=== PATIENT | male | born 1930 | race Caucasian/White ===

== ENCOUNTER 2018-01-22 06:35 | Outpatient (CLI) | payer MEDICARE, BC ==
[~2018-01-22] VITALS: Ht 167.6 cm; Wt 70.5 kg
[~2018-01-22 06:35] MED LIST: ARICEPT10 MG PO; NORVASC5 MG PO; PROSCAR5 MG PO; VASOTEC10 MG PO; ZOLOFT50 MG PO
[2018-01-22 06:45] VITALS: BP 161/94; Ht 167.6 cm; Wt 70.5 kg
[2018-01-22 07:08] LABS: BASOPHILS 0.3 % (0-2); EOSINOPHILS 2.8 % (0-7); HEMATOCRIT 34.1 % (42.0-54.0); HEMOGLOBIN 11.7 g/dL (13.5-17.5); IMMATURE GRANULOCYTES 0.3 % (0-5); LYMPHOCYTES 29.5 % (15-50); MCH 32.4 pg (26.0-34.0); MCHC 34.3 g/dL (31.0-37.0); MCV 94.5 fL (80.0-100.0); MEAN PLATELET VOLUME 9.6 fL (7.4-10.4); MONOCYTES 10.6 % (2-11); NEUTROPHILS 56.5 % (40-80); RBC 3.61 10x6/uL (4.20-6.10); RDW 12.7 % (11.5-14.5); WBC 6.5 10x3/uL (4.8-10.8)
[2018-01-22 07:11] LABS: PLATELET COUNT 263 10x3/uL (130-400)
[2018-01-22 07:17] LABS: CALCIUM 9.3 mg/dL (8.5-10.1); CARBON DIOXIDE 25.2 mmol/L (21.0-32.0); CREATININE - SERUM 2.8 mg/dL (0.6-1.3); POTASSIUM - SERUM 4.2 mmol/L (3.5-5.1)
[2018-01-22] MEDS ORDERED: ALEVE220 MG PO (09:28)
== END 2018-01-22 09:37 | disposition home or self-care (01) ==
LOC: D.CATH 06:35
PROVIDERS: Internal Medicine Cardiovascular Disease
DX: I20.9 Angina pectoris, unspecified (principal); Z53.09 Procedure and treatment not carried out because of other contraindication; Z01.812 Encounter for preprocedural laboratory examination

== ENCOUNTER 2018-03-03 10:08 | Outpatient (CLI) | payer MEDICARE, BC ==
[~2018-03-03] VITALS: Ht 167.6 cm; Wt 70.5 kg
--- NOTE | ~2018-03-03 | HEMODYNAMI ---
PATIENT:MO QUAN MEDICAL RECORD: [id number] : 32 LOCATION:[facility] ADMISSION DATE: 03/03/18 Generatedon:03/03/201816:12 Patient name: MO QUAN Patient #: [id number] SSN: [id number] : 1930 Date of study: 03/03/2018 Page: Of Hemodynamic Procedure Report Patient Data Patient Demographics Procedure consent was obtained First Name: MO Gender: Male Last Name: KADEEM : 1930 Middle Initial: ANIBAL Age: 88 year(s) Patient #: [id number] Race: SSN: [id number] Additional ID: [id number] Contact details [address]: [address] [place] [address] State: [place] City: [place] Zip code: [address] Admission Admission Data Admission Date: 03/03/2018 Admission Time: 10:08 Procedure Procedure Types Cath Procedure Diagnostic Procedure LHC LHC w/Coronaries Sedation Charges Moderate Sedation up to 15 minutes Procedure Description Procedure Date Procedure Date: 03/03/2018 Procedure Start Time: 15:45 Procedure End Time: 16:07 Procedure Staff Name Function Tangela Lo RT Monitor Silvia Mena RT Scrub Sterling Garcia RN Nurse Ramsey Peter MD Performing Physician Procedure Data Cath Procedure Fluoroscopy Diagnostic fluoroscopy Total fluoroscopy Time: 3.3 time: 3.3 min min Diagnostic fluoroscopy Total fluoroscopy dose: 327 dose: 327 mGy mGy Contrast Material Contrast Material Type Amount (ml) Isovue 300 46 Entry Location Entry Primary Successful Side Size Upsize Upsize Entry Closure Succes sful Closure Location (Fr) 1 (Fr) 2 (Fr) Remarks Device Remarks Radial Right 6 Fr Exoseal artery Short Estimated blood loss: 5 ml Diagnostic catheters Device Type Used For End Catheter Placement DIAGNOSTIC Georgi 110cm Multi-vessel 5Fr catheter ([id number]) Angiography Procedure Complications No complications Procedure Medications Medication Administration Route Dosage 0.9% NaCl I.V. 100 ml/hr Oxygen etCO2 Nasal cannula 2 l/min Heparin Flush Bag added to field 2 bags (1000units/500ml NS) Lidocaine 2% added to field 20 Radial Cocktail added to field 1 syringe (Verapomil 2mg/Nitro 400mcg/Heparin 1500units) Versed I.V. 1 mg Fentanyl I.V. 50 mcg Benadryl I.V. 50 mg Radial Cocktail I.A. 1 syringe (Verapomil 2mg/Nitro 400mcg/Heparin 1500units) Hemodynamics Rest Heart Rate: 61 (bpm) Pressure Samples Time Site Value (mmHg) Purpose Heart Use Rate(bpm) 15:58 LV 118/-3,8 Snapshot 61 15:59 AO 125/54(82) Pullback 57 15:59 LV 130/-4,4 Pullback 57 Gradients Valve Time Site 1 Site 2 Mean SEP/DFP Peak To Heart Use (mmHg) (sec/min) Peak Rate (mmHg) (bpm) Aortic 15:59 LV AO 11 13 5 57 130/-4,4 125/54(82) Calculations Valve P-P Mean Valve Index Valve Source Name Gradient Area Flow (cm2) Aortic 5 11 5 11 Snapshots Pre Cath Intra NCS Post Cath Vital Signs Time Heart Resp SPO2 etCO2 NIBP (mmHg) Rhythm Pain Sedation Rate (ipm) (%) (mmHg) Status Level (bpm) 15:31:48 61 12 100 0 173/102(144) NSR 0 (11) 10(A) , No pain 15:36:00 59 15 100 9.7 172/100(116) NSR 0 (11) 10(A) , No pain 15:40:08 63 14 100 14.9 179/103(119) NSR 0 (11) 10(A) , No pain 15:44:13 61 12 91 0.7 174/103(131) NSR 0 (11) 9(A) , No pain 15:48:22 59 16 93 0 155/83(96) NSR 0 (11) 9(A) , No pain 15:52:29 58 14 94 0 136/75(95) NSR 0 (11) 9(A) , No pain 15:56:29 58 12 91 0 143/78(97) NSR 0 (11) 9(A) , No pain 16:00:33 60 14 92 0 144/78(114) NSR 0 (11) 10(A) , No pain 16:04:28 59 14 92 0 141/90(106) NSR 0 (11) 10(A) , No pain Medications Time Medication Route Dose Verified Delivered Reason Notes Effectiveness by by 15:32:55 0.9% NaCl I.V. 100 Sterling Sterling Per ml/hr Radha Garcia physician RN RN 15:33:05 Oxygen etCO2 2 l/min Sterling Sterling Per Nasal Radha Garcia physician cannula RN RN 15:33:17 Heparin Flush added 2 bags Sterling Sterling used for Bag to Lorigan Radha procedure (1000units/500ml field RN RN NS) 15:33:28 Lidocaine 2% added 20ml Sterling Sterling for local to vial Lorigan Radha anesthetic field RN RN 15:33:43 Radial Cocktail added 1 Sterling Sterling used for (Verapomil to syringe Kateigan Radha procedure 2mg/Nitro field RN RN 400mcg/Heparin 1500units) 15:38:32 Versed I.V. 1 mg Sterling Sterling for sedation Radha Garcia RN RN 15:38:41 Fentanyl I.V. 50 mcg Sterling Sterling for sedation Radha Garcia RN RN 15:43:17 Benadryl I.V. 50 mg Sterling Sterling Per Kateigan Radha physician RN RN 15:47:43 Radial Cocktail I.A. 1 Sterling Ramsey for (Verapomil syringe Radha Peter MD vasodilation 2mg/Nitro RN 400mcg/Heparin 1500units) Procedure Log Time Note 15:14:13 Informed consent obtained and on chart 15:14:41 Diagnostic Cath Status : Elective 15:16:01 Leticia Arthur RN sent for patient. Start room use. 15:16:02 Time tracking: Regular hours (M-F 7:00 - 5:00) 15:16:07 Plan of Care:Hemodynamics will remain stable., Cardiac rhythm will remain stable., Comfort level will be maintained., Respiratory function will remain adequate., Patient/ family verbilizes understanding of procedure., Procedure tolerated without complication., Recovers from procedure without complications.. 15:30:41 Patient received from Pre/Post Procedure Room to [facility] 2 Alert and oriented. Tansferred to table in Supine position. 15:30:42 Warm blankets applied, and china hugger turned on for patient comfort. 15:30:42 Correct patient and procedure confirmed by team. 15:30:43 ECG and BP/O2 sat monitors applied to patient. 15:30:43 Vital chart was started 15:30:44 Baseline sample Acquired. 15:30:48 Rhythm: sinus rhythm 15:30:50 Full Disclosure recording started 15:30:54 H&P Date Dictated: 03/03/2018 Within 30 days and on chart., H&P Addendum completed by physician on day of procedure. (MUST COMPLETE FOR ALL OUTPATIENTS). 15:30:55 Pre-procedure instructions explained to patient. 15:30:56 Pre-op teaching completed and patient verbalized understanding. 15:30:57 Family in waiting room. 15:30:59 Patient NPO since Midnight. 15:31:01 Is the patient allergic to Iodine/contrast media? No. 15:31:02 Was the patient premedicated? No 15:31:10 Is patient on blood thinner?No 15:31:25 Patient diabetic? No. 15:31:27 Previous problem with sedation/anesthesia? No ? 15:31:29 Snore? Yes 15:31:30 Sleep apnea? No 15:31:31 Deviated septum? No 15:31:31 Opens mouth fully? Yes 15:31:32 Sticks out tongue? Yes 15:31:33 Airway obstruction? No ? 15:31:36 Dentures? No ? 15:31:40 Pre procedure: right dorsailis pedis pulse 2+ Normal; easily identifiable; not easily obliterated 15:31:42 Pre procedure: left dorsailis pedis pulse 2+ Normal; easily identifiable; not easily obliterated 15:31:44 Patient pain scale 0/10 ?. 15:31:51 IV patent on arrival in left forearm with 0.9% NaCl at [facility]. 15:31:53 Lab results completed and on chart. 15:32:01 Right Radial & Right Groin area was prepped with chlora-prep and draped in sterile fashion 15:32:02 Alarms reviewed by R. N. 15:32:03 Sharps counted by scrub and verified by R.N. 15:32:55 0.9% NaCl 100 ml/hr I.V. was administered by Sterling Garcia RN; Per physician; 15:33:05 Oxygen 2 l/min etCO2 Nasal cannula was administered by Sterling Garcia RN; Per physician; 15:33:17 Heparin Flush Bag (1000units/500ml NS) 2 bags added to field was administered by Sterling Garcia RN; used for procedure; 15:33:28 Lidocaine 2% 20ml vial added to field was administered by Sterling Garcia RN; for local anesthetic; 15:33:43 Radial Cocktail (Verapomil 2mg/Nitro 400mcg/Heparin 1500units) 1 syringe added to field was administered by Sterling Garcia RN; used for procedure; 15:34:57 Physician arrived 15::57 --------ALL STOP TIME OUT------ 15:34:59 Final Timeout: patient, procedure, and site verified with staff and physician. All members of the team are in agreement. 15:35:06 Right Radial & Right Groin site verified by team. 15:35:09 Physical assessment completed. ASA score P 2 - A patient with mild systemic disease as per Ramsey Peter MD. 15:35:15 Sedation plan: IV Moderate Sedation Medication:Versed, Fentanyl 15:36:11 Use device set Radial Dx or PCI 15:36:12 ACIST Syringe (61901) opened to sterile field. 15:36:12 Medline Cath Pack ([id number]) opened to sterile field. 15:36:13 Bag Decanter (2002) opened to sterile field. 15:36:13 DIAGNOSTIC WIRE .035 260cm J wire (900975) opened to sterile field. 15:36:14 ACIST Hand Control (52912) opened to sterile field. 15:36:14 ACIST Manifold (39571) opened to sterile field. 15:36:15 Tegaderm 4 x 4 (1626W) opened to sterile field. 15:36:16 SHEATH 6Fr Prelude Radial ([id number]) opened to sterile field. 15:36:17 MBrace Wrist Support ([id number]) opened to sterile field. 15:38:32 Versed 1 mg I.V. was administered by Sterling Garcia RN; for sedation; 15:38:41 Fentanyl 50 mcg I.V. was administered by Sterling Garcia RN; for sedation; 15:43:17 Benadryl 50 mg I.V. was administered by Sterling Garcia RN; Per physician; 15:45:32 Procedure started. 15:45:38 Local anesthetic to right radial artery with Lidocaine 2% by Ramsey Peter MD.INITIAL ACCESS ONLY 15:45:46 A 6 Fr Short sheath was inserted into the Right Radial artery 15:47:24 A DIAGNOSTIC Georgi 110cm 5Fr catheter (600332) was advanced over the wire and used for Multi-vessel Angiography. 15:47:43 Radial Cocktail (Verapomil 2mg/Nitro 400mcg/Heparin 1500units) 1 syringe I.A. was administered by Ramsey Peter MD; for vasodilation; 15:48:42 Catheter removed. unable to cannulate vessel. 15:49:16 SHEATH 5Fr Prelude ([id number]) opened to sterile field. 15:49:17 DIAGNOSTIC Multipack 5Fr catheter set (GI2276) opened to sterile field. 15:50:28 5 Fr jl 4 guide catheter was inserted over the wire 15:54:25 LCA angiography performed. 15:54:30 Injector settings: Ml/sec: 3, Volume: 6, 15:54:34 Catheter removed. 15:54:41 5 Fr 3drc guide catheter was inserted over the wire 15:56:01 RCA angiography performed. 15:56:03 Injector settings: Ml/sec: 3, Volume: 6, 15:57:39 Catheter removed. 15:57:47 5 Fr pigtail guide catheter was inserted over the wire 15:58:56 LV hemodynamics recorded. 15:58:58 LV gram done using PHILLIPS 15:59:00 Injector settings: Ml/sec: 5, Volume: 15, 15:59:11 EF : 60 % 15:59:35 Catheter removed. 16:01:33 EXOSEAL 5Fr (EX500) opened to sterile field. 16:01:49 Sheath removed intact; hemostasis achieved with Exoseal to the Right Radial artery. 16:01:51 Procedure ended.(Physican Out) 16:02:12 Fluoroscopy time 03.30 minutes. 16:02:32 Flurop Dose total: 327 16:02:32 Fluoroscopy dose: 327 mGy 16:03:10 TR BAND Standard ([id number]) opened to sterile field. 16:03:46 Contrast amount:Isovue 300 46ml. 16:03:47 Sharps counted by scrub and verified by R.N. 16:03:50 TR band inflated with 10cc of air. 16:03:52 Insertion/operative site no bleeding no hematoma. 16:05:18 Post-op/insertion site Right Femoral artery dressed using a 4 x 4 and Tegaderm. 16:05:22 Post right femoral artery:stable 16:05:24 Post Procedure Pulses reassessed and unchanged 16:05:27 Post procedure rhythm: unchanged. 16:05:29 Estimated blood loss: 5 ml 16:05:31 Post procedure instruction explained to patient.Patient verbalizes understanding. 16:05:31 Patient needs reinforcement of post procedure teaching. 16:06:21 Procedure type changed to Cath procedure, Diagnostic procedure, LHC, LHC w/Coronaries, Sedation Charges, Moderate Sedation up to 15 minutes 16:06:22 Procedure and supply charges have been captured, reviewed, submitted and are correct. 16:06:27 Procedure Complication : No complications 16:06:29 Vital chart was stopped 16:06:30 See physician's report for complete and final results. 16:07:33 Report given to Pre/Post Procedure Room. 16:07:36 Patient transfered to Pre/Post Procedure Room with Stretcher. 16:07:40 Procedure ended. 16:07:40 Full Disclosure recording stopped 16:07:45 End room use (Document Last) Device Usage Item Name Manufacture Quantity Catalog Number Hospital Part Current M inimal Lot# / Charge Number Stock Stock Serial# Code ACIST Syringe Acist 1 85356 468246 795566 420960 2 0 (15487) [employer] Inc Medline Cath Cardinal 1 [id number] 999660 65160 695730 5 [facility] ([id number]) Bag Decanter Microtek 1 586423 75095 925329 5 () Medical Inc. DIAGNOSTIC WIRE [address] [place] 1 569595 977892 762625 332209 3 0 .035 260cm J wire (702843) ACIST Hand Acist 1 81884 522959 583462 121892 5 Control (29171) [employer] Inc ACIST Manifold Acist 1 75130 471940 408123 212647 5 (95497) [employer] Inc Tegaderm 4 x 4 3M 1 1626W 316882 872435 633083 5 (1626W) SHEATH 6Fr Merit 1 [id number] 030375 523612 630101 5 Prelude Radial Medical ([id number]) MBrace Wrist Advanced 1 140-0250-00 386951 04805 385352 5 Support Vascular ([id number]) Dynamics DIAGNOSTIC Terumo 1 40-9719 730924 125974 454095 5 Georgi 110cm 5Fr catheter (284093) SHEATH 5Fr Merit 1 [id number] 560527 795295 202256 5 Prelude Medical ([id number]) DIAGNOSTIC Cardinal 1 NZ7726 179266 56575 343260 3 0 Multipack 5Fr Health catheter set (DX8874) EXOSEAL 5Fr Cardinal 1 EX500 063108 628930 039464 1 0 (EX500) Health TR BAND Terumo 1 [id number] 943268 484643 504235 4 0 Standard ([id number]) Signature Audit Sandpoint Stage Time Signature Unsigned Intra-Procedure 03/03/2018 Tangela Lo 4:11:56 PM RT(R) Signatures Monitor : Tangela Lo RT Signature : Date : Time : [address] [address]
[~2018-03-03 10:08] MED LIST changes: +ALEVE220 MG PO
[2018-03-03 10:34] VITALS: BP 136/87; Ht 167.6 cm; Wt 70.5 kg
[2018-03-03] MEDS ORDERED: NORMODYNE / TR200 MG PO (10:50)
[2018-03-03] MEDS ORDERED: CALCIUM 600+D T1 TA1 PO (10:51)
[2018-03-03] MEDS ORDERED: VITAMIN C1000 MG PO (10:51)
[2018-03-03 10:52] LABS: BASOPHILS 0.2 % (0-2); EOSINOPHILS 2.2 % (0-7); HEMATOCRIT 35.6 % (42.0-54.0); IMMATURE GRANULOCYTES 0.2 % (0-5); LYMPHOCYTES 20.9 % (15-50); MCH 32.9 pg (26.0-34.0); MCHC 33.7 g/dL (31.0-37.0); MCV 97.5 fL (80.0-100.0); MEAN PLATELET VOLUME 9.7 fL (7.4-10.4); MONOCYTES 8.5 % (2-11); PLATELET COUNT 230 10x3/uL (130-400); RBC 3.65 10x6/uL (4.20-6.10); RDW 13.1 % (11.5-14.5); WBC 8.6 10x3/uL (4.8-10.8)
[2018-03-03] MEDS ORDERED: CLARITIN 10 MG10 MG PO (10:52)
[2018-03-03 11:11] LABS: ANION GAP 15.3 mmol/L (8-16); CALCIUM 9.5 mg/dL (8.5-10.1); CARBON DIOXIDE 25.4 mmol/L (21.0-32.0); CREATININE - SERUM 2.6 mg/dL (0.6-1.3); POTASSIUM - SERUM 4.7 mmol/L (3.5-5.1)
== END 2018-03-03 19:35 | disposition home or self-care (01) ==
LOC: D.CATH 10:08
PROVIDERS: Internal Medicine Cardiovascular Disease
DX: I25.119 Atherosclerotic heart disease of native coronary artery with unspecified angina pectoris (principal); I12.9 Hypertensive chronic kidney disease with stage 1 through stage 4 chronic kidney disease, or unspecified chronic kidney disease; N18.9 Chronic kidney disease, unspecified

== ENCOUNTER → 2018-03-25 12:53 | Outpatient (CLI) | payer MEDICARE, BC ==
[2018-03-03 10:34] VITALS: BMI 25.0
[~2018-03-25 12:53] MED LIST changes: +ALBUTEROL2.5 MG/3 M UPD; +CALCIUM 600+D T1 TA1 PO; +CLARITIN 10 MG10 MG PO; +COLACE100 MG PO; +CORDARONE200 MG PO; +FLUTICASONE PRO16 GM NASAL; +MEGACE400 MG/10 PO; +MIRALAX17 GM PO; +MUCINEX600 MG PO; +MYLANTA / MAALO30 ML PO; +NEURONTIN 300300 MG PO; +NORMODYNE / TR200 MG PO; +PROTONIX I40 MG/VIAL IV; +PROTONIX40 MG PO; +SENOKOT-S TABLE1 TAB PO; +VITAMIN C1000 MG PO
== END | disposition home or self-care (01) ==
LOC: D.US 12:53
DX: I65.23 Occlusion and stenosis of bilateral carotid arteries (principal); Z01.818 Encounter for other preprocedural examination

== ENCOUNTER 2018-04-07 05:00 | Inpatient (IN) | payer MEDICARE, BC ==
[2018-04-06 15:17] LABS: BASOPHILS 0.1 % (0-2); EOSINOPHILS 2.2 % (0-7); HEMATOCRIT 34.7 % (42.0-54.0); HEMOGLOBIN 11.9 g/dL (13.5-17.5); IMMATURE GRANULOCYTES 0.1 % (0-5); MCH 33.2 pg (26.0-34.0); MCHC 34.3 g/dL (31.0-37.0); MCV 96.9 fL (80.0-100.0); MEAN PLATELET VOLUME 9.5 fL (7.4-10.4); MONOCYTES 9.1 % (2-11); NEUTROPHILS 70.5 % (40-80); PLATELET COUNT 236 10x3/uL (130-400); RBC 3.58 10x6/uL (4.20-6.10); RDW 12.9 % (11.5-14.5); WBC 7.8 10x3/uL (4.8-10.8)
[2018-04-06 15:23] LABS: APPEARANCE CLEAR (CLEAR); BILIRUBIN NEGATIVE (NEGATIVE); COLOR YELLOW (YELLOW); GLUCOSE NEGATIVE (NEGATIVE); KETONE NEGATIVE (NEGATIVE); NITRITE NEGATIVE (NEGATIVE); PROTEIN NEGATIVE (NEGATIVE); SPECIFIC GRAVITY 1.015 (1.005-1.020); UROBILINOGEN NORMAL (NORMAL)
[2018-04-06 15:29] LABS: APTT 27.1 SECONDS (22.8-39.4); INR 0.98 (0.85-1.17); PROTIME 12.6 SECONDS (11.6-15.0)
[2018-04-06 15:51] LABS: ALBUMIN 3.5 g/dL (3.4-5.0); ANION GAP 15.3 mmol/L (8-16); BILIRUBIN - TOTAL 0.51 mg/dL (0.2-1.3); CALCIUM 9.1 mg/dL (8.5-10.1); CARBON DIOXIDE 26.1 mmol/L (21.0-32.0); CREATININE - SERUM 2.8 mg/dL (0.6-1.3); PHOSPHOROUS 5.2 mg/dL (2.5-4.9); POTASSIUM - SERUM 4.4 mmol/L (3.5-5.1); T4 THYROXIN - FREE 0.83 ng/dL (0.76-1.46); THYROID STIMULATING HORMONE 2.46 uIU/mL (0.36-3.74)
[~2018-04-07] VITALS: Ht 167.6 cm; Wt 68.2 kg
[2018-04-07] VITALS (38 sets, daily range): BP systolic 116–144; BP diastolic 59–80; BMI 25.2; BMI 27.1
--- NOTE | ~2018-04-07 | PN ---
PATIENT:MO QUAN MEDICAL RECORD: [id number] LOCATION:[facility] ADMISSION DATE: 04/07/18 PROGRESS NOTE DATE OF SERVICE: 04/26/2018 This is an 88-year-old man who was admitted with chest pain, was found to have coronary artery disease, myocardial injury. The patient was taken to surgery for bypass graft surgery. The patient subsequently developed acute kidney injury, was also noted to have bibasilar infiltrates/atelectasis. Was given Solu-Medrol, antibiotics, also had bronchodilators, initially was started on BiPAP with improvement. Has not been on BiPAP for the last 4-5 days. Had a large blood per rectum requiring about 3 units of blood. The patient had some rectal bleeding today. He is awake and alert. No shortness of breath. No abdominal pain. There is no fever or chills. PHYSICAL EXAMINATION: GENERAL: Physical exam reveals an elderly man who is seen supine in bed. VITAL SIGNS: Temperature 98.2, heart rate of 77, respiratory rate 21, blood pressure 130/84. SHEENT: Unremarkable. NECK: Supple. There is no adenopathy. Trachea is midline. LUNGS: Clear with good airflow bilaterally. No wheezes or crackles. HEART: Exam shows no jugular venous distention, no murmur or gallop. ABDOMEN: Benign. There is no tenderness. NEUROLOGIC: Intact. Mental status is normal. LABORATORY DATA: White count of 19.9, hemoglobin 12.3, repeat subsequently was 11.9, platelet count is 201,000. Chemistries remarkable for potassium of 3.5, bicarbonate is 30, sodium is 133. Chest x-ray showed left upper lobe atelectasis, improved aeration is noted since the previous exam. ASSESSMENT AND PLAN: 1. Acute respiratory failure with hypercapnia and hypoxia. This is improved on BiPAP, has not required BiPAP for the last 4 days. 2. Coronary artery disease, status post coronary artery bypass graft surgery. 3. Gastrointestinal bleed, it is unclear about the source, bleeding scan was negative. 3. Acute kidney injury. The patient is on dialysis. 4. Chronic obstructive pulmonary disease. DISCUSSION: NEUROPSYCHIATRY: The patient's mental status is improved, probably at baseline. There are no focal signs suggestive for stroke. CARDIOVASCULAR: The patient has coronary artery disease with acute UT. PULMONARY/RESPIRATORY: The patient is stable. Stable pulmonary status. To continue bronchodilators. PROGRESS NOTE [id number] MO QUAN PLAN: 1. Continue bronchodilators. 2. Stop antibiotics. 3. Pulmonary will sign off. If needed, please call the pulmonary team. TRANSINT:[id number] Voice Confirmation ID: [id number] DOCUMENT ID: [id number] AYAKA FARMER at 0808 CC: [id number] DICTATION DATE: 04/26/18 1552 AIRCRAFT SYSTEMS REPAIRER: 04/26/18 2113 ADM IN [facility] [address] [place] [id number]
--- NOTE | ~2018-04-07 | OP ---
PATIENT NAME: MO QUAN MEDICAL RECORD: [id number] :31 LOCATION:[facility] ADMISSION DATE:04/07/18 SURGEON: RUBY MCGREGOR MD DATE OF OPERATION: 04/19/2018 PREOPERATIVE DIAGNOSES: 1. Coronary artery disease, status post CABG. 2. Acute renal failure. 3. Hypertension. 4. Hyperlipidemia. 5. Anemia of chronic disease. POSTOPERATIVE DIAGNOSES: 1. Coronary artery disease, status post CABG. 2. Acute renal failure. 3. Hypertension. 4. Hyperlipidemia. 5. Anemia of chronic disease. PROCEDURE: Right IJ 12.5-cm Trialysis catheter placement. SURGEON: Ruby Mcgregor MD REPORT OF PROCEDURE: The patient's right neck was prepped and draped in sterile fashion. A total of 5 mL of 1% lidocaine was infused into the surrounding tissues. Using ultrasound guidance, a needle was then used to cannulate the right internal jugular vein and a guidewire was advanced with ease. Over this wire, dilator was placed followed by the Trialysis catheter. The catheter aspirated nonpulsatile dark blood and flushed easily in all 3 ports. This was sutured into place with 3-0 nylons and dressed appropriately. COMPLICATIONS: None. CONDITION: Stable. ANESTHESIA: Local. BLOOD LOSS: Minimal. Procedure done at the bedside. TRANSINT:[id number] Voice Confirmation ID: [id number] DOCUMENT ID: [id number] RUBY MCGREGOR MD at 1110 CC: [id number] DICTATION DATE: 04/19/18 1151 ENDOCRINOLOGY PHYSICIAN: 04/19/18 1251 ADM IN [place] [address] [place] [address]
--- NOTE | ~2018-04-07 | TEE ---
PATIENT:MO QUAN MEDICAL RECORD: [id number] LOCATION:[place] [address] AGE OF PATIENT: 88 ADMISSION DATE: 04/07/18 SEX: M REFERRING PHYSICIAN: INTERPRETING PHYSICIAN: WILLA GARZA MD TRANSESOPHAGEAL ECHOCARDIOGRAM Date: 04/07/18 PAUL CHARGE Y INDICATIONS: CABG PREMEDICATIONS: PATIENT'S RESPONSE PROCEDURE DOPPLER MEASUREMENTS: LVIT LA PA RA LVOT RVOT Asc. Ao AV Gradient Peak AV Mean AV Area MV Gradient Peak MV Mean MV Area INTERPRETATION: Doppler: 2-D: COLOR FLOW DOPPLER NORMAL SALINE STUDY: MISCELLANOUS: DIAGNOSIS: PLAN: Tool Coordinator:2 Dr. Peter Director Of Business Applications: Filipe ELDER COMMENTS: DATE OF SERVICE: 04/07/2018 PROCEDURE: Transesophageal echo evaluation of valvular structures during bypass surgery. FINDINGS: 1. Left ventricular chamber size is within normal limits. Left ventricular systolic function is normal. Overall ejection fraction estimated at 60%. 2. Left atrium, right atrium, and right ventricular chamber sizes are within TRANSESOPHAGEAL ECHOCARDIOGRAM REPORT [id number] MO QUAN normal limits. 3. Valvular structures have normal structure and motion. 4. Doppler interrogation reveals no significant valvular insufficiency or stenosis. 5. No evidence of pericardial effusion or left ventricular thrombus. TRANSINT:[id number] Voice Confirmation ID: [id number] DOCUMENT ID: [id number] at 1208 CC: [id number] DICTATION DATE: 04/07/18 1102 BANK MESSENGER: 04/07/18 1520 [place] [address]
--- NOTE | ~2018-04-07 | OP ---
PATIENT NAME: MO QUAN MEDICAL RECORD: [id number] :31 LOCATION:D.[facility] D.CV06 ADMISSION DATE:04/07/18 SURGEON: RICHARD ANGUIANO MD DATE OF OPERATION: 05/02/2018 PREOPERATIVE DIAGNOSES: 1. Malfunctioning Trialysis catheter (non-tunneled non-cuffed 3-lumen hemodialysis catheter). 2. Acute kidney injury requiring hemodialysis. POSTOPERATIVE DIAGNOSES: 1. Malfunctioning Trialysis catheter (non-tunneled non-cuffed 3-lumen hemodialysis catheter). 2. Acute kidney injury requiring hemodialysis. PROCEDURE: Trialysis catheter placement at the right neck. SURGEON: Richard Anguiano MD PANTOGRAPH OPERATOR: None. BLOOD LOSS: Minimal. ANESTHESIA: Local. COMPLICATIONS: None. OPERATIVE COURSE: The patient was seen in his ICU bed. The right neck was sterilely prepped and draped including the indwelling Trialysis catheter. A local anesthetic was used to infiltrate the skin and subcutaneous tissues at the base of the right neck. The sutures from the Trialysis catheter to the skin were cut. I advanced a guidewire down through the longest lumen. I withdrew the Trialysis catheter over the wire. I then placed a short Trialysis catheter over the wire. It was advanced to the hub. The wire was removed. All the lumens flushed easily and aspirated dark, nonpulsatile blood. The Trialysis catheter was then sutured in place with a 3-0 nylon times 3. A sterile dressing was applied. TRANSINT:[id number] Voice Confirmation ID: [id number] DOCUMENT ID: [id number] RICHARD ANGUIANO MD at 1047 CC: [id number] DICTATION DATE: 05/03/18 1242 GROUP EXERCISE CLASS INSTRUCTOR: 05/03/[address] [facility] [address] [place] [address]
--- NOTE | ~2018-04-07 | PN ---
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 The patient has also had a history of chronic obstructive pulmonary disease. The patient had hypoxemic respiratory failure. The patient has been on bronchodilators as well as systemic steroids. He also has rhinitis with postnasal drip and is on Flonase as well as saline nasal spray. The patient states that his breathing is improved. His coughing has also decreased. There is no fever or chill. The patient denies any orthopnea. PHYSICAL EXAMINATION: GENERAL: Reveals an elderly man who is hard of hearing. VITAL SIGNS: Temperature 97.5, heart rate of 76, respiratory rate of 20, blood pressure 119/54, saturation 97%. SHEENT: Unremarkable. Nares are normal. NECK: Supple. Trachea is midline. There is no thyromegaly. There is no adenopathy. LUNGS: Clear with crackles on coughing. There is no chest wall tenderness. There is no accessory muscle use. CARDIAC: Showed no jugular venous distention, murmur, or gallops. ABDOMEN: Benign. There is no tenderness. There is no distention. No masses. EXTREMITIES: There is no clubbing, cyanosis or edema. LABORATORY DATA: Showed CBC: White count 26.2, hemoglobin 10.7, platelet count is 441,000. Chemistry is unremarkable except for a creatinine of 5.3, BUN of 116. Chest x-ray showed bibasilar airspace disease, possibly bibasilar atelectasis. Tiny left pleural effusion. There is emphysematous changes. ASSESSMENT: 1. Acute exacerbation of chronic obstructive pulmonary disease. 2. The ventricular dysfunction. There is no evidence of failure at this time. 3. Chronic renal disease. 4. Rhinitis. PLAN: 1. Continue dialysis. 2. Titrate Solu-Medrol. 3. Continue Lasix 40 mg every 8 hours. 4. DVT prophylaxis. TRANSINT:[id number] Voice Confirmation ID: [id number] DOCUMENT ID: [id number] PROGRESS NOTE [id number] MO QUAN AYAKA FARMER at 1947 CC: [id number] DICTATION DATE: 04/21/181926 WORM GROWER: 04/22/18 0539 ADM IN [facility] [address] [id number]
--- NOTE | ~2018-04-07 | PN ---
PATIENT:MO QUAN MEDICAL RECORD: [id number] LOCATION:[facility].CV0 ADMISSION DATE: 04/07/18 PROGRESS NOTE DATE OF SERVICE: 04/22/2018 SUBJECTIVE: This is an 88-year-old man who has had a history of end-stage renal disease. The patient has also had coronary artery disease with stable angina. He also has dementia. He has dyspnea on exertion and admission was to have possible bibasilar atelectasis or pneumonia. The patient has been on antibiotics, has been doing well. Dialysis was placed after the patient had acute renal failure secondary to CABG. The patient was very sleepy during the daytime and at night since surgery. No sedation has been given. He, however, takes various sedatives. There is no fever or chills. There is no shortness of breath. PHYSICAL EXAMINATION: GENERAL: Reveals an elderly male who is in no acute distress, rather sleepy. Pulmonary tries to wake him up and keep him awake, but he goes to sleep less than minutes after opening the eyes. VITAL SIGNS: Temperature 98.2, heart rate of 81, respiratory rate 18, blood pressure 128/79, saturation 94%. SHEENT: Unremarkable. Nares are normal. HEENT: Oral cavity is also normal. NECK: Supple. There is no adenopathy. There is no tenderness. Trachea is midline. LUNGS: Clear with good airflow bilaterally. There are no wheezes or crackles. No accessory muscle use. HEART: Shows no jugular venous distention. No murmur or gallop. ABDOMEN: Benign. EXTREMITIES: There is no clubbing, cyanosis, or edema. LABORATORY DATA: White count of 22.3, hemoglobin 10.4 and platelet count is 417. Chemistry is remarkable for creatinine of 4.8, BUN of 21, potassium 4.5. Chest x-ray showed bibasilar airspace disease with basilar atelectasis. There are tiny left pleural effusions. There is also apical suggestion of emphysematous changes. ASSESSMENT AND PLAN: 1. Ixnjf-oi-qjirujh renal failure. The patient had a line for dialysis. 2. Chronic obstructive pulmonary disease. 3. Dementia. 4. Hypersomnolence secondary to medication. 5. Leukocytosis, possible secondary to steroids/dose will be decreased, then tapered off. 6. Coronary artery disease, status post coronary artery bypass graft. 7. Insertion of dialysis catheter. PLAN: 1. Decrease Solu-Medrol, tapering it off. 2. Stop hydromorphone, not coughing. 3. Stop Tessalon. 4. Reduce Neurontin to 100 mg t.i.d. 5. Continue Aricept. 6. Continue Zoloft. PROGRESS NOTE [id number] MO QUAN 7. Orders can be decreased. TRANSINT:[id number] Voice Confirmation ID: [id number] DOCUMENT ID: [id number] AYAKA FARMER at 1241 CC: [id number] DICTATION DATE: 04/22/181999 ADOBE LAYER: 04/23/18 0211 ADM IN [facility] [address] [place] [address]
--- NOTE | ~2018-04-07 | OP ---
PATIENT NAME: MO QUAN MEDICAL RECORD: [id number] :31 LOCATION:D.STEFFII D.CV06 ADMISSION DATE:04/07/18 SURGEON: ALEXIA ANGUIANO MD DATE OF OPERATION: 05/06/2018 PREOPERATIVE DIAGNOSES: 1. Malfunctioning right IJ Trialysis catheter, which is a triple lumen, non-tunneled, non-cuffed hemodialysis catheter. 2. Acute renal failure requiring hemodialysis. 3. Lack of peripheral IV access. POSTOPERATIVE DIAGNOSES: 1. Malfunctioning right IJ Trialysis catheter, which is a triple lumen, non-tunneled, non-cuffed hemodialysis catheter. 2. Acute renal failure requiring hemodialysis. 3. Lack of peripheral IV access. PROCEDURES: 1. Placement of right internal jugular HemoSplit catheter, which is a dual lumen tunneled cuffed hemodialysis catheter, 19 cm under fluoroscopic guidance. 2. Immediate surgeon interpretation of fluoroscopic images. 3. Placement of a 16 cm double lumen central venous catheter at the right IJ site. SURGEON: Alexia Anguiano MD CANTEEN ATTENDANT: None. BLOOD LOSS: Less than 25 cc. ANESTHESIA: General. COMPLICATIONS: None. The risks, possible complications and alternatives to procedure were explained to the patient's family. A consent form was signed. OPERATIVE COURSE: The patient was conveyed to the operating room electively on 05/06/2018. General anesthesia was induced by the anesthesia staff. No radiologist was present for this procedure. Fluoroscopic images were obtained and are kept in the PACS system. The surgeon interpretation of the radiographic images is dictated within the body of this operative note. Under ultrasonographic guidance, I percutaneously accessed the right internal jugular vein in an antegrade fashion. Guidewire was passed easily. This was visualized under fluoroscopy. An incision was accomplished around the guidewire. A counterincision was accomplished in the right anterior superior chest. I tunneled a 19-cm HemoSplit catheter from the chest incision to the neck incision. Over the wire, I dilated to a larger size and this was visualized under fluoroscopy. A dilator sheath was then advanced. The dilator and wire were removed. The tips of the HemoSplit catheter were advanced and the Peel-Away sheath was then removed. I then pulled back on the HemoSplit catheter hub in order to seat the cuff in the subcutaneous tissues. Under fluoroscopy, an image was obtained over the mediastinum. There was no OPERATIVE REPORT [id number] MO QUAN radiographic evidence of complication. The longest HemoSplit catheter tip appeared to be at the cavoatrial junction. There was another image over the right lung apex and there was no radiographic evidence of complication such as pneumothorax. The neck incision was closed with intracuticular 3-0 Vicryl and then a horizontal mattress 3-0 Vicryl. The flange of the HemoSplit catheter was sutured to the underlying skin with 2-0 nylons. Both lumens of the HemoSplit catheter flushed easily and aspirated dark, nonpulsatile blood. I then flushed both lumens of the HemoSplit catheter with the appropriate amount of concentrated heparin. Over the Trialysis catheter, I advanced a guidewire. I removed the Trialysis catheter. I then advanced a central venous line over the guidewire. The guidewire was then removed. The central venous line was a double lumen central venous line and this was sutured in place times 3. Both lumens flushed easily and aspirated dark, nonpulsatile blood. Sterile dressings were applied. The patient was then extubated and conveyed to the post-anesthesia care unit where he was in stable condition. TRANSINT:[id number] Voice Confirmation ID: [id number] DOCUMENT ID: [id number] ALEXIA ANGUIANO MD at 1953 CC: CHAD REDDING [id number] DICTATION DATE: 05/06/18 1631 HEAD BOYS TENNIS COACH: 05/06/18 1719 DIS IN 05/07/18 [facility] [address] [place] [address]
--- NOTE | ~2018-04-07 | HP ---
PATIENT: MO QUAN MEDICAL RECORD: [id number] ACCOUNT: [id number] LOCATION:[facility] Nino.CV06 : 31 ADMISSION DATE: 04/07/18 PCP: CHAD REDDING MD HISTORY AND PHYSICAL EXAMINATION MO Jerome (88yo, M) ID# [id number]. Date/Time03/23/2018 09:[id number] Dept.NPP_[facility] ClinicProviderEDBETHANY REDDING MDInsuranceMed Primary: [place] Insurance # : [id number] Med Secondary: [place] Insurance # : [id number] Policy/Group # : [id number] Prescription: INFRX - Member is eligible. Chief Complaint Coronary artery disease EVAL FOR CABG Patient's Care Team Primary Care Provider: SEBASTIAN LIRIANO MD: [address] [place] [phone], , Certified Neurodiagnostic Technologist: LASHONDA WELLS MD: [address] [place] [address], , Patient's Pharmacies [facility] ([facility]): [address] [place] [id number], , Fax Vitals BP:100/68 sitting R arm 03/23/2018 09:56 am 98/70 sitting L arm 03/23/2018 09:57 amBP Cuff Size:adult 03/23/2018 09:56 am adult 03/23/2018 09:57 amHR:64,REG 03/23/2018 09:57 amHt:5 ft 6 in 03/23/2018 09:57 amWt:156 lbs 03/23/2018 09:57 amNotes:HAD SOB. WENT TO [facility] AND HAD ECHO, STRESS TEST, THEN CATH. FIRST CATH WAS CANCELED, THEN RESCHED D/T ELEVATED CREATININE. HAS SOB, CAN'T WALK FRONT OF [facility] TO BACK WITHOUT SOB. 03/23/2018 09:59 amBMI:25.2 03/23/2018 09:57 amAllergies Reviewed Allergies NKDAMedications Reviewed Medications ascorbic acid (vitamin C) 1,000 mg tablet Take by oral route.03/23/18 enteredKathy Wilsoncalcium carbonate 250 mg calcium (625 mg) tablet Take by oral route.03/23/18 enteredKathy Wilsondonepezil 10 mg tablet start filledKathy WilsonFINASTERIDE 5 MG TABS01/02/18 filledUPREHS MEDICARE FORMULARYlabetalol 200 mg tablet TK 1 T PO BID02/24/18 filledsurescriptsLABETALOL HYDROCHLORIDE 200 MG TABS02/24/18 filledUPREHS MEDICARE FORMULARYloratadine 10 mg capsule Take by oral route.03/23/18 enteredKathy WilsonSERTRALINE HCL 100 MG TABS01/02/18 filledUPTOG[facility] MEDICARE FORMULARYProblems Reviewed Problems Hypertensive disorder Coronary arteriosclerosis Knee pain Dyspnea Current tear of medial cartilage AND/OR meniscus of knee Family History Reviewed Family History HISTORY AND PHYSICAL [id number] MO QUAN Father- Cerebrovascular accident - Emphsemia (previously recorded as Stroke) - Coronary arteriosclerosisMother- Cerebrovascular accident - previously recorded as StrokeSocial History Reviewed Social History Smoking Status: Former smoker (Notes: quit 1962) Non-smoker Surgical History Reviewed Surgical History Knee arthroscopy - 01/08/2012 Knee arthroscopy - 12/19/2011 Past Medical History Reviewed Past Medical History Angina: Y Chest Pain: Y Coronary Artery Disease: Y Depression: Y Heart Rhythm Disorder: Y Hyperlipidemia: Y Hypertension: Y Joint Pain or Swelling: Y - hip pain when walking Pain in legs when walking: Y Prostate Problems: Y Rubella, Kiswahili Measles: Y Shortness of Breath: Y Documents for Discussion N/A Screening None recorded. HPI Dyspnea Reported by patient. Quality: dyspnea; SOB WITH EXERTION SO THAT HE CAN'T DO SWIMMING HE WANTS TO DO . Severity: moderate; limits activity Onset/Timing: daily Context: with activity; walking up inclines Alleviating Factors: rest Aggravating Factors: activity Associated Symptoms: no chest pain; no palpitations; no orthopnea; no PND; no fever; no chills; no wheezing; no dietary indiscretion; no sputum production; no hemoptysis; no weight gain; no dyspepsia; HAS SWELLING TO BILAT FEET, ABOUT SIX WEEKS IN DURATION R >L coronary artery disease with angina: Shortness of breath ROS Patient reports exercise intolerance but reports no fever, no night sweats, no significant weight gain, and no significant weight loss. He reports shortness of breath when walking and known heart murmur but reports no chest pain, no arm pain on exertion, no shortness of breath when lying down, and no palpitations. He reports muscle aches, muscle weakness, and arthralgias/joint pain but reports no back pain and no swelling in the extre mities. He reports no dry eyes, no irritation, and no vision change. He reports no difficulty hearing and no ear pain. He reports no frequent nosebleeds and no nose/sinus problems. He reports no sore throat, no bleeding gums, no snoring, no dry mouth, no m outh ulcers, no oral abnormalities, and no teeth problems. He reports no jugular vein distension and no swollen glands. HISTORY AND PHYSICAL [id number] MO QUAN He reports no cough, no wheezing, no shortness of breath, and no coughing up blood. He reports no abdominal pain, no vomiting, normal a p petite, no diarrhea, not vomiting blood, no nausea, and no constipation. He reports no incontinence, no difficulty urinating, no hematuria, and no increased frequency. He reports no abnormal mole, no jaundice, and no rashes. He reports no loss of consciou s ness, no weakness, no numbness, no seizures, no dizziness, and no headaches. He reports no depression, no sleep disturbances, feeling safe in relationship, and no alcohol abuse. He reports no fatigue. He reports no swollen glands and no bruising. He repor ts no runny nose, no sinus pressure, no itching, no hives, and no frequent sneezing. ROS as noted in the HPI Physical Exam Patient is an 88-year-old male. Constitutional: General Appearance well nourished and developed and healthy-appearing. Level of Distress NAD. Ambulation ambulation with cane. Cardiovascular: Apical Impulse not displaced or no thrill. Heart Auscultation normal s1 and s2, no rubs or gallops, and RRR and murmur (aortic insufficiency). Arterial Pulses no abdominal aorta bruits, femoral bruits, or popliteal bruits and 2+ bilateral, carotid 2+ bilateral, femoral 2+ bilateral, popliteal 2+ bilateral, and dorsalis pedis 2+ bilateral. Edema no varicosities and edema. Lungs: Repiratory Effort no dyspnea. Percussion no hyperresonance or dullness or flatness. Auscultation no wheezing, rhonchi, or rales / crackles and breathing sounds normal, good air movement, and CTA except as noted. Abdomen: Bowl Sounds normal. Inspection and Palpation no tenderness, guarding, masses, or rebound tenderness and soft and non-distended. Liver non-tender and no hepatomegaly. Spleen non-tender and no splenomegaly. Hernia none palpable. Musculoskeletal System: Gait And Stance normal gait and stance. Digits and Nails normal nails and no cyanosis. Joints, Bones, and Muscles limited ROM and abnormal strength. Neurologic: Cranial Nerves grossly intact. Reflexes DTRs 2+ bilaterally throughout. Sensation grossly intact. Lymph Nodes: Lymph Nodes no cervical LAD, supraclavicular LAD, axillary LAD, or inguinal LAD. Eyes: Lids and Conjunctivae no discharge or pallor and non-injected. Pupils PERRLA. Cornea grossly intact. EOM EOMI. Lens clear. Sclerae non-icteric. Neck: Neck no masses, enlarged lymph nodes, or carotid bruits and supple and trachea midline. Thyroid no enlargement or nodules and non-tender. Skin: Inspection and Palpation no rash, lesions, ulcers, jaundice, or abnormal nevi. Assessment / Plan 1. Coronary arteriosclerosis I25.10: Atherosclerotic heart disease of [place] coronary artery without angina pectoris Return to Office None recorded. HISTORY AND PHYSICAL [id number] MO QUAN EDWARD MD at 1235 CC: [id number] DICTATION DATE: 03/23/18 0930 LEARNING AND DEVELOPMENT CONSULTANT: SHAY 04/02/18 1314 DIS IN 05/07/18 [place] [id number] [place] [address]
--- NOTE | ~2018-04-07 | PN ---
PATIENT:MO QUAN MEDICAL RECORD: [id number] LOCATION:[facility].CV0 ADMISSION DATE: 04/07/18 PROGRESS NOTE DATE OF SERVICE: 04/25/2018 SUBJECTIVE: This is an 88-year-old male who was admitted for severe chest pain that was felt to have acute myocardial infarction. The patient had a cardiac catheterization as mentioned, coronary artery disease. He had a coronary artery bypass graft and subsequently had acute renal failure and dialysis catheter was placed. The patient had had COPD, also found to have acute respiratory failure with hypercapnia. The patient was seen and was placed on BiPAP. He also was given Solu-Medrol as well as bronchodilators with significant improvement. The patient has been doing well, had the GI bleed about 3 days ago and subsequently had severe metabolic acidosis and hypotension, which was treated with sodium bicarbonate the day before. The patient has been doing well. Today, he is awake and alert. There is no fever or chills. His breathing is much improved. PHYSICAL EXAMINATION: GENERAL: Physical exam reveals an elderly gentleman who is in no acute distress, sitting up in the chair. VITAL SIGNS: Temperature 98.8, heart rate 79, respiratory rate 16, blood pressure 129/74, pulse 63. SHEENT: Unremarkable. NECK: Supple, no adenopathy. Trachea is midline. There is no thyromegaly. PULMONARY: Clear with no wheezes or crackles. HEART: Exam shows no jugular venous distention, no murmur or gallops. ABDOMEN: Benign. EXTREMITIES: No clubbing, cyanosis or edema. There are decreased pulses both upper and lower anterior vessels, dorsalis pedis as well as radial arteries. LABORATORY DATA: Lab exam showed white count of 21, hemoglobin 11.8, platelet count 208,000. Arterial blood gases, pH 7.57, pCO2 of 26, pO2 of 63, bicarbonate of 24. Chemistry is remarkable for creatinine of 3.5, BUN 54, potassium 3.7, CO2 of 30. Chest x-ray showed increasing right lower lobe atelectasis. ASSESSMENT: 1. Coronary artery disease, status post coronary artery bypass graft surgery. 2. Acute renal injury. The patient is on dialysis. 3. Acute exacerbation of chronic obstructive pulmonary disease, the patient is on bronchodilators. 4. Acute respiratory failure with hypercapnia. The patient had been on BiPAP but has not been on BiPAP for the last 4 days. PLAN: 1. Continue bronchodilators. 2. Deep venous thrombosis prophylaxis. 3. Continue hemodialysis. TRANSINT:[id number] Voice Confirmation ID: [id number] DOCUMENT ID: [id number] PROGRESS NOTE [id number] MO QUAN AUGUSTINE K at 0942 CC: [id number] DICTATION DATE: 04/25/18 1641 BOOK TRIMMER: 04/26/18 0430 ADM IN [place] [id number] [place] [id number]
--- NOTE | ~2018-04-07 | PN ---
PATIENT:MO QUAN MEDICAL RECORD: [id number] LOCATION:[facility] Sierra[facility]0 ADMISSION DATE: 04/07/18 PROGRESS NOTE DATE OF SERVICE: 04/20/2018 This is an 88-year-old man who I was seeing for hypoxemic respiratory failure. SUBJECTIVE: The patient was treated with antibiotic, as well as bronchodilators. He was started on steroids with significant improvement. The patient states that his nostrils are blocked and unable to breathe through them. The patient presents with a history of chronic obstructive pulmonary disease and has also had a ventricular ejection fraction of 40%. He has had chronic renal disease. He denies any fever or chills. PHYSICAL EXAMINATION: GENERAL: Physical exam reveals an elderly man who is mildly confused. VITAL SIGNS: Temperature 97.9, heart rate of 75, respiratory rate of 21, blood pressure 118/61, saturation 92%. SHEENT: Unremarkable. Some mild mucosal edema and redness. No obstruction. NECK: Supple. There is no adenopathy. Trachea is midline. CHEST: Coarse crackles on coughing. HEART: Exam shows no jugular venous distention. No murmur or gallops. ABDOMEN: Benign. EXTREMITIES: Show no clubbing, cyanosis or edema. LABORATORY DATA: CBC showed white count of 25,000, hemoglobin 10.1, platelet count is 448. He had blood gas with pH 7.52, pCO2 of 38, pO2 of 94, 40% BiPAP. Chemistry is remarkable for creatinine of 5.7, BUN is 145, alkaline phosphatase 165. Chest x-ray showed bibasilar atelectasis and pleural effusions, left worse than right. ASSESSMENT: 1. Ventricular dysfunction with failure. 2. Chronic renal failure, needing dialysis. 3. Rhinitis, probably nonallergic. 4. Acute exacerbation of end-stage pulmonary disease. The patient is currently on bronchodilators. He is also on BiPAP at night and daytime as needed twice a day. 5. Bilateral pleural effusion. Probably needs dialysis for resolution. PLAN: 1. Continue bronchodilators. 2. Continue systemic steroids and taper. 3. DVT prophylaxis. 4. Continue bronchodilators. 5. Nasal spray with saline. TRANSINT:[id number] Voice Confirmation ID: [id number] DOCUMENT ID: [id number] PROGRESS NOTE [id number] MO QUAN AYAKA FARMER at 1920 CC: [id number] DICTATION DATE: 04/20/182141 HEAD TEACHER: 04/21/18 0154 ADM IN [facility] [address] [place] [address]
--- NOTE | ~2018-04-07 | PN ---
PATIENT:MO QUAN MEDICAL RECORD: [id number] LOCATION:[facility].CV0 ADMISSION DATE: 04/07/18 PROGRESS NOTE DATE OF SERVICE: 04/23/2018 SUBJECTIVE: This is an 88-year-old man who was admitted for shortness of breath, was noted to have coronary artery disease. The patient had CABG done and developed acute renal failure. Dialysis catheter was inserted. The patient also was noted to have bibasilar infiltrates. The patient has been on antibiotics as well as bronchodilators. The patient has been somnolent during the daytime. The patient had a large GI bleed per rectum this morning, estimates around 7179-2702 cc of large clots. The patient, however, denies shortness of breath now. No fever. PHYSICAL EXAMINATION: GENERAL: Reveals an elderly man who is in no acute distress, sitting in the chair. VITAL SIGNS: Temperature 98.2, heart rate of 88, respiratory rate of 21, blood pressure 190/61. SHEENT: Unremarkable. NECK: Supple. PULMONARY: Clear. Good airflow bilaterally. HEART: Shows no jugular venous distention, murmur or gallops. ABDOMEN: Benign. EXTREMITIES: No clubbing, cyanosis or edema. LABORATORY DATA: CBC showed white count of 31.5, hemoglobin 9.7 and platelet count is 458,000. Chemistry is remarkable for sodium of 141, potassium 4.1, creatinine is 6, BUN is 125. Chest x-ray showed minimal atelectasis. There is no pneumothorax. ASSESSMENT: 1. Coronary artery disease, status post CABG. 2. Pneumonia, resolving. 3. Acute lower gastrointestinal bleed. The patient will be seen by GI consult. 4. Acute renal failure, on hemodialysis. DISCUSSION: The patient is somnolent, but has no focal signs. Most likely secondary to medications. Cardiovascular: The patient has coronary artery disease, requiring coronary artery bypass surgery. The patient has been stable. Pulmonary and Respiratory: The patient's pneumonia is improved. He has used BiPAP at night, will try to use as needed. We will also taper off and probably stop steroids because of GI bleed. Gastrointestinal and Dietary: The patient had lower gastrointestinal bleed. He has been on Protonix as well as heparin. We will probably have to hold on heparin. PLAN: 1. Taper off rapidly Solu-Medrol. 2. Use BiPAP as needed. 3. Reduce or stop heparin. TRANSINT:[id number] Voice Confirmation ID: [id number] DOCUMENT ID: [id number] PROGRESS NOTE [id number] MO QUAN AUGUSTINE K at 1815 CC: [id number] DICTATION DATE: 04/23/18 1424 WORK[employer] CONSULTANT: 04/23/18 1529 ADM IN [place] [id number] [place] [id number]
--- NOTE | ~2018-04-07 | PN ---
PATIENT:MO QUAN MEDICAL RECORD: [id number] LOCATION:[facility]0 ADMISSION DATE: 04/07/18 PROGRESS NOTE DATE OF SERVICE: 04/24/2018 SUBJECTIVE: This is an 88-year-old man who was admitted for chest pain, was noted to have coronary artery disease, another stent placed. The patient developed acute renal insufficiency injury. Dialysis line was placed and also was noted to have bibasilar infiltrates. The patient had acute respiratory failure with hypercapnia and hypoxemia. He has required the BiPAP and now, he had used BiPAP, but last few days has not used any BiPAP. The patient had a lower GI bleeding yesterday. He received 1 unit of blood. During the night, the patient's blood pressure dropped. He had the metabolic acidosis, was given 2 units of packed cells as well as serum bicarbonate 2 amps. The patient is awake and alert today, but depressed and not been aroused. The patient denies any shortness of breath. There is no chest pain. Attempts were made to dialyse yesterday, but this was short-lived because of hypotension. The patient feels very very weak. He has not eaten since yesterday morning. PHYSICAL EXAMINATION: GENERAL: Reveals an elderly man, appears to be weak, acutely ill. VITAL SIGNS: Temperature 98.4, heart rate of 90, respiratory rate of 24, blood pressure 145/75, saturation is 99%. SHEENT: Unremarkable. There is mild pallor. NECK: Supple. There is no adenopathy. There is no tenderness. There is no thyromegaly. Trachea is midline. PULMONARY: Clear. Symmetric. No chest wall tenderness. HEART: Shows no jugular venous distention. No murmur or gallops. ABDOMEN: Benign. There is no tenderness. There are no masses. There is no distention. EXTREMITIES: No clubbing, cyanosis, or edema. Right upper extremity as well as bilateral feet appear to be cooler. Pulses are very faint in both these areas, dorsalis pedis and also right radial. LABORATORY DATA: White count of 21,000, hemoglobin 8.9, platelet count is 154,000. Chemistry is remarkable for creatinine of 6.7, BUN is 130, carbon dioxide 15.4. ASSESSMENT: 1. Coronary artery disease status post coronary artery bypass graft surgery. 2. Acute kidney injury status post dialysis catheter. 3. Peripheral vascular disease. 4. Hypertension. 5. Dementia. 6. Anemia. 7. Metabolic acidosis. PLAN: 1. Continue bronchodilators and antibiotics. 2. BiPAP at night and as needed. 3. Monitor CBC. 4. Oral sodium bicarbonate or IV as needed. 5. Continue antibiotics. 6. Stop Solu-Medrol. PROGRESS NOTE [id number] MO QUAN TRANSINT:[id number] Voice Confirmation ID: [id number] DOCUMENT ID: [id number] AYAKA FARMER at 1019 CC: [id number] DICTATION DATE: 04/24/18 1843 STUDENT ACCOUNTS MANAGER: 04/25/18 0147 ADM IN [facility] [address] [place] [address]
--- NOTE | ~2018-04-07 | OP ---
PATIENT NAME: MO QUAN MEDICAL RECORD: [id number] :31 [facility] AD[facility]ION DATE:04/07/18 SURGEON: NIKOLAI CROOK MD DATE OF OPERATION: 04/07/2018 SURGEON: Nikolai Crook MD ANESTHESIA: General endotracheal, Kana Jeffries MD OPERATIONS PERFORMED: Coronary artery bypass; 1. Left internal thoracic to left anterior descending. 2. Reverse saphenous vein graft to the first diagonal. 3. Reverse saphenous vein graft to the obtuse marginal coronary artery. PREOPERATIVE DIAGNOSIS: Severe occlusive coronary artery disease with angina pectoris. POSTOPERATIVE DIAGNOSIS: Severe occlusive coronary artery disease with angina pectoris. INDICATION FOR OPERATION: Angina pectoris. FINDINGS OF THE OPERATION: The left internal thoracic was an excellent conduit for grafting. The left anterior descending, first diagonal, and obtuse marginal coronary arteries were severely and diffusely diseased but graftable with adequate caliber. The posterior descending was calcified throughout its course as was as the main right coronary artery. The posterior descending was not graftable. ESTIMATED BLOOD LOSS: Cell Saver was used. DESCRIPTION OF PROCEDURE: After informed consent, adequate preoperative medication, and evaluation, the patient was brought to the operating room and placed on the table in supine position. After induction of general endotracheal anesthesia and application of appropriate monitoring devices, the chest, neck, abdomen, and both legs were prepped and draped in sterile field utilizing Betadine scrub, alcohol, and Betadine solution. Betadine-impregnated drape was also used. Saphenous vein was harvested from the right thigh and prepared for reverse saphenous vein grafting. Leg was closed over drains utilizing 3-0 Vicryl and skin ike. Median sternotomy incision was made and dissection was carried down to the fascia. Hemostasis was maintained with electrocautery. The sternum was divided. Innominate vein was identified and protected. Left internal thoracic was taken down and prepared for grafting. The patient was given a calculated dose of heparin, cannulated in standard fashion utilizing one aortic and one 2-stage cannula in atrium and inferior vena cava. The patient was placed on cardiopulmonary bypass and cooled to 32 degrees centigrade. A crossclamp was placed just proximal to the aortic cannula and the patient was given cardioplegic solution through the aortic root. The patient was given cold induction and cold maintenance. The patient was given cold intermittent cardioplegic solution throughout the procedure through the grafts, through the root, or a combination of both. The first vessel to be grafted was the obtuse marginal. It was grafted end-to-side utilizing a running 7-0 Prolene suture. The graft was measured back to the aorta and proximal anastomosis was fashioned utilizing running 6-0 Prolene suture. OPERATIVE REPORT [id number] MO QUAN Next, the first diagonal was grafted end-to-side utilizing a running 7-0 Prolene suture. Graft was measured back to the aorta and a proximal anastomosis was fashioned utilizing running 6-0 Prolene suture. Next, left internal thoracic was brought through a hole in pericardium and sutured to left anterior descending end-to-side utilizing a running 8-0 Prolene suture. Pedicle was attached to epicardium with 6-0 Prolene suture. All maneuvers to remove trapped air were performed. The patient was given warm cardioplegic reperfusion and controlled reperfusion. The patient was rewarmed to 37 degrees centigrade. Two atrial and 2 ventricular pacing wires were placed on the heart and brought out through the epigastric area. The patient was weaned from cardiopulmonary bypass. After being stable off bypass, given calculated dose of protamine to reverse the heparin. Hemostasis was assured. A #40 right angle and a #36 chest tube were brought in through the epigastric area and placed in the mediastinum. A separate left Zacarias tube was placed in the left hemithorax and connected to bulb suction. Chest was again irrigated. Instrument count and sponge count were correct times 2. Chest was closed in layers utilizing #7 wire on the sternum, #2 Vicryl on the linea alba and the pectoralis fascia. Subcutaneous tissue was approximated with 3-0 Vicryl and skin was approximated with 3-0 subcuticular Vicryl. Sterile dressings were applied. The patient tolerated the procedure well and was transferred to the cardiovascular recovery in critical but stable condition. TRANSINT:[id number] Voice Confirmation ID: [id number] DOCUMENT ID: [id number] NIKOLAI CROOK MD at 1235 CC: [id number] DICTATION DATE: 04/07/18 1412 BOILER TENDERS SUPERVISOR: 04/07/18 1444 DIS IN 05/07/18 [place] [address]
[~2018-04-07 05:00] MED LIST changes: -ALBUTEROL2.5 MG/3 M UPD; -COLACE100 MG PO; -CORDARONE200 MG PO; -FLUTICASONE PRO16 GM NASAL; -MEGACE400 MG/10 PO; -MIRALAX17 GM PO; -MUCINEX600 MG PO; -MYLANTA / MAALO30 ML PO; -NEURONTIN 300300 MG PO; -PROTONIX I40 MG/VIAL IV; -PROTONIX40 MG PO; -SENOKOT-S TABLE1 TAB PO
[2018-04-07 07:34] LABS: PLT FUNCT.(P2Y12) PLAVIX 286 PRU (194-418)
[2018-04-07 13:47] LABS: HEMOGLOBIN 9.9 g/dL (13.5-17.5); MCH 31.3 pg (26.0-34.0); MCHC 34.1 g/dL (31.0-37.0); MEAN PLATELET VOLUME 9.5 fL (7.4-10.4); RBC 3.16 10x6/uL (4.20-6.10); RDW 14.3 % (11.5-14.5)
[2018-04-07 13:58] LABS: ANION GAP 13.2 mmol/L (8-16); CALCIUM 8.9 mg/dL (8.5-10.1); CARBON DIOXIDE 27.9 mmol/L (21.0-32.0); CREATININE - SERUM 2.1 mg/dL (0.6-1.3); POTASSIUM - SERUM 4.1 mmol/L (3.5-5.1)
[2018-04-07 14:01] LABS: MCV 91.8 fL (80.0-100.0); WBC 16.6 10x3/uL (4.8-10.8)
[2018-04-07 14:13] LABS: APTT 28.4 SECONDS (22.8-39.4); PROTIME 14.6 SECONDS (11.6-15.0)
[2018-04-07 14:14] LABS: INR 1.18 (0.85-1.17)
[2018-04-08] VITALS (95 sets, daily range): BP systolic 104–131; BP diastolic 54–557; BMI 27.4
[2018-04-08 06:40] LABS: HEMATOCRIT 30.2 % (42.0-54.0); HEMOGLOBIN 10.6 g/dL (13.5-17.5); MCH 32.5 pg (26.0-34.0); MCHC 35.1 g/dL (31.0-37.0); MCV 92.6 fL (80.0-100.0); MEAN PLATELET VOLUME 9.7 fL (7.4-10.4); RBC 3.26 10x6/uL (4.20-6.10); RDW 15.6 % (11.5-14.5); WBC 18.6 10x3/uL (4.8-10.8)
[2018-04-08 07:32] LABS: ALBUMIN 2.9 g/dL (3.4-5.0); ANION GAP 16.6 mmol/L (8-16); BILIRUBIN - TOTAL 0.94 mg/dL (0.2-1.3); CALCIUM 7.7 mg/dL (8.5-10.1); CREATININE - SERUM 2.6 mg/dL (0.6-1.3); POTASSIUM - SERUM 4.6 mmol/L (3.5-5.1); PROTEIN - SERUM 5.8 g/dL (6.4-8.2)
[2018-04-08 14:07] LABS: HEMATOCRIT 22.6 % (42.0-54.0); HEMOGLOBIN 7.7 g/dL (13.5-17.5)
[2018-04-09] VITALS (49 sets, daily range): BP systolic 107–150; BP diastolic 57–97
[2018-04-09 06:21] LABS: MCH 30.9 pg (26.0-34.0); MCHC 33.5 g/dL (31.0-37.0); MCV 92.4 fL (80.0-100.0); MEAN PLATELET VOLUME 10.5 fL (7.4-10.4); RBC 3.04 10x6/uL (4.20-6.10); RDW 16.3 % (11.5-14.5); WBC 15.3 10x3/uL (4.8-10.8)
[2018-04-09 06:24] LABS: HEMATOCRIT 28.1 % (42.0-54.0); HEMOGLOBIN 9.4 g/dL (13.5-17.5); PLATELET COUNT 96 10x3/uL (130-400)
[2018-04-09 06:54] LABS: ALBUMIN 3.9 g/dL (3.4-5.0); ANION GAP 16.8 mmol/L (8-16); BILIRUBIN - TOTAL 0.97 mg/dL (0.2-1.3); CALCIUM 8.4 mg/dL (8.5-10.1); CARBON DIOXIDE 28.4 mmol/L (21.0-32.0); CREATININE - SERUM 3.2 mg/dL (0.6-1.3); POTASSIUM - SERUM 4.2 mmol/L (3.5-5.1); PROTEIN - SERUM 5.9 g/dL (6.4-8.2)
[2018-04-09 07:04] LABS: PLATELET ESTIMATE DECREASED
[2018-04-10] VITALS (24 sets, daily range): BP systolic 103–145; BP diastolic 59–99
[2018-04-10 06:23] LABS: HEMATOCRIT 28.9 % (42.0-54.0); HEMOGLOBIN 9.7 g/dL (13.5-17.5); MCH 31.1 pg (26.0-34.0); MCHC 33.6 g/dL (31.0-37.0); MCV 92.6 fL (80.0-100.0); MEAN PLATELET VOLUME 10.5 fL (7.4-10.4); RBC 3.12 10x6/uL (4.20-6.10); RDW 15.9 % (11.5-14.5); WBC 17.3 10x3/uL (4.8-10.8)
[2018-04-10 06:45] LABS: ALBUMIN 3.6 g/dL (3.4-5.0); BILIRUBIN - TOTAL 0.79 mg/dL (0.2-1.3); CALCIUM 8.2 mg/dL (8.5-10.1); CARBON DIOXIDE 27.8 mmol/L (21.0-32.0); CREATININE - SERUM 3.8 mg/dL (0.6-1.3); POTASSIUM - SERUM 3.8 mmol/L (3.5-5.1); PROTEIN - SERUM 6.1 g/dL (6.4-8.2)
[2018-04-11] VITALS (24 sets, daily range): BP systolic 97–159; BP diastolic 60–99
[2018-04-11 06:14] LABS: HEMATOCRIT 28.2 % (42.0-54.0); HEMOGLOBIN 9.4 g/dL (13.5-17.5); MCH 30.8 pg (26.0-34.0); MCHC 33.3 g/dL (31.0-37.0); MCV 92.5 fL (80.0-100.0); MEAN PLATELET VOLUME 10.2 fL (7.4-10.4); RBC 3.05 10x6/uL (4.20-6.10); RDW 15.4 % (11.5-14.5); WBC 14.1 10x3/uL (4.8-10.8)
[2018-04-11 06:48] LABS: ALBUMIN 3.2 g/dL (3.4-5.0); ANION GAP 14.4 mmol/L (8-16); BILIRUBIN - TOTAL 0.83 mg/dL (0.2-1.3); CARBON DIOXIDE 27.2 mmol/L (21.0-32.0); CREATININE - SERUM 3.9 mg/dL (0.6-1.3); POTASSIUM - SERUM 3.6 mmol/L (3.5-5.1); PROTEIN - SERUM 5.8 g/dL (6.4-8.2)
[2018-04-11 14:03] LABS: APPEARANCE HAZY (CLEAR); BILIRUBIN NEGATIVE (NEGATIVE); COLOR YELLOW (YELLOW); GLUCOSE NEGATIVE (NEGATIVE); KETONE NEGATIVE (NEGATIVE); NITRITE NEGATIVE (NEGATIVE); PROTEIN 1+ mg/dL (NEGATIVE); UROBILINOGEN NORMAL (NORMAL)
[2018-04-11 14:19] LABS: AMORPHOUS SEDIMENT <1+ /lpf (NONE SEEN); BACTERIA FEW /hpf (NONE SEEN); EPITHELIAL CELLS OCC /hpf (0-5); GRANULAR CAST 0-5 /lpf (NONE SEEN); HYALINE CAST OCC /lpf (NONE SEEN); WHITE CELLS - URINE 0-5 /hpf (0-5)
[2018-04-12] VITALS (25 sets, daily range): BP systolic 99–163; BP diastolic 38–94
[2018-04-12 06:35] LABS: HEMATOCRIT 28.2 % (42.0-54.0); HEMOGLOBIN 9.5 g/dL (13.5-17.5); MCH 31.4 pg (26.0-34.0); MCHC 33.7 g/dL (31.0-37.0); MCV 93.1 fL (80.0-100.0); MEAN PLATELET VOLUME 10.4 fL (7.4-10.4); RBC 3.03 10x6/uL (4.20-6.10); RDW 15.4 % (11.5-14.5); WBC 15.1 10x3/uL (4.8-10.8)
[2018-04-12 07:37] LABS: ALBUMIN 2.8 g/dL (3.4-5.0); BILIRUBIN - TOTAL 0.99 mg/dL (0.2-1.3); CALCIUM 7.7 mg/dL (8.5-10.1); CARBON DIOXIDE 27.7 mmol/L (21.0-32.0); CREATININE - SERUM 3.9 mg/dL (0.6-1.3); POTASSIUM - SERUM 3.7 mmol/L (3.5-5.1); PROTEIN - SERUM 5.7 g/dL (6.4-8.2)
[2018-04-13] VITALS (25 sets, daily range): BP systolic 93–145; BP diastolic 47–78
[2018-04-13 06:21] LABS: HEMATOCRIT 27.6 % (42.0-54.0); HEMOGLOBIN 9.3 g/dL (13.5-17.5); MCH 31.3 pg (26.0-34.0); MCHC 33.7 g/dL (31.0-37.0); MCV 92.9 fL (80.0-100.0); MEAN PLATELET VOLUME 10.4 fL (7.4-10.4); RBC 2.97 10x6/uL (4.20-6.10); RDW 15.3 % (11.5-14.5); WBC 16.1 10x3/uL (4.8-10.8)
[2018-04-13 06:59] LABS: ALBUMIN 2.4 g/dL (3.4-5.0); ANION GAP 14.5 mmol/L (8-16); BILIRUBIN - TOTAL 1.1 mg/dL (0.2-1.3); CALCIUM 8.1 mg/dL (8.5-10.1); CREATININE - SERUM 4.2 mg/dL (0.6-1.3); POTASSIUM - SERUM 3.5 mmol/L (3.5-5.1); PROTEIN - SERUM 5.7 g/dL (6.4-8.2)
[2018-04-14] VITALS (25 sets, daily range): BP systolic 98–144; BP diastolic 57–81
[2018-04-14 06:11] LABS: BASOPHILS 0.1 % (0-2); EOSINOPHILS 0.2 % (0-7); HEMATOCRIT 28.6 % (42.0-54.0); HEMOGLOBIN 9.7 g/dL (13.5-17.5); IMMATURE GRANULOCYTES 3.6 % (0-5); LYMPHOCYTES 3.1 % (15-50); MCH 31.3 pg (26.0-34.0); MCHC 33.9 g/dL (31.0-37.0); MCV 92.3 fL (80.0-100.0); MEAN PLATELET VOLUME 10.3 fL (7.4-10.4); MONOCYTES 3.9 % (2-11); NEUTROPHILS 89.1 % (40-80); RDW 15.2 % (11.5-14.5); WBC 19.5 10x3/uL (4.8-10.8)
[2018-04-14 06:19] LABS: PLATELET COUNT 265 10x3/uL (130-400)
[2018-04-14 06:33] LABS: ALBUMIN 2.3 g/dL (3.4-5.0); ANION GAP 14.9 mmol/L (8-16); BILIRUBIN - TOTAL 0.98 mg/dL (0.2-1.3); CALCIUM 8.1 mg/dL (8.5-10.1); CARBON DIOXIDE 28.3 mmol/L (21.0-32.0); CREATININE - SERUM 4.3 mg/dL (0.6-1.3); MAGNESIUM - SERUM 3.1 mg/dL (1.8-2.4); PHOSPHOROUS 4.6 mg/dL (2.5-4.9); POTASSIUM - SERUM 3.2 mmol/L (3.5-5.1); PROTEIN - SERUM 5.9 g/dL (6.4-8.2)
[2018-04-14 12:29] LABS: APPEARANCE CLOUDY (CLEAR); BILIRUBIN NEGATIVE (NEGATIVE); COLOR YELLOW (YELLOW); GLUCOSE NEGATIVE (NEGATIVE); KETONE NEGATIVE (NEGATIVE); NITRITE NEGATIVE (NEGATIVE); PROTEIN TRACE mg/dL (NEGATIVE); SPECIFIC GRAVITY 1.015 (1.005-1.020); UROBILINOGEN NORMAL (NORMAL)
[2018-04-14 12:30] LABS: AMORPHOUS SEDIMENT >1+ /lpf (NONE SEEN); BACTERIA FEW /hpf (NONE SEEN); EPITHELIAL CELLS OCC /hpf (0-5); GRANULAR CAST 0-5 /lpf (NONE SEEN); HYALINE CAST RARE /lpf (NONE SEEN); MUCUS <1+ /lpf (NONE SEEN); RED CELLS - URINE 0-5 /hpf (0-5); WHITE CELLS - URINE OCC /hpf (0-5)
[2018-04-15] VITALS (24 sets, daily range): BP systolic 103–140; BP diastolic 54–83; Ht 167.6 cm; Wt 68.2 kg
[2018-04-15 06:17] LABS: ANION GAP 13.7 mmol/L (8-16); BILIRUBIN - TOTAL 0.93 mg/dL (0.2-1.3); CALCIUM 7.9 mg/dL (8.5-10.1); CARBON DIOXIDE 28.7 mmol/L (21.0-32.0); CREATININE - SERUM 4.2 mg/dL (0.6-1.3); POTASSIUM - SERUM 3.4 mmol/L (3.5-5.1); PROTEIN - SERUM 5.8 g/dL (6.4-8.2)
[2018-04-15 06:58] LABS: HEMOGLOBIN 9.1 g/dL (13.5-17.5); MCH 31.1 pg (26.0-34.0); MCHC 33.7 g/dL (31.0-37.0); MCV 92.2 fL (80.0-100.0); MEAN PLATELET VOLUME 10.6 fL (7.4-10.4); PLATELET COUNT 290 10x3/uL (130-400); RBC 2.93 10x6/uL (4.20-6.10); RDW 15.1 % (11.5-14.5); WBC 20.2 10x3/uL (4.8-10.8)
[2018-04-15 07:37] LABS: HYPOCHROMASIA 1+; LYMPHOCYTES 4 % (15-50); MONOCYTES 4 % (2-11); NEUTROPHILS 89 % (40-80); PLATELET ESTIMATE NORMAL
[2018-04-16] VITALS (24 sets, daily range): BP systolic 111–159; BP diastolic 59–91
[2018-04-16 06:28] LABS: BASOPHILS 0.2 % (0-2); EOSINOPHILS 0.1 % (0-7); HEMOGLOBIN 9.5 g/dL (13.5-17.5); IMMATURE GRANULOCYTES 2.9 % (0-5); LYMPHOCYTES 3.1 % (15-50); MCH 31.1 pg (26.0-34.0); MCHC 33.9 g/dL (31.0-37.0); MCV 91.8 fL (80.0-100.0); MEAN PLATELET VOLUME 10.4 fL (7.4-10.4); NEUTROPHILS 90.7 % (40-80); PLATELET COUNT 333 10x3/uL (130-400); RBC 3.05 10x6/uL (4.20-6.10); RDW 15.1 % (11.5-14.5); WBC 20.1 10x3/uL (4.8-10.8)
[2018-04-16 06:45] LABS: ANION GAP 15.5 mmol/L (8-16); BILIRUBIN - TOTAL 1.05 mg/dL (0.2-1.3); CARBON DIOXIDE 25.8 mmol/L (21.0-32.0); CREATININE - SERUM 4.4 mg/dL (0.6-1.3); POTASSIUM - SERUM 3.3 mmol/L (3.5-5.1); PROTEIN - SERUM 5.9 g/dL (6.4-8.2); VANCOMYCIN - RANDOM 14.7 ug/mL (10.0-20.0)
[2018-04-17] VITALS (17 sets, daily range): BP systolic 122–147; BP diastolic 62–97
[2018-04-17 06:24] LABS: BASOPHILS 0.1 % (0-2); EOSINOPHILS 0 % (0-7); HEMATOCRIT 28.1 % (42.0-54.0); HEMOGLOBIN 9.5 g/dL (13.5-17.5); IMMATURE GRANULOCYTES 2.5 % (0-5); MCHC 33.8 g/dL (31.0-37.0); MCV 91.8 fL (80.0-100.0); MEAN PLATELET VOLUME 10.5 fL (7.4-10.4); MONOCYTES 2.3 % (2-11); NEUTROPHILS 93.1 % (40-80); PLATELET COUNT 348 10x3/uL (130-400); RBC 3.06 10x6/uL (4.20-6.10)
[2018-04-17 06:45] LABS: ANION GAP 10.7 mmol/L (8-16); BILIRUBIN - TOTAL 0.77 mg/dL (0.2-1.3); CALCIUM 8.1 mg/dL (8.5-10.1); CARBON DIOXIDE 27.6 mmol/L (21.0-32.0); CREATININE - SERUM 4.5 mg/dL (0.6-1.3); MAGNESIUM - SERUM 3.2 mg/dL (1.8-2.4); PHOSPHOROUS 4.8 mg/dL (2.5-4.9); POTASSIUM - SERUM 3.3 mmol/L (3.5-5.1); VANCOMYCIN - RANDOM 21.5 ug/mL (10.0-20.0)
[2018-04-17 20:38] LABS: POTASSIUM - SERUM 3.3 mmol/L (3.5-5.1)
[2018-04-18] VITALS (24 sets, daily range): BP systolic 118–137; BP diastolic 63–81
[2018-04-18 06:33] LABS: BASOPHILS 0.1 % (0-2); EOSINOPHILS 0 % (0-7); HEMATOCRIT 28.1 % (42.0-54.0); HEMOGLOBIN 9.4 g/dL (13.5-17.5); IMMATURE GRANULOCYTES 2.1 % (0-5); LYMPHOCYTES 2.1 % (15-50); MCH 30.7 pg (26.0-34.0); MCHC 33.5 g/dL (31.0-37.0); MCV 91.8 fL (80.0-100.0); MEAN PLATELET VOLUME 10.4 fL (7.4-10.4); MONOCYTES 2.1 % (2-11); NEUTROPHILS 93.6 % (40-80); PLATELET COUNT 391 10x3/uL (130-400); RBC 3.06 10x6/uL (4.20-6.10)
[2018-04-18 06:54] LABS: ANION GAP 14.1 mmol/L (8-16); BILIRUBIN - TOTAL 0.57 mg/dL (0.2-1.3); CALCIUM 8.3 mg/dL (8.5-10.1); CARBON DIOXIDE 29.2 mmol/L (21.0-32.0); CREATININE - SERUM 4.9 mg/dL (0.6-1.3); POTASSIUM - SERUM 3.3 mmol/L (3.5-5.1); PROTEIN - SERUM 5.9 g/dL (6.4-8.2); VANCOMYCIN - RANDOM 16.2 ug/mL (10.0-20.0)
[2018-04-18 08:36] LABS: HEMATOCRIT 28.2 % (42.0-54.0); HEMOGLOBIN 9.5 g/dL (13.5-17.5); MCH 30.9 pg (26.0-34.0); MCHC 33.7 g/dL (31.0-37.0); MCV 91.9 fL (80.0-100.0); MEAN PLATELET VOLUME 10.4 fL (7.4-10.4); RBC 3.07 10x6/uL (4.20-6.10); WBC 33.6 10x3/uL (4.8-10.8)
[2018-04-19] VITALS (22 sets, daily range): BP systolic 102–135; BP diastolic 56–95
[2018-04-19 05:21] LABS: BASOPHILS 0.1 % (0-2); EOSINOPHILS 0 % (0-7); HEMATOCRIT 30.3 % (42.0-54.0); HEMOGLOBIN 10.2 g/dL (13.5-17.5); IMMATURE GRANULOCYTES 1.7 % (0-5); LYMPHOCYTES 1.6 % (15-50); MCHC 33.7 g/dL (31.0-37.0); MCV 92.1 fL (80.0-100.0); MEAN PLATELET VOLUME 10.6 fL (7.4-10.4); MONOCYTES 2.4 % (2-11); NEUTROPHILS 94.2 % (40-80); PLATELET COUNT 469 10x3/uL (130-400); RBC 3.29 10x6/uL (4.20-6.10); RDW 15.2 % (11.5-14.5); WBC 33.3 10x3/uL (4.8-10.8)
[2018-04-19 05:39] LABS: ALBUMIN 2.3 g/dL (3.4-5.0); ANION GAP 15.7 mmol/L (8-16); BILIRUBIN - TOTAL 0.57 mg/dL (0.2-1.3); CALCIUM 8.2 mg/dL (8.5-10.1); CARBON DIOXIDE 30.7 mmol/L (21.0-32.0); CREATININE - SERUM 5.1 mg/dL (0.6-1.3); MAGNESIUM - SERUM 3.1 mg/dL (1.8-2.4); PHOSPHOROUS 5.9 mg/dL (2.5-4.9); POTASSIUM - SERUM 3.4 mmol/L (3.5-5.1); PROTEIN - SERUM 6.2 g/dL (6.4-8.2); VANCOMYCIN - RANDOM 23.1 ug/mL (10.0-20.0)
[2018-04-20] VITALS (24 sets, daily range): BP systolic 85–126; BP diastolic 45–75
[2018-04-20 07:04] LABS: ALBUMIN 2.3 g/dL (3.4-5.0); ANION GAP 16.7 mmol/L (8-16); BILIRUBIN - TOTAL 0.57 mg/dL (0.2-1.3); CALCIUM 8.3 mg/dL (8.5-10.1); CARBON DIOXIDE 32.1 mmol/L (21.0-32.0); CREATININE - SERUM 5.7 mg/dL (0.6-1.3); MAGNESIUM - SERUM 3.1 mg/dL (1.8-2.4); PHOSPHOROUS 5.5 mg/dL (2.5-4.9); POTASSIUM - SERUM 3.8 mmol/L (3.5-5.1); VANCOMYCIN - RANDOM 20.1 ug/mL (10.0-20.0)
[2018-04-20 07:18] LABS: BASOPHILS 0.1 % (0-2); EOSINOPHILS 0 % (0-7); HEMATOCRIT 30.5 % (42.0-54.0); HEMOGLOBIN 10.1 g/dL (13.5-17.5); IMMATURE GRANULOCYTES 1.4 % (0-5); LYMPHOCYTES 4.3 % (15-50); MCH 30.9 pg (26.0-34.0); MCHC 33.1 g/dL (31.0-37.0); MCV 93.3 fL (80.0-100.0); MEAN PLATELET VOLUME 10.6 fL (7.4-10.4); MONOCYTES 1.3 % (2-11); NEUTROPHILS 92.9 % (40-80); PLATELET COUNT 448 10x3/uL (130-400); RBC 3.27 10x6/uL (4.20-6.10); RDW 15.2 % (11.5-14.5); WBC 25.1 10x3/uL (4.8-10.8)
[2018-04-21] VITALS (24 sets, daily range): BP systolic 90–141; BP diastolic 50–70
[2018-04-21 06:34] LABS: BASOPHILS 0.1 % (0-2); EOSINOPHILS 0 % (0-7); HEMOGLOBIN 10.7 g/dL (13.5-17.5); IMMATURE GRANULOCYTES 2.1 % (0-5); LYMPHOCYTES 3.2 % (15-50); MCH 30.5 pg (26.0-34.0); MCHC 32.4 g/dL (31.0-37.0); MEAN PLATELET VOLUME 10.6 fL (7.4-10.4); MONOCYTES 3.8 % (2-11); NEUTROPHILS 90.8 % (40-80); PLATELET COUNT 441 10x3/uL (130-400); RBC 3.51 10x6/uL (4.20-6.10); RDW 15.3 % (11.5-14.5); WBC 26.2 10x3/uL (4.8-10.8)
[2018-04-21 07:06] LABS: ALBUMIN 2.5 g/dL (3.4-5.0); ANION GAP 15.2 mmol/L (8-16); BILIRUBIN - TOTAL 0.57 mg/dL (0.2-1.3); CALCIUM 8.4 mg/dL (8.5-10.1); CARBON DIOXIDE 30.5 mmol/L (21.0-32.0); CREATININE - SERUM 5.3 mg/dL (0.6-1.3); MAGNESIUM - SERUM 2.8 mg/dL (1.8-2.4); POTASSIUM - SERUM 3.7 mmol/L (3.5-5.1); PROTEIN - SERUM 6.2 g/dL (6.4-8.2)
[2018-04-22] VITALS (24 sets, daily range): BP systolic 107–139; BP diastolic 54–739
[2018-04-22 06:51] LABS: BASOPHILS 0.1 % (0-2); EOSINOPHILS 0 % (0-7); HEMATOCRIT 32.6 % (42.0-54.0); HEMOGLOBIN 10.4 g/dL (13.5-17.5); IMMATURE GRANULOCYTES 1.2 % (0-5); LYMPHOCYTES 1.4 % (15-50); MCH 30.4 pg (26.0-34.0); MCHC 31.9 g/dL (31.0-37.0); MCV 95.3 fL (80.0-100.0); MEAN PLATELET VOLUME 10.9 fL (7.4-10.4); MONOCYTES 2.4 % (2-11); NEUTROPHILS 94.9 % (40-80); PLATELET COUNT 417 10x3/uL (130-400); RBC 3.42 10x6/uL (4.20-6.10); RDW 15.2 % (11.5-14.5); WBC 27.3 10x3/uL (4.8-10.8)
[2018-04-22 06:56] LABS: ALBUMIN 2.4 g/dL (3.4-5.0); ANION GAP 15.5 mmol/L (8-16); BILIRUBIN - TOTAL 0.55 mg/dL (0.2-1.3); CALCIUM 7.8 mg/dL (8.5-10.1); CREATININE - SERUM 4.8 mg/dL (0.6-1.3); POTASSIUM - SERUM 4.5 mmol/L (3.5-5.1); PROTEIN - SERUM 6.1 g/dL (6.4-8.2)
[2018-04-23] VITALS (46 sets, daily range): BP systolic 66–141; BP diastolic 23–106
[2018-04-23 06:21] LABS: BASOPHILS 0.1 % (0-2); EOSINOPHILS 0.1 % (0-7); HEMATOCRIT 31.8 % (42.0-54.0); HEMOGLOBIN 10.9 g/dL (13.5-17.5); IMMATURE GRANULOCYTES 1.3 % (0-5); LYMPHOCYTES 5.1 % (15-50); MCH 32.2 pg (26.0-34.0); MCHC 34.3 g/dL (31.0-37.0); MCV 93.8 fL (80.0-100.0); MEAN PLATELET VOLUME 10.4 fL (7.4-10.4); MONOCYTES 1.2 % (2-11); NEUTROPHILS 92.2 % (40-80); PLATELET COUNT 407 10x3/uL (130-400); RBC 3.39 10x6/uL (4.20-6.10); WBC 29.1 10x3/uL (4.8-10.8)
[2018-04-23 06:27] LABS: ALBUMIN 2.4 g/dL (3.4-5.0); ANION GAP 13.8 mmol/L (8-16); BILIRUBIN - TOTAL 0.52 mg/dL (0.2-1.3); CALCIUM 8.1 mg/dL (8.5-10.1); CARBON DIOXIDE 31.3 mmol/L (21.0-32.0); MAGNESIUM - SERUM 2.7 mg/dL (1.8-2.4); POTASSIUM - SERUM 4.1 mmol/L (3.5-5.1)
[2018-04-23 10:24] LABS: CEA 13.6 ng/mL (0.0-4.7)
[2018-04-23 12:45] LABS: BASOPHILS 0.1 % (0-2); EOSINOPHILS 0.2 % (0-7); HEMATOCRIT 29.7 % (42.0-54.0); HEMOGLOBIN 9.7 g/dL (13.5-17.5); IMMATURE GRANULOCYTES 1.4 % (0-5); LYMPHOCYTES 5.1 % (15-50); MCH 30.7 pg (26.0-34.0); MCHC 32.7 g/dL (31.0-37.0); MEAN PLATELET VOLUME 10.5 fL (7.4-10.4); NEUTROPHILS 92.2 % (40-80); PLATELET COUNT 458 10x3/uL (130-400); RBC 3.16 10x6/uL (4.20-6.10); RDW 14.9 % (11.5-14.5); WBC 31.5 10x3/uL (4.8-10.8)
[2018-04-23 18:07] LABS: HEMATOCRIT 28.7 % (42.0-54.0); HEMOGLOBIN 9.4 g/dL (13.5-17.5); MCH 30.7 pg (26.0-34.0); MCHC 32.8 g/dL (31.0-37.0); MCV 93.8 fL (80.0-100.0); MEAN PLATELET VOLUME 10.5 fL (7.4-10.4); PLATELET COUNT 480 10x3/uL (130-400); RBC 3.06 10x6/uL (4.20-6.10); RDW 15.2 % (11.5-14.5); WBC 29.5 10x3/uL (4.8-10.8)
[2018-04-23 19:15] LABS: LYMPHOCYTES 1 % (15-50); MONOCYTES 3 % (2-11); NEUTROPHILS 96 % (40-80)
[2018-04-23 19:16] LABS: PLATELET ESTIMATE INCREASED
[2018-04-23 20:44] LABS: HEMATOCRIT 28.4 % (42.0-54.0); HEMOGLOBIN 9.2 g/dL (13.5-17.5)
[2018-04-24] VITALS (73 sets, daily range): BP systolic 97–155; BP diastolic 41–87
[2018-04-24 06:36] LABS: BASOPHILS 0.1 % (0-2); EOSINOPHILS 0 % (0-7); HEMATOCRIT 35.5 % (42.0-54.0); HEMOGLOBIN 12.2 g/dL (13.5-17.5); IMMATURE GRANULOCYTES 1.2 % (0-5); LYMPHOCYTES 6.7 % (15-50); MCH 30.7 pg (26.0-34.0); MCHC 34.4 g/dL (31.0-37.0); MCV 89.2 fL (80.0-100.0); MEAN PLATELET VOLUME 10.8 fL (7.4-10.4); MONOCYTES 1.5 % (2-11); NEUTROPHILS 90.5 % (40-80); PLATELET COUNT 333 10x3/uL (130-400); RBC 3.98 10x6/uL (4.20-6.10); RDW 15.2 % (11.5-14.5); WBC 25.5 10x3/uL (4.8-10.8)
[2018-04-24 06:40] LABS: ALBUMIN 2.5 g/dL (3.4-5.0); ANION GAP 15.4 mmol/L (8-16); BILIRUBIN - TOTAL 0.72 mg/dL (0.2-1.3); CALCIUM 7.7 mg/dL (8.5-10.1); CARBON DIOXIDE 30.3 mmol/L (21.0-32.0); CREATININE - SERUM 6.7 mg/dL (0.6-1.3); POTASSIUM - SERUM 4.7 mmol/L (3.5-5.1); PROTEIN - SERUM 5.8 g/dL (6.4-8.2)
[2018-04-24 07:33] LABS: SPE - ALBUMIN 3.1 g/dL (2.9-4.4); SPE - ALPHA-1 GLOBULIN 0.3 g/dL (0.0-0.4); SPE - ALPHA-2 GLOBULIN 1.1 g/dL (0.4-1.0); SPE - BETA GLOBULIN 0.9 g/dL (0.7-1.3); SPE - GAMMA GLOBULIN 0.8 g/dL (0.4-1.8); SPE - M-SPIKE Not Observed g/dL (Not Observed); SPE - TOTAL PROTEIN 6.2 g/dL (6.0-8.5)
[2018-04-24 13:37] LABS: HEMATOCRIT 35.8 % (42.0-54.0); HEMOGLOBIN 12.3 g/dL (13.5-17.5); MCH 30.8 pg (26.0-34.0); MCHC 34.4 g/dL (31.0-37.0); MCV 89.7 fL (80.0-100.0); MEAN PLATELET VOLUME 11.1 fL (7.4-10.4); RBC 3.99 10x6/uL (4.20-6.10); RDW 15.4 % (11.5-14.5)
[2018-04-24 15:27] LABS: HEPARIN INDUCED PLATELET AB 1.196 OD (0.000-0.400)
[2018-04-24 18:16] LABS: HEMATOCRIT 26.3 % (42.0-54.0); HEMOGLOBIN 8.9 g/dL (13.5-17.5); MCH 30.3 pg (26.0-34.0); MCHC 33.8 g/dL (31.0-37.0); MCV 89.5 fL (80.0-100.0); MEAN PLATELET VOLUME 10.4 fL (7.4-10.4); RBC 2.94 10x6/uL (4.20-6.10); RDW 15.3 % (11.5-14.5)
[2018-04-25] VITALS (49 sets, daily range): BP systolic 113–155; BP diastolic 67–89
[2018-04-25 02:59] LABS: HEMATOCRIT 32.7 % (42.0-54.0); HEMOGLOBIN 11.3 g/dL (13.5-17.5); MCH 30.5 pg (26.0-34.0); MCHC 34.6 g/dL (31.0-37.0); MCV 88.1 fL (80.0-100.0); MEAN PLATELET VOLUME 10.4 fL (7.4-10.4); RBC 3.71 10x6/uL (4.20-6.10); RDW 15.2 % (11.5-14.5); WBC 20.9 10x3/uL (4.8-10.8)
[2018-04-25 05:59] LABS: BASOPHILS 0.1 % (0-2); EOSINOPHILS 0.5 % (0-7); HEMATOCRIT 33.7 % (42.0-54.0); HEMOGLOBIN 11.5 g/dL (13.5-17.5); IMMATURE GRANULOCYTES 1.6 % (0-5); LYMPHOCYTES 3.1 % (15-50); MCH 30.2 pg (26.0-34.0); MCHC 34.1 g/dL (31.0-37.0); MCV 88.5 fL (80.0-100.0); MONOCYTES 4.5 % (2-11); NEUTROPHILS 90.2 % (40-80); PLATELET COUNT 193 10x3/uL (130-400); RBC 3.81 10x6/uL (4.20-6.10); RDW 15.5 % (11.5-14.5); WBC 18.3 10x3/uL (4.8-10.8)
[2018-04-25 06:49] LABS: ALBUMIN 3.8 g/dL (3.4-5.0); ANION GAP 11.6 mmol/L (8-16); BILIRUBIN - TOTAL 1.25 mg/dL (0.2-1.3); CALCIUM 8.1 mg/dL (8.5-10.1); CARBON DIOXIDE 30.1 mmol/L (21.0-32.0); CREATININE - SERUM 3.5 mg/dL (0.6-1.3); MAGNESIUM - SERUM 2.3 mg/dL (1.8-2.4); POTASSIUM - SERUM 3.7 mmol/L (3.5-5.1); PROTEIN - SERUM 6.2 g/dL (6.4-8.2)
[2018-04-25 11:37] LABS: HEMATOCRIT 34.2 % (42.0-54.0); HEMOGLOBIN 11.8 g/dL (13.5-17.5); MCH 30.7 pg (26.0-34.0); MCHC 34.5 g/dL (31.0-37.0); MCV 89.1 fL (80.0-100.0); MEAN PLATELET VOLUME 10.6 fL (7.4-10.4); RBC 3.84 10x6/uL (4.20-6.10); RDW 15.7 % (11.5-14.5)
[2018-04-25 17:48] LABS: HEMATOCRIT 35.1 % (42.0-54.0); HEMOGLOBIN 12.1 g/dL (13.5-17.5); MCH 30.5 pg (26.0-34.0); MCHC 34.5 g/dL (31.0-37.0); MCV 88.4 fL (80.0-100.0); MEAN PLATELET VOLUME 10.1 fL (7.4-10.4); RBC 3.97 10x6/uL (4.20-6.10); RDW 15.5 % (11.5-14.5); WBC 20.8 10x3/uL (4.8-10.8)
[2018-04-26] VITALS (43 sets, daily range): BP systolic 100–148; BP diastolic 63–88
[2018-04-26 00:10] LABS: HEMATOCRIT 35.8 % (42.0-54.0); HEMOGLOBIN 12.2 g/dL (13.5-17.5); MCH 30.2 pg (26.0-34.0); MCHC 34.1 g/dL (31.0-37.0); MCV 88.6 fL (80.0-100.0); MEAN PLATELET VOLUME 10.2 fL (7.4-10.4); RBC 4.04 10x6/uL (4.20-6.10); RDW 15.1 % (11.5-14.5); WBC 18.7 10x3/uL (4.8-10.8)
[2018-04-26 06:15] LABS: BASOPHILS 0.1 % (0-2); EOSINOPHILS 0.4 % (0-7); HEMATOCRIT 35.8 % (42.0-54.0); HEMOGLOBIN 12.3 g/dL (13.5-17.5); IMMATURE GRANULOCYTES 0.9 % (0-5); LYMPHOCYTES 2.4 % (15-50); MCH 30.3 pg (26.0-34.0); MCHC 34.4 g/dL (31.0-37.0); MCV 88.2 fL (80.0-100.0); MONOCYTES 5.4 % (2-11); NEUTROPHILS 90.8 % (40-80); PLATELET COUNT 201 10x3/uL (130-400); RBC 4.06 10x6/uL (4.20-6.10); RDW 14.9 % (11.5-14.5); WBC 19.9 10x3/uL (4.8-10.8)
[2018-04-26 06:34] LABS: ALBUMIN 3.1 g/dL (3.4-5.0); ANION GAP 10.7 mmol/L (8-16); BILIRUBIN - TOTAL 0.71 mg/dL (0.2-1.3); CALCIUM 7.8 mg/dL (8.5-10.1); CARBON DIOXIDE 29.8 mmol/L (21.0-32.0); CREATININE - SERUM 3.3 mg/dL (0.6-1.3); MAGNESIUM - SERUM 2.2 mg/dL (1.8-2.4); POTASSIUM - SERUM 3.5 mmol/L (3.5-5.1); PROTEIN - SERUM 5.7 g/dL (6.4-8.2); VANCOMYCIN - RANDOM 16.6 ug/mL (10.0-20.0)
[2018-04-26 13:46] LABS: HEMOGLOBIN 11.9 g/dL (13.5-17.5)
[2018-04-26 22:29] LABS: HEMOGLOBIN 11.3 g/dL (13.5-17.5)
[2018-04-27] VITALS (38 sets, daily range): BP systolic 87–146; BP diastolic 51–91
[2018-04-27 05:40] LABS: BASOPHILS 0.1 % (0-2); EOSINOPHILS 0.9 % (0-7); HEMATOCRIT 31.4 % (42.0-54.0); HEMOGLOBIN 10.8 g/dL (13.5-17.5); IMMATURE GRANULOCYTES 0.9 % (0-5); LYMPHOCYTES 3.5 % (15-50); MCH 30.3 pg (26.0-34.0); MCHC 34.4 g/dL (31.0-37.0); MCV 88.2 fL (80.0-100.0); MEAN PLATELET VOLUME 10.6 fL (7.4-10.4); MONOCYTES 5.5 % (2-11); NEUTROPHILS 89.1 % (40-80); PLATELET COUNT 216 10x3/uL (130-400); RBC 3.56 10x6/uL (4.20-6.10); RDW 14.4 % (11.5-14.5); WBC 22.1 10x3/uL (4.8-10.8)
[2018-04-27 06:02] LABS: ALBUMIN 2.6 g/dL (3.4-5.0); ANION GAP 13.6 mmol/L (8-16); BILIRUBIN - TOTAL 0.47 mg/dL (0.2-1.3); CALCIUM 7.4 mg/dL (8.5-10.1); CARBON DIOXIDE 26.6 mmol/L (21.0-32.0); POTASSIUM - SERUM 3.2 mmol/L (3.5-5.1); PROTEIN - SERUM 5.3 g/dL (6.4-8.2); VANCOMYCIN - RANDOM 16.9 ug/mL (10.0-20.0)
[2018-04-27 14:47] LABS: HEMATOCRIT 29.7 % (42.0-54.0); HEMOGLOBIN 10.1 g/dL (13.5-17.5)
[2018-04-27 18:08] LABS: UPE - ALPHA 1 GLOBULIN 7.5 % (NOT ESTAB.); UPE - ALPHA 2 GLOBULIN 24.7 % (NOT ESTAB.); UPE - BETA GLOBULIN 32.2 % (NOT ESTAB.); UPE - GAMMA GLOBULIN 19.1 % (NOT ESTAB.)
[2018-04-27 22:47] LABS: HEMOGLOBIN 8.1 g/dL (13.5-17.5)
[2018-04-27 22:50] LABS: HEMATOCRIT 23.7 % (42.0-54.0)
[2018-04-28] VITALS (33 sets, daily range): BP systolic 108–153; BP diastolic 36–81
[2018-04-28 05:23] LABS: BASOPHILS 0.1 % (0-2); EOSINOPHILS 1.9 % (0-7); HEMATOCRIT 22.3 % (42.0-54.0); HEMOGLOBIN 7.8 g/dL (13.5-17.5); IMMATURE GRANULOCYTES 0.9 % (0-5); LYMPHOCYTES 7.2 % (15-50); MCH 30.6 pg (26.0-34.0); MCV 87.5 fL (80.0-100.0); MONOCYTES 4.9 % (2-11); PLATELET COUNT 195 10x3/uL (130-400); RDW 14.3 % (11.5-14.5)
[2018-04-28 05:31] LABS: RBC 2.55 10x6/uL (4.20-6.10); WBC 11.3 10x3/uL (4.8-10.8)
[2018-04-28 05:58] LABS: ANION GAP 11.7 mmol/L (8-16); BILIRUBIN - TOTAL 0.67 mg/dL (0.2-1.3); CALCIUM 7.5 mg/dL (8.5-10.1); CARBON DIOXIDE 28.5 mmol/L (21.0-32.0); CREATININE - SERUM 3.5 mg/dL (0.6-1.3); POTASSIUM - SERUM 3.2 mmol/L (3.5-5.1); PROTEIN - SERUM 5.4 g/dL (6.4-8.2); VANCOMYCIN - RANDOM 22.4 ug/mL (10.0-20.0)
[2018-04-28 06:05] LABS: ALBUMIN 3.4 g/dL (3.4-5.0)
[2018-04-28 13:59] LABS: HEMATOCRIT 29.1 % (42.0-54.0); HEMOGLOBIN 10.1 g/dL (13.5-17.5)
[2018-04-28 22:27] LABS: HEMATOCRIT 29.7 % (42.0-54.0); HEMOGLOBIN 10.3 g/dL (13.5-17.5)
[2018-04-29] VITALS (24 sets, daily range): BP systolic 118–161; BP diastolic 36–95
[2018-04-29 06:22] LABS: BASOPHILS 0.1 % (0-2); EOSINOPHILS 1.5 % (0-7); HEMATOCRIT 30.3 % (42.0-54.0); HEMOGLOBIN 10.5 g/dL (13.5-17.5); IMMATURE GRANULOCYTES 0.7 % (0-5); LYMPHOCYTES 7.5 % (15-50); MCH 30.2 pg (26.0-34.0); MCHC 34.7 g/dL (31.0-37.0); MCV 87.1 fL (80.0-100.0); MEAN PLATELET VOLUME 9.9 fL (7.4-10.4); MONOCYTES 3.8 % (2-11); NEUTROPHILS 86.4 % (40-80); PLATELET COUNT 210 10x3/uL (130-400); RDW 14.9 % (11.5-14.5); WBC 13.7 10x3/uL (4.8-10.8)
[2018-04-29 06:35] LABS: ANION GAP 11.1 mmol/L (8-16); BILIRUBIN - TOTAL 0.62 mg/dL (0.2-1.3); CALCIUM 7.6 mg/dL (8.5-10.1); CARBON DIOXIDE 27.4 mmol/L (21.0-32.0); POTASSIUM - SERUM 3.5 mmol/L (3.5-5.1); PROTEIN - SERUM 5.5 g/dL (6.4-8.2); VANCOMYCIN - RANDOM 19.3 ug/mL (10.0-20.0)
[2018-04-29 07:10] LABS: RBC 3.48 10x6/uL (4.20-6.10)
[2018-04-29 14:22] LABS: HEMATOCRIT 31.7 % (42.0-54.0)
[2018-04-29 23:03] LABS: HEMATOCRIT 31.3 % (42.0-54.0); HEMOGLOBIN 10.8 g/dL (13.5-17.5)
[2018-04-30] VITALS (34 sets, daily range): BP systolic 95–164; BP diastolic 57–98
[2018-04-30 06:35] LABS: BASOPHILS 0.2 % (0-2); EOSINOPHILS 2.2 % (0-7); HEMATOCRIT 32.3 % (42.0-54.0); HEMOGLOBIN 11.1 g/dL (13.5-17.5); IMMATURE GRANULOCYTES 0.8 % (0-5); LYMPHOCYTES 9.1 % (15-50); MCH 30.2 pg (26.0-34.0); MCHC 34.4 g/dL (31.0-37.0); MEAN PLATELET VOLUME 9.9 fL (7.4-10.4); MONOCYTES 5.4 % (2-11); NEUTROPHILS 82.3 % (40-80); PLATELET COUNT 204 10x3/uL (130-400); RBC 3.67 10x6/uL (4.20-6.10); RDW 14.8 % (11.5-14.5); WBC 11.9 10x3/uL (4.8-10.8)
[2018-04-30 06:48] LABS: ALBUMIN 2.9 g/dL (3.4-5.0); ANION GAP 13.9 mmol/L (8-16); BILIRUBIN - TOTAL 0.48 mg/dL (0.2-1.3); CALCIUM 7.7 mg/dL (8.5-10.1); CARBON DIOXIDE 25.9 mmol/L (21.0-32.0); CREATININE - SERUM 3.5 mg/dL (0.6-1.3); POTASSIUM - SERUM 3.8 mmol/L (3.5-5.1); PROTEIN - SERUM 5.6 g/dL (6.4-8.2); VANCOMYCIN - RANDOM 14.9 ug/mL (10.0-20.0)
[2018-04-30 14:18] LABS: HEMATOCRIT 33.9 % (42.0-54.0); HEMOGLOBIN 11.6 g/dL (13.5-17.5)
[2018-04-30 23:50] LABS: HEMATOCRIT 31.6 % (42.0-54.0); HEMOGLOBIN 10.9 g/dL (13.5-17.5)
[2018-05-01] VITALS (61 sets, daily range): BP systolic 75–148; BP diastolic 52–94
[2018-05-01 06:10] LABS: ANION GAP 15.5 mmol/L (8-16); CALCIUM 7.8 mg/dL (8.5-10.1); CARBON DIOXIDE 23.4 mmol/L (21.0-32.0); CREATININE - SERUM 3.8 mg/dL (0.6-1.3); POTASSIUM - SERUM 3.9 mmol/L (3.5-5.1)
[2018-05-01 07:32] LABS: HEMATOCRIT 32.4 % (42.0-54.0); HEMOGLOBIN 11.1 g/dL (13.5-17.5); MCH 30.3 pg (26.0-34.0); MCHC 34.3 g/dL (31.0-37.0); MCV 88.5 fL (80.0-100.0); MEAN PLATELET VOLUME 10.1 fL (7.4-10.4); RBC 3.66 10x6/uL (4.20-6.10)
[2018-05-02] VITALS (24 sets, daily range): BP systolic 94–142; BP diastolic 54–83
[2018-05-02 08:25] LABS: BASOPHILS 0.2 % (0-2); EOSINOPHILS 1.8 % (0-7); HEMOGLOBIN 11.3 g/dL (13.5-17.5); IMMATURE GRANULOCYTES 0.6 % (0-5); LYMPHOCYTES 13.3 % (15-50); MCH 30.8 pg (26.0-34.0); MCHC 34.2 g/dL (31.0-37.0); MCV 89.9 fL (80.0-100.0); MEAN PLATELET VOLUME 9.8 fL (7.4-10.4); MONOCYTES 5.8 % (2-11); NEUTROPHILS 78.3 % (40-80); RBC 3.67 10x6/uL (4.20-6.10); RDW 15.2 % (11.5-14.5); WBC 12.3 10x3/uL (4.8-10.8)
[2018-05-02 08:30] LABS: PLATELET COUNT 161 10x3/uL (130-400)
[2018-05-03] VITALS (19 sets, daily range): BP systolic 120–153; BP diastolic 59–79
[2018-05-03 05:45] LABS: BASOPHILS 0.3 % (0-2); EOSINOPHILS 2.2 % (0-7); HEMATOCRIT 30.6 % (42.0-54.0); HEMOGLOBIN 10.4 g/dL (13.5-17.5); IMMATURE GRANULOCYTES 0.5 % (0-5); LYMPHOCYTES 14.3 % (15-50); MCH 30.4 pg (26.0-34.0); MCV 89.5 fL (80.0-100.0); NEUTROPHILS 77.7 % (40-80); PLATELET COUNT 176 10x3/uL (130-400); RBC 3.42 10x6/uL (4.20-6.10); RDW 15.2 % (11.5-14.5); WBC 10.1 10x3/uL (4.8-10.8)
[2018-05-03 06:15] LABS: ANION GAP 13.7 mmol/L (8-16); CALCIUM 8.1 mg/dL (8.5-10.1); CARBON DIOXIDE 25.1 mmol/L (21.0-32.0); POTASSIUM - SERUM 3.8 mmol/L (3.5-5.1); VANCOMYCIN - RANDOM 25.5 ug/mL (10.0-20.0)
[2018-05-04] VITALS (25 sets, daily range): BP systolic 95–143; BP diastolic 53–75
[2018-05-04 06:01] LABS: BASOPHILS 0.2 % (0-2); EOSINOPHILS 2.2 % (0-7); HEMATOCRIT 27.6 % (42.0-54.0); HEMOGLOBIN 9.5 g/dL (13.5-17.5); IMMATURE GRANULOCYTES 0.4 % (0-5); LYMPHOCYTES 14.8 % (15-50); MCH 30.8 pg (26.0-34.0); MCHC 34.4 g/dL (31.0-37.0); MCV 89.6 fL (80.0-100.0); MEAN PLATELET VOLUME 9.6 fL (7.4-10.4); NEUTROPHILS 74.4 % (40-80); PLATELET COUNT 167 10x3/uL (130-400); RBC 3.08 10x6/uL (4.20-6.10); RDW 15.2 % (11.5-14.5); WBC 9.1 10x3/uL (4.8-10.8)
[2018-05-04 06:14] LABS: CALCIUM 7.9 mg/dL (8.5-10.1); CARBON DIOXIDE 24.4 mmol/L (21.0-32.0); CREATININE - SERUM 4.3 mg/dL (0.6-1.3); VANCOMYCIN - RANDOM 20.8 ug/mL (10.0-20.0)
[2018-05-04 06:15] LABS: POTASSIUM - SERUM 4.4 mmol/L (3.5-5.1)
[2018-05-05] VITALS (18 sets, daily range): BP systolic 98–140; BP diastolic 47–81
[2018-05-05 06:05] LABS: BASOPHILS 0.2 % (0-2); EOSINOPHILS 2.4 % (0-7); HEMATOCRIT 26.4 % (42.0-54.0); HEMOGLOBIN 8.9 g/dL (13.5-17.5); IMMATURE GRANULOCYTES 0.5 % (0-5); LYMPHOCYTES 14.5 % (15-50); MCH 30.4 pg (26.0-34.0); MCHC 33.7 g/dL (31.0-37.0); MCV 90.1 fL (80.0-100.0); MEAN PLATELET VOLUME 9.7 fL (7.4-10.4); MONOCYTES 6.1 % (2-11); NEUTROPHILS 76.3 % (40-80); PLATELET COUNT 175 10x3/uL (130-400); RBC 2.93 10x6/uL (4.20-6.10); RDW 15.4 % (11.5-14.5); WBC 8.2 10x3/uL (4.8-10.8)
[2018-05-05 06:17] LABS: ANION GAP 16.2 mmol/L (8-16); CALCIUM 7.8 mg/dL (8.5-10.1); CARBON DIOXIDE 22.5 mmol/L (21.0-32.0); CREATININE - SERUM 4.4 mg/dL (0.6-1.3); POTASSIUM - SERUM 4.7 mmol/L (3.5-5.1)
[2018-05-06] VITALS (22 sets, daily range): BP systolic 97–142; BP diastolic 7–80
[2018-05-06 04:38] LABS: BASOPHILS 0.2 % (0-2); EOSINOPHILS 2.2 % (0-7); HEMATOCRIT 26.9 % (42.0-54.0); HEMOGLOBIN 9.1 g/dL (13.5-17.5); IMMATURE GRANULOCYTES 0.5 % (0-5); LYMPHOCYTES 12.6 % (15-50); MCH 30.5 pg (26.0-34.0); MCHC 33.8 g/dL (31.0-37.0); MCV 90.3 fL (80.0-100.0); MEAN PLATELET VOLUME 9.1 fL (7.4-10.4); MONOCYTES 4.5 % (2-11); PLATELET COUNT 184 10x3/uL (130-400); RBC 2.98 10x6/uL (4.20-6.10); RDW 15.5 % (11.5-14.5); WBC 9.2 10x3/uL (4.8-10.8)
[2018-05-06 05:07] LABS: ANION GAP 15.5 mmol/L (8-16); CALCIUM 7.9 mg/dL (8.5-10.1); CARBON DIOXIDE 21.2 mmol/L (21.0-32.0); CREATININE - SERUM 4.7 mg/dL (0.6-1.3); POTASSIUM - SERUM 4.7 mmol/L (3.5-5.1)
[2018-05-06 10:34] LABS: APTT 28.7 SECONDS (22.8-39.4); INR 1.1 (0.85-1.17); PROTIME 13.8 SECONDS (11.6-15.0)
[2018-05-07] VITALS (17 sets, daily range): BP systolic 100–142; BP diastolic 34–97
[2018-05-07 06:23] LABS: BASOPHILS 0.2 % (0-2); HEMATOCRIT 27.2 % (42.0-54.0); HEMOGLOBIN 8.9 g/dL (13.5-17.5); IMMATURE GRANULOCYTES 0.4 % (0-5); MCH 30.2 pg (26.0-34.0); MCHC 32.7 g/dL (31.0-37.0); MCV 92.2 fL (80.0-100.0); MEAN PLATELET VOLUME 9.6 fL (7.4-10.4); MONOCYTES 7.3 % (2-11); NEUTROPHILS 76.1 % (40-80); PLATELET COUNT 205 10x3/uL (130-400); RBC 2.95 10x6/uL (4.20-6.10); RDW 15.7 % (11.5-14.5); WBC 8.2 10x3/uL (4.8-10.8)
[2018-05-07 06:34] LABS: CREATININE - SERUM 4.1 mg/dL (0.6-1.3)
[2018-05-07] MEDS ORDERED: ALBUTEROL2.5 MG/3 M UPD (15:23)
[2018-05-07] MEDS ORDERED: CORDARONE200 MG PO (15:24)
[2018-05-07] MEDS ORDERED: NEURONTIN 300300 MG PO (15:25)
[2018-05-07] MEDS ORDERED: MUCINEX600 MG PO (15:26)
[2018-05-07] MEDS ORDERED: COLACE100 MG PO (15:29)
[2018-05-07] MEDS ORDERED: FLUTICASONE PRO16 GM NASAL (15:29)
[2018-05-07] MEDS ORDERED: MIRALAX17 GM PO (15:30)
[2018-05-07] MEDS ORDERED: MYLANTA / MAALO30 ML PO (15:30)
[2018-05-07] MEDS ORDERED: PROTONIX I40 MG/VIAL IV (15:30)
[2018-05-07] MEDS ORDERED: SENOKOT-S TABLE1 TAB PO (15:31)
[2018-05-07] MEDS ORDERED: MEGACE400 MG/10 PO (15:31)
== END 2018-05-07 17:33 | DRG 235 ==
LOC: D.CVICU 05:00 → D.SDCHOLD 05:00 → D.CVICU 10:14
PROVIDERS: Anesthesiology; Internal Medicine; Internal Medicine Cardiovascular Disease; Internal Medicine Gastroenterology; Internal Medicine Nephrology; Internal Medicine Pulmonary Disease; Thoracic Surgery (Cardiothoracic Vascular Surgery)
PROC: 021109W Bypass Coronary Artery, Two Arteries from Aorta with Autologous Venous Tissue, Open Approach (ICD-10-PCS; 2018-04-07)
PROC: 06BP0ZZ Excision of Right Saphenous Vein, Open Approach (ICD-10-PCS; 2018-04-07)
PROC: 5A1221Z Performance of Cardiac Output, Continuous (ICD-10-PCS; 2018-04-07)
PROC: B24BZZ4 Ultrasonography of Heart with Aorta, Transesophageal (ICD-10-PCS; 2018-04-07)
PROC: 02100ZC Bypass Coronary Artery, One Artery from Thoracic Artery, Open Approach (ICD-10-PCS; principal; 2018-04-07 07:30)
PROC: 5A09357 Assistance with Respiratory Ventilation, Less than 24 Consecutive Hours, Continuous Positive Airway Pressure (ICD-10-PCS; 2018-04-14)
PROC: 05HM33Z Insertion of Infusion Device into Right Internal Jugular Vein, Percutaneous Approach (ICD-10-PCS; 2018-04-19)
PROC: 05HM33Z Insertion of Infusion Device into Right Internal Jugular Vein, Percutaneous Approach (ICD-10-PCS; 2018-05-02)
PROC: 0JH63XZ Insertion of Tunneled Vascular Access Device into Chest Subcutaneous Tissue and Fascia, Percutaneous Approach (ICD-10-PCS; 2018-05-06)
PROC: 05HM33Z Insertion of Infusion Device into Right Internal Jugular Vein, Percutaneous Approach (ICD-10-PCS; 2018-05-06)
DX: I25.119 Atherosclerotic heart disease of native coronary artery with unspecified angina pectoris (principal); J18.9 Pneumonia, unspecified organism; J96.01 Acute respiratory failure with hypoxia; N17.0 Acute kidney failure with tubular necrosis; G93.41 Metabolic encephalopathy; J15.6 Pneumonia due to other Gram-negative bacteria; J96.02 Acute respiratory failure with hypercapnia; N18.4 Chronic kidney disease, stage 4 (severe); D62 Acute posthemorrhagic anemia; J90 Pleural effusion, not elsewhere classified; J98.11 Atelectasis; K92.2 Gastrointestinal hemorrhage, unspecified; J44.1 Chronic obstructive pulmonary disease with (acute) exacerbation; J44.0 Chronic obstructive pulmonary disease with (acute) lower respiratory infection; E87.2 Acidosis; G72.81 Critical illness myopathy; J80 Acute respiratory distress syndrome; J81.1 Chronic pulmonary edema; I12.9 Hypertensive chronic kidney disease with stage 1 through stage 4 chronic kidney disease, or unspecified chronic kidney disease; D63.1 Anemia in chronic kidney disease; F03.90 Unspecified dementia, unspecified severity, without behavioral disturbance, psychotic disturbance, mood disturbance, and anxiety; E78.5 Hyperlipidemia, unspecified; R06.00 Dyspnea, unspecified; F32.9 Major depressive disorder, single episode, unspecified; R53.81 Other malaise; N40.0 Benign prostatic hyperplasia without lower urinary tract symptoms; E87.6 Hypokalemia; I95.9 Hypotension, unspecified; I73.9 Peripheral vascular disease, unspecified; Y95 Nosocomial condition; J30.9 Allergic rhinitis, unspecified; I95.1 Orthostatic hypotension; I48.0 Paroxysmal atrial fibrillation

== ENCOUNTER 2018-05-07 17:25 | Inpatient (IN) | payer MEDICARE, BC ==
[~2018-05-07] VITALS: Ht 167.6 cm; Wt 62.4 kg
--- NOTE | ~2018-05-07 | RHP ---
PATIENT: MO QUAN MEDICAL RECORD: [id number] ACCOUNT: [id number] LOCATION:[facility] : 31 ADMISSION DATE: 05/07/18 REHABILITATION HISTORY AND PHYSICAL EXAMINATION POST ADMISSION PHYSICIAN EXAMINATION DATE OF ADMISSION: 05/07/2018 ADMITTING DIAGNOSIS: Critical illness myopathy. HISTORY OF PRESENT ILLNESS: The patient is an 88-year-old gentleman who is admitted for critical illness myopathy. He was admitted for coronary artery bypass grafting on 04/07/2018, has postop complications. He has history of chronic kidney disease with baseline creatinine of 2.6 and 2.8, coronary artery disease, hypertension, hyperlipidemia, osteoarthritis, depression, dementia and BPH. He had increasing shortness of breath. Chest x-ray was suggestive of pneumonia in both bases. Echocardiogram or transesophageal echo showed an EF of 60% with no other significant abnormalities. He has got a history of smoking, but he quit in 1962. Prior to his surgery, he had some shortness of breath for about 2 months prior to the discovery of his coronary artery disease. He has dyspnea with activity. He had positive for leg edema secondary to renal disease. He has had a bladder scan, which showed some high volumes after voiding attempt, so his cause of worsening recent renal failure is attributed to urinary obstruction at the level of the prostate. The patient was noted with worsening sepsis on 04/08/2018 with a white count of 33,000, BUN up to 111, creatinine of 4.8. He received 9 units of packed red blood cells during his stay. His renal function continued to worsen. He has been started on hemodialysis. He has got hemodialysis catheter placed on 05/06/2018. He got proximal weakness noted since his prolonged hospitalization. Currently on telemetry, has a Chin catheterization at this time. He was independent with mobility and ADLs prior to this hospitalization and is currently minimum to max assist with ADLs and moderate to total assist with his mobility. His barriers to discharge home is he will need outpatient hemodialysis set up, possibly home O2 set up, debility and weakness with self-care deficit. He will need DME equipment set up. The patient and his plan for him to return home post to his prior level of functioning if possible. COMORBIDITIES: Include oropharyngeal dysphagia, coronary artery disease, acute renal failure, hypertension, hyperlipidemia, anemia of chronic disease, atherosclerotic heart disease, dementia, pneumonia, GI hemorrhage, delirium, hypoxic respiratory failure, leukocytosis, acute mental status changes, metabolic encephalopathy, delirium, renal failure, arrhythmia, osteoarthritis, BPH, depression, dementia, history of tobacco use, which is remotely, status post coronary artery bypass grafting. PAST MEDICAL HISTORY: Significant for allergy, sinus problems, hypertension, depression, dementia, prostate problems and bruising. PAST SURGICAL HISTORY: Includes a urological surgery and nasal surgery. ALLERGIES: No known drug allergies. CURRENT MEDICATIONS: Include Zoloft 100 mg daily, Mylanta 30 cc daily, Proscar 5 mg daily, amiodarone 200 mg daily, Senokot 2 tabs at bedtime, MiraLax 17 grams in 8 ounces of water daily, Protonix 40 mg every 12 hours IV, I will probably HISTORY AND PHYSICAL [id number] MO QUAN change this over to p.o., Megace 400 mg b.i.d., Mucinex 600 mg b.i.d., Neurontin 600 mg b.i.d., Flonase nasal spray daily, Aricept 10 mg at bedtime, Colace 100 mg b.i.d., Ventolin 2.5 mg q.i.d. HABITS: No alcohol or tobacco use at this time. FAMILY HISTORY: Noncontributory. SOCIAL HISTORY: The patient hopes to return back home and get back to his prior level of functioning. REVIEW OF SYSTEMS: GENERAL: Does complain of weakness and fatigue. HEENT: Denies cold, cough, or congestion. CARDIOVASCULAR: Denies chest pain. PHYSICAL EXAMINATION: VITAL SIGNS: Stable, afebrile. GENERAL: A thin gentleman in no acute distress upon exam. HEENT: Normocephalic and atraumatic. Mucosa moist. NECK: Supple. No lymphadenopathy. LUNGS: Clear at this time. HEART: Has a regular rate and rhythm. ABDOMEN: Benign. EXTREMITIES: No clubbing, cyanosis or edema. NEUROLOGIC: Does have noted weakness. LABORATORY DATA: White count is 8.1, H&H 8.1 and 23.7 and platelet count is 222. Sodium is 136, potassium 4.3, BUN and creatinine of 78 and 4.7 and blood sugar is noted to be 105. ASSESSMENT: This is an 88-year-old gentleman admitted to the rehab with a working diagnosis of critical illness myopathy complicated by renal failure. The patient has potential to make improvement. We instituted the following multidisciplinary therapies, include but not limited to physical, occupational, respiratory, speech, nutritional services, prosthetics and orthotics. Given his complex medical condition and risk for more complications, rehabilitation services cannot be provided at a low level of care such as skilled nurse facility. PLAN: 1. Admit to [facility] rehab for intensive inpatient therapy to include the following disciplines: A. Physical therapy to improve gait, all transfer skills and bed mobility to a modified independent level. B. Occupational therapy to a modified independent level. C. Case management to assist with discharge planning and placement options. D. Nutrition to assist with nutritional needs. E. Rehabilitation nursing to assist in monitoring the patient's underlying medical conditions and to assist with any type of bowel or bladder management. 2. The patient's current medication and medical care will be continued. 3. Watch his H&H closely. 4. Appreciate renal seeing this patient and will let them address his low hemoglobin and hematocrit since he is undergoing hemodialysis, so we can watch his BUN and creatinine closely. I am going to follow him up in the a.m. HISTORY AND PHYSICAL [id number] MO QUAN TRANSINT:[id number] Voice Confirmation ID: [id number] DOCUMENT ID: [id number] DMITRI notes whether there has been none or any medical/functional change since admission: - No change since preadmission screen. DMITRI attests patient continues to be appropriate for IRF: - Continues to be appropriate. MO VILLEDA MD at 1733 CC: [id number] DICTATION DATE: 05/08/18830 MOTION STUDY ANALYST: 05/08/18 09 ADM IN [facility] [address] [place] [address]
[~2018-05-07 17:25] MED LIST changes: +ALBUTEROL2.5 MG/3 M UPD; +COLACE100 MG PO; +CORDARONE200 MG PO; +FLUTICASONE PRO16 GM NASAL; +MEGACE400 MG/10 PO; +MIRALAX17 GM PO; +MUCINEX600 MG PO; +MYLANTA / MAALO30 ML PO; +NEURONTIN 300300 MG PO; +PROTONIX I40 MG/VIAL IV; +SENOKOT-S TABLE1 TAB PO
[2018-05-07 19:00] VITALS: BP 136/75
[2018-05-07 22:58] VITALS: BP 136/75; BMI 25.2
[2018-05-08 01:41] VITALS: BP 122/59
[2018-05-08 06:01] LABS: HEMATOCRIT 23.7 % (42.0-54.0); HEMOGLOBIN 8.1 g/dL (13.5-17.5); LYMPHOCYTES 12.5 % (15-50); MCH 31.2 pg (26.0-34.0); MCHC 34.2 g/dL (31.0-37.0); MCV 91.2 fL (80.0-100.0); NEUTROPHILS 79.2 % (40-80); PLATELET COUNT 222 10x3/uL (130-400); RDW 15.2 % (11.5-14.5); WBC 8.1 10x3/uL (4.8-10.8)
[2018-05-08 06:33] LABS: ANION GAP 16.1 mmol/L (8-16); CALCIUM 8.2 mg/dL (8.5-10.1); CARBON DIOXIDE 23.2 mmol/L (21.0-32.0); CREATININE - SERUM 4.7 mg/dL (0.6-1.3); POTASSIUM - SERUM 4.3 mmol/L (3.5-5.1)
[2018-05-08 11:57] VITALS: BP 117/70
[2018-05-08 13:09] VITALS: BMI 25.1
[2018-05-08 18:00] VITALS: BP 111/57
[2018-05-09 00:20] VITALS: BP 137/79
[2018-05-09 06:05] VITALS: BP 132/74
[2018-05-09 11:22] VITALS: BP 138/81
[2018-05-09 18:32] VITALS: BP 111/57
[2018-05-10 01:59] VITALS: BP 117/64
[2018-05-10 06:35] VITALS: BP 134/73
[2018-05-10 14:26] VITALS: BP 104/62
[2018-05-10 15:52] VITALS: BP 180/107
[2018-05-11 00:44] VITALS: BP 139/77
[2018-05-11 05:57] VITALS: BP 111/68
[2018-05-11 06:36] LABS: ANION GAP 18.4 mmol/L (8-16); CARBON DIOXIDE 23.4 mmol/L (21.0-32.0); CREATININE - SERUM 4.3 mg/dL (0.6-1.3); POTASSIUM - SERUM 3.8 mmol/L (3.5-5.1)
[2018-05-11 06:57] LABS: BASOPHILS 0.3 % (0-2); EOSINOPHILS 1.9 % (0-7); HEMATOCRIT 24.9 % (42.0-54.0); HEMOGLOBIN 8.3 g/dL (13.5-17.5); IMMATURE GRANULOCYTES 0.9 % (0-5); LYMPHOCYTES 16.2 % (15-50); MCH 30.3 pg (26.0-34.0); MCHC 33.3 g/dL (31.0-37.0); MCV 90.9 fL (80.0-100.0); MEAN PLATELET VOLUME 9.5 fL (7.4-10.4); MONOCYTES 8.6 % (2-11); NEUTROPHILS 72.1 % (40-80); RBC 2.74 10x6/uL (4.20-6.10); RDW 15.4 % (11.5-14.5)
[2018-05-11 06:59] LABS: PLATELET COUNT 285 10x3/uL (130-400)
[2018-05-11 12:19] VITALS: BP 141/75
[2018-05-11 18:00] VITALS: BP 136/76
[2018-05-12 00:01] VITALS: BP 148/81
[2018-05-12 05:49] VITALS: BP 138/76
[2018-05-12 12:26] VITALS: BP 117/61
[2018-05-12 18:07] VITALS: BP 124/70
[2018-05-12 23:48] VITALS: BP 145/81
[2018-05-13 05:09] VITALS: BP 144/83
[2018-05-13 07:21] LABS: BASOPHILS 0.3 % (0-2); EOSINOPHILS 1.9 % (0-7); HEMATOCRIT 28.2 % (42.0-54.0); HEMOGLOBIN 9.5 g/dL (13.5-17.5); IMMATURE GRANULOCYTES 1.3 % (0-5); LYMPHOCYTES 14.2 % (15-50); MCH 30.3 pg (26.0-34.0); MCHC 33.7 g/dL (31.0-37.0); MCV 89.8 fL (80.0-100.0); MEAN PLATELET VOLUME 9.4 fL (7.4-10.4); MONOCYTES 8.6 % (2-11); NEUTROPHILS 73.7 % (40-80); PLATELET COUNT 295 10x3/uL (130-400); RBC 3.14 10x6/uL (4.20-6.10); RDW 15.7 % (11.5-14.5); WBC 7.5 10x3/uL (4.8-10.8)
[2018-05-13 07:36] LABS: ANION GAP 17.9 mmol/L (8-16); CALCIUM 7.9 mg/dL (8.5-10.1); CARBON DIOXIDE 21.7 mmol/L (21.0-32.0); CREATININE - SERUM 4.5 mg/dL (0.6-1.3); POTASSIUM - SERUM 3.6 mmol/L (3.5-5.1)
[2018-05-13 12:23] VITALS: BP 123/79
[2018-05-13 18:00] VITALS: BP 139/83
[2018-05-13 18:27] VITALS: BP 118/76
[2018-05-14] VITALS: BP 149/83
[2018-05-14 05:30] VITALS: BP 146/83
[2018-05-14 06:38] LABS: ANION GAP 20.4 mmol/L (8-16); CALCIUM 8.2 mg/dL (8.5-10.1); CARBON DIOXIDE 22.6 mmol/L (21.0-32.0); CREATININE - SERUM 4.6 mg/dL (0.6-1.3)
[2018-05-14 12:16] VITALS: BP 142/83
[2018-05-14 18:00] VITALS: BP 118/68
[2018-05-15 00:22] VITALS: BP 132/76
[2018-05-15 05:52] LABS: BASOPHILS 0.4 % (0-2); EOSINOPHILS 2.7 % (0-7); HEMATOCRIT 30.1 % (42.0-54.0); HEMOGLOBIN 10.1 g/dL (13.5-17.5); IMMATURE GRANULOCYTES 2.9 % (0-5); LYMPHOCYTES 16.3 % (15-50); MCH 30.2 pg (26.0-34.0); MCHC 33.6 g/dL (31.0-37.0); MCV 90.1 fL (80.0-100.0); MEAN PLATELET VOLUME 9.1 fL (7.4-10.4); MONOCYTES 8.8 % (2-11); NEUTROPHILS 68.9 % (40-80); PLATELET COUNT 290 10x3/uL (130-400); RBC 3.34 10x6/uL (4.20-6.10); RDW 15.3 % (11.5-14.5)
[2018-05-15 05:58] LABS: ANION GAP 17.2 mmol/L (8-16); CALCIUM 8.2 mg/dL (8.5-10.1); CARBON DIOXIDE 20.8 mmol/L (21.0-32.0); CREATININE - SERUM 4.6 mg/dL (0.6-1.3)
[2018-05-15 06:27] VITALS: BP 126/78
[2018-05-15 12:53] VITALS: BP 125/74
[2018-05-15 15:10] VITALS: Ht 167.6 cm; Wt 62.4 kg
[2018-05-16 00:18] VITALS: BP 117/62
[2018-05-16 05:55] VITALS: BP 137/80
[2018-05-16 12:11] VITALS: BP 132/67
[2018-05-16 13:29] VITALS: BP 123/71
[2018-05-17] VITALS: BP 154/65
[2018-05-17 00:01] VITALS: BP 123/71
[2018-05-17 06:02] VITALS: BP 121/62
[2018-05-17 06:30] LABS: ANION GAP 20.4 mmol/L (8-16); CALCIUM 8.5 mg/dL (8.5-10.1); CARBON DIOXIDE 19.4 mmol/L (21.0-32.0); CREATININE - SERUM 4.6 mg/dL (0.6-1.3); POTASSIUM - SERUM 3.8 mmol/L (3.5-5.1)
[2018-05-17 12:06] VITALS: BP 121/62
[2018-05-17 18:05] VITALS: BP 128/68
[2018-05-18 00:05] VITALS: BP 102/50
[2018-05-18 05:14] VITALS: BP 138/76
[2018-05-18 09:18] LABS: BASOPHILS 0.6 % (0-2); EOSINOPHILS 3.1 % (0-7); HEMATOCRIT 33.1 % (42.0-54.0); HEMOGLOBIN 10.9 g/dL (13.5-17.5); IMMATURE GRANULOCYTES 5.6 % (0-5); LYMPHOCYTES 18.4 % (15-50); MCH 30.2 pg (26.0-34.0); MCHC 32.9 g/dL (31.0-37.0); MCV 91.7 fL (80.0-100.0); MEAN PLATELET VOLUME 9.7 fL (7.4-10.4); MONOCYTES 6.3 % (2-11); RBC 3.61 10x6/uL (4.20-6.10); RDW 15.4 % (11.5-14.5)
[2018-05-18 09:23] LABS: PLATELET COUNT 389 10x3/uL (130-400)
[2018-05-18 09:40] LABS: ANION GAP 19.4 mmol/L (8-16); CARBON DIOXIDE 21.6 mmol/L (21.0-32.0); CREATININE - SERUM 4.6 mg/dL (0.6-1.3)
[2018-05-18 12:33] VITALS: BP 103/76
[2018-05-18 18:00] VITALS: BP 147/79
[2018-05-19 00:06] VITALS: BP 102/65
[2018-05-19 05:17] VITALS: BP 134/72
[2018-05-19 10:53] LABS: BASOPHILS 0.3 % (0-2); EOSINOPHILS 2.1 % (0-7); HEMOGLOBIN 10.7 g/dL (13.5-17.5); IMMATURE GRANULOCYTES 4.1 % (0-5); LYMPHOCYTES 11.1 % (15-50); MCH 30.6 pg (26.0-34.0); MCHC 33.4 g/dL (31.0-37.0); MCV 91.4 fL (80.0-100.0); MEAN PLATELET VOLUME 9.2 fL (7.4-10.4); MONOCYTES 6.9 % (2-11); NEUTROPHILS 75.5 % (40-80); PLATELET COUNT 332 10x3/uL (130-400); RDW 15.3 % (11.5-14.5); WBC 10.2 10x3/uL (4.8-10.8)
[2018-05-19 11:13] LABS: ANION GAP 16.6 mmol/L (8-16); CALCIUM 8.7 mg/dL (8.5-10.1); CARBON DIOXIDE 24.4 mmol/L (21.0-32.0); CREATININE - SERUM 4.6 mg/dL (0.6-1.3)
[2018-05-19 12:20] VITALS: BP 115/71
[2018-05-19 18:00] VITALS: BP 141/88
[2018-05-20 12:03] VITALS: BP 95/64
[2018-05-20 18:00] VITALS: BP 147/87
[2018-05-21 00:13] VITALS: BP 112/58
[2018-05-21 05:02] VITALS: BP 152/81
[2018-05-21 12:00] VITALS: BP 97/63
[2018-05-21 18:00] VITALS: BP 142/77
[2018-05-22 00:07] VITALS: BP 154/80
[2018-05-22 05:40] VITALS: BP 140/84
[2018-05-22 06:52] LABS: BASOPHILS 0.4 % (0-2); EOSINOPHILS 1.8 % (0-7); HEMATOCRIT 32.1 % (42.0-54.0); HEMOGLOBIN 10.9 g/dL (13.5-17.5); LYMPHOCYTES 10.2 % (15-50); MCH 30.6 pg (26.0-34.0); MCV 90.2 fL (80.0-100.0); MEAN PLATELET VOLUME 9.5 fL (7.4-10.4); MONOCYTES 6.5 % (2-11); NEUTROPHILS 74.1 % (40-80); PLATELET COUNT 339 10x3/uL (130-400); RBC 3.56 10x6/uL (4.20-6.10); RDW 15.2 % (11.5-14.5); WBC 11.5 10x3/uL (4.8-10.8)
[2018-05-22 07:07] LABS: ANION GAP 17.3 mmol/L (8-16); CALCIUM 8.9 mg/dL (8.5-10.1); CARBON DIOXIDE 22.9 mmol/L (21.0-32.0); CREATININE - SERUM 4.6 mg/dL (0.6-1.3); POTASSIUM - SERUM 4.2 mmol/L (3.5-5.1)
[2018-05-22 18:00] VITALS: BP 102/75
[2018-05-22 20:00] VITALS: BP 102/75
[2018-05-23 00:28] VITALS: BP 107/59
[2018-05-23 00:59] VITALS: BP 159/81
[2018-05-23 08:56] VITALS: BP 133/70
[2018-05-23 18:02] VITALS: BP 150/87
[2018-05-23 21:54] VITALS: BP 137/85
[2018-05-24 06:00] VITALS: BP 161/90
[2018-05-24 12:00] VITALS: BP 125/72
[2018-05-24 21:21] VITALS: BP 139/87
[2018-05-25 06:48] LABS: BASOPHILS 0.5 % (0-2); EOSINOPHILS 3.3 % (0-7); HEMATOCRIT 32.8 % (42.0-54.0); HEMOGLOBIN 10.9 g/dL (13.5-17.5); IMMATURE GRANULOCYTES 7.5 % (0-5); LYMPHOCYTES 14.7 % (15-50); MCH 30.4 pg (26.0-34.0); MCHC 33.2 g/dL (31.0-37.0); MCV 91.6 fL (80.0-100.0); MEAN PLATELET VOLUME 10.1 fL (7.4-10.4); MONOCYTES 5.3 % (2-11); NEUTROPHILS 68.7 % (40-80); PLATELET COUNT 354 10x3/uL (130-400); RBC 3.58 10x6/uL (4.20-6.10); RDW 15.6 % (11.5-14.5); WBC 13.8 10x3/uL (4.8-10.8)
[2018-05-25 07:03] LABS: ANION GAP 17.9 mmol/L (8-16); CARBON DIOXIDE 22.2 mmol/L (21.0-32.0); CREATININE - SERUM 4.8 mg/dL (0.6-1.3); POTASSIUM - SERUM 4.1 mmol/L (3.5-5.1)
[2018-05-25 08:00] VITALS: BP 125/72
[2018-05-26 07:00] VITALS: BP 162/87
[2018-05-26 07:04] LABS: ANION GAP 18.8 mmol/L (8-16); CARBON DIOXIDE 21.4 mmol/L (21.0-32.0); CREATININE - SERUM 4.9 mg/dL (0.6-1.3); POTASSIUM - SERUM 4.2 mmol/L (3.5-5.1)
[2018-05-26] MEDS ORDERED: PROTONIX40 MG PO (08:53)
== END 2018-05-26 12:30 | DRG 91 ==
LOC: D.REHAB 17:25
PROVIDERS: Emergency Medicine; Internal Medicine Nephrology
PROC: 5A1D70Z Performance of Urinary Filtration, Intermittent, Less than 6 Hours Per Day (ICD-10-PCS; principal; 2018-05-09)
DX: G72.81 Critical illness myopathy (principal); J18.9 Pneumonia, unspecified organism; G93.41 Metabolic encephalopathy; J96.01 Acute respiratory failure with hypoxia; N17.9 Acute kidney failure, unspecified; J90 Pleural effusion, not elsewhere classified; I12.9 Hypertensive chronic kidney disease with stage 1 through stage 4 chronic kidney disease, or unspecified chronic kidney disease; N18.9 Chronic kidney disease, unspecified; E78.5 Hyperlipidemia, unspecified; R13.12 Dysphagia, oropharyngeal phase; I25.10 Atherosclerotic heart disease of native coronary artery without angina pectoris; D63.1 Anemia in chronic kidney disease; F03.90 Unspecified dementia, unspecified severity, without behavioral disturbance, psychotic disturbance, mood disturbance, and anxiety; M19.90 Unspecified osteoarthritis, unspecified site; N40.0 Benign prostatic hyperplasia without lower urinary tract symptoms; F32.9 Major depressive disorder, single episode, unspecified; R41.0 Disorientation, unspecified; D72.829 Elevated white blood cell count, unspecified; Z99.2 Dependence on renal dialysis

== ENCOUNTER 2018-05-28 00:53 | Observation (INO) | payer MEDICARE, BC ==
[~2018-05-28] VITALS: Ht 167.6 cm; Wt 75.0 kg
[2018-05-28] VITALS (12 sets, daily range): BP systolic 103–138; BP diastolic 64–93; Ht 167.6 cm; Wt 75.0 kg
--- NOTE | ~2018-05-28 | OP ---
PATIENT NAME: MO QUAN MEDICAL RECORD: [id number] :31 LOCATION:[facility] ADMISSION DATE:05/28/18 SURGEON: RUBY MCGREGOR MD DATE OF OPERATION: PREOPERATIVE DIAGNOSES: 1. Chronic kidney disease. 2. Hypertension. 3. Dementia. POSTOPERATIVE DIAGNOSES: 1. Chronic kidney disease. 2. Hypertension. 3. Dementia. PROCEDURE: Right IJ HemoSplit catheter removal. SURGEON: Ruby Mcgregor MD REPORT OF PROCEDURE: The patient's right chest was inspected and the sutures were cut loose. A gentle tension was placed on the HemoSplit catheter and we were able to pull it free from its subcutaneous attachments. Eventually, the entire catheter was pulled out completely. Pressure dressings were applied over the tract running up to the patient's right neck and over the right shoulder. At the conclusion of the case, there was no sign of any surgical bleeding. COMPLICATIONS: None. CONDITION: Stable. ANESTHESIA: None. BLOOD LOSS: Minimal. Procedure done in the ER at the bedside. TRANSINT:[id number] Voice Confirmation ID: [id number] DOCUMENT ID: [id number] RUBY MCGREGOR MD at 1714 CC: [id number] DICTATION DATE: 05/29/18 1237 LASERIST: 05/29/18 1243 DIS IN 05/28/18 [id number] [place] [address]
[~2018-05-28 00:53] MED LIST changes: +PROTONIX40 MG PO
[2018-05-28] MEDS ORDERED: C-500500 MG PO (00:58)
[2018-05-28] MEDS ORDERED: PROTONIX40 MG (00:59)
[2018-05-28] MEDS ORDERED: MYLANTA / MAALO30 ML (01:00)
[2018-05-28 01:29] LABS: BASOPHILS 0.6 % (0-2); EOSINOPHILS 2.9 % (0-7); HEMATOCRIT 29.3 % (42.0-54.0); IMMATURE GRANULOCYTES 5.6 % (0-5); LYMPHOCYTES 16.7 % (15-50); MCH 30.5 pg (26.0-34.0); MCHC 34.1 g/dL (31.0-37.0); MCV 89.3 fL (80.0-100.0); MEAN PLATELET VOLUME 9.4 fL (7.4-10.4); MONOCYTES 6.8 % (2-11); NEUTROPHILS 67.4 % (40-80); RBC 3.28 10x6/uL (4.20-6.10); RDW 15.3 % (11.5-14.5); WBC 11.2 10x3/uL (4.8-10.8)
[2018-05-28 01:31] LABS: PLATELET COUNT 280 10x3/uL (130-400)
[2018-05-28 01:48] LABS: ALBUMIN 2.6 g/dL (3.4-5.0); ANION GAP 15.4 mmol/L (8-16); BILIRUBIN - TOTAL 0.3 mg/dL (0.2-1.3); CALCIUM 8.6 mg/dL (8.5-10.1); CARBON DIOXIDE 21.6 mmol/L (21.0-32.0); CREATININE - SERUM 4.8 mg/dL (0.6-1.3)
[2018-05-28 04:03] LABS: APPEARANCE CLOUDY (CLEAR); BILIRUBIN NEGATIVE (NEGATIVE); COLOR YELLOW (YELLOW); GLUCOSE NEGATIVE (NEGATIVE); KETONE NEGATIVE (NEGATIVE); NITRITE NEGATIVE (NEGATIVE); PROTEIN 1+ mg/dL (NEGATIVE); SPECIFIC GRAVITY 1.015 (1.005-1.020); UROBILINOGEN NORMAL (NORMAL)
[2018-05-28 04:05] LABS: BACTERIA MODERATE /hpf (NONE SEEN); EPITHELIAL CELLS 0-5 /hpf (0-5)
[2018-05-28] MEDS ORDERED: BACTRIM DS PO (14:48)
== END 2018-05-28 17:08 ==
LOC: D.ER 00:53 → D.M2 03:05 → D.EDHOLD 03:05 → OBSVTIME 03:05 → D.EDHOLD 03:05 → D.M2 13:35 → D.EDHOLD 17:08
PROVIDERS: Family Medicine
DX: I12.9 Hypertensive chronic kidney disease with stage 1 through stage 4 chronic kidney disease, or unspecified chronic kidney disease (principal); N18.4 Chronic kidney disease, stage 4 (severe); N39.0 Urinary tract infection, site not specified; G72.81 Critical illness myopathy; F03.90 Unspecified dementia, unspecified severity, without behavioral disturbance, psychotic disturbance, mood disturbance, and anxiety; F32.9 Major depressive disorder, single episode, unspecified; D63.8 Anemia in other chronic diseases classified elsewhere; I25.10 Atherosclerotic heart disease of native coronary artery without angina pectoris; E78.5 Hyperlipidemia, unspecified

== ENCOUNTER 2018-06-25 12:58 | Inpatient (IN) | payer MEDICARE, BC ==
[~2018-06-25] VITALS: Ht 167.6 cm; Wt 62.7 kg
--- NOTE | ~2018-06-25 | MORECARE ---
CASE MANAGEMENT DISCHARGE SUMMARY PATIENT: MO QUAN UNIT: [id number] ADM DATE: 06/25/18 AGE: 88 : 31 SEX: M ROOM/BED: D.2121 AUTHOR: PAOLADOC PHYSICIAN: REFERRING PHYSICIAN: CHAD REDDING MD DATE OF SERVICE: 07/02/18 Discharge Plan Patient Name: MO QUAN Facility: [facility]:[place] : 1930 Planned Disposition: Residential Facility Anticipated Discharge Date: 07/03/18 Discharge Date: Expected LOS: 8 Initial Reviewer: [email or web address] Initial Review Date: 06/30/2018 Generated: 07/02/18 5:06 pm Comments DCP- Discharge Planning Updated by [email or web address]: Compa Mancia on 07/02/18 2:[address] Patient Name: MO QUAN Encounter No: [id number] : 1930 Primary Insurance: MEDICARE A & B Anticipated DC Date: 07-03-2018 Planned Disposition: Residential Facility External Planned Provider: [facility]; MEDICARE REHAB BED DCP follow-up note: CM RECEIVED PHONE MESSAGE FROM NURSE TAYLOR WITH 'S PLAN FOR DISCHARGE TOMORROW, 07-03-18. CM CALLED [facility], , WHO VEIFIED PT HAS REHAB BED HOLDING AT THE [facility] WHO WILL ACCEPT BACK FOR CONTINUED REHAB AT DISCHARGE. CM FAXED HOSPITAL UPDATE TO THE [facility] VIA [facility] AT [phone]. FOR DISCHARGE TO THE [facility] AND [facility], FAX DISCHARGE INFORMATION TO [facility] AT [phone]; NURSE REPORT TO BE CALLED TO THE [facility] AT [phone]. THE [facility] TO ARRANGE VAN TRANSPORATION. Roving Carrier: Compa Mancia Appended by Compa Mancia on 07/02/2018 15:57 CDT: CM RECEIVED MESSAGE FROM JOELLE [facility], [place] FINISH OPERATOR TIG WELDER SCHEDULED FOR 07-03-18, 11:00AM. CM TO FOLLOW AND ASSIST NEEDED. EDEL RUVALCABA DCP- Discharge Planning Updated by [id number]: Compa Mancia on 07/01/18 1:[address] Patient Name: MO QUAN Encounter No: [id number] : 1930 Primary Insurance: MEDICARE A & B Anticipated DC Date: Planned Disposition: Residential Facility External Planned Provider: [facility]; MEDICARE REHAB BED DCP follow-up note: CM RECEIVED DISCHARGE PLANNING ORDER, MET WITH PT IN ROOM WHO REPORTS PLAN TO [facility] FOR CONT[facility]UED REHAB. IMPORTANT MESSAGE FROM MEDICARE PROVIDED AND EXPLAINED. PT ASKED CM TO CALL HIS AND LET HER KNOW THAT HE MAY DISCHARGE SOON TO REHAB. CM CALLED EVETTE QUAN, , LEFT MESSAGE ASKING FOR RETURN CALL. CM CALLED AND SPOKE TO DAUGHTER, HASEEB, , WHO REPORTS FAMILY IN AGREEMENT WITH RETURN TO THE [facility] FOR CONTINUED REHAB. CM CALLED JOELLE OF THE [facility], , WHO VEIFIED PT HAS REHAB BED HOLDING AT THE [facility] WHO WILL ACCEPT BACK FOR CONTINUED REHAB AT DISCHARGE. CM FAXED HOSPITAL UPDATE TO THE [facility] VIA JOELLE AT [phone]. FOR DISCHARGE TO THE [facility], FAX DISCHARGE INFORMATION TO THE [facility] AT [phone]; NURSE REPORT TO BE CALLED TO THE [facility] AT [phone]. THE [facility] TO ARRANGE VAN TRANSPORATION. Roving Carrier: Compa Mancia DCP- Discharge Planning Updated by [email or web address]: Compa Mancia on 06/30/18 1:[address] Patient Name: MO QUAN Admission Status: Elective Accout number: [id number] Admission Date: 06-25-2018 : 1930 Admission Diagnosis:SHORTNESS OF BREATH Attending: CHAD REDDING Current LOS: 5 Anticipated DC Date: Planned Disposition: Residential Facility Primary Insurance: MEDICARE A & B PLANNED EXTERNAL PROVIDER: THE [facility] - MEDICARE REHAB BED Discharge Planning Comments: CM MET WITH PT IN ROOM TO DISCUSS DISCHARGE PLANNING AND NEEDS. PT REPORTS LIVING AT HOME INDEPENDENTLY WITH SPOUSE BUT HAS BEEN IN THE [facility] REHAB AFTER REHAB AT THE HOSPITAL. PT HAS CANE AND WALKER WITH NO MEDICAL EQUIPMENT PROVIDER PREFERENCE AND NO OUTSIDE SERVICES ASSISTING IN THE HOME. CM DISCUSSED AVAILABILITY OF HOME HEALTH, REHAB SERVICES AND MEDICAL EQUIPMENT. PT REPORTS HE WILL RETURN TO [facility] REHAB AT DISCHARGE. CM CALLED JOELLE OF THE [facility], , WHO VEIFIED PT HAS REHAB BED HOLDING AT THE [facility] WHO WILL ACCEPT BACK FOR CONTINUED REHAB AT DISCHARGE. CM FAXED HOSPITAL UPDATE TO THE [facility] VIA JOELLE AT [phone]. FOR DISCHARGE TO THE [facility], FAX DISCHARGE INFORMATION TO THE [facility] AT [phone]; NURSE REPORT TO BE CALLED TO THE [facility] AT [phone]. THE [facility] TO ARRANGE VAN TRANSPORATION. Roving Carrier: Compa Mancia DCPIA - Discharge Planning Initial Assessment Updated by [email or web address]: Compa Mancia on 06/30/18 2:27 pm * Is the patient Alert and Oriented? Yes * How many steps to enter\\exit or inside your home? * PCP DR. LIRIANO * Pharmacy [facility] IN [place] * Preadmission Environment Residential Facility * [facility] * ADLs Partial Dependent * Partial ADLs (Assistance needed) Ambulation Bathing Medication Management Toileting Transfers * Equipment Cane Walker * Other Equipment ALL MEDICAL EQUIPMENT PROVIDED BY THE [facility] * List name and contact numbers for known caregivers / representatives who currently or will assist patient after discharge: EVETTE ARREOLAEMAN, SPOUSE, HASEEB QUAN, DTR, * Verbal permission to speak to the caregivers and representatives has been obtained from the patient. Yes * Community resources currently utilized None * Please name any agencies selected above. NONE * Additional services required to return to the preadmission environment? No * Can the patient safely return to the preadmission environment? Yes * Has this patient been hospitalized within the prior 30 days at any hospital? Yes Coverage Notice Reviewer: [id number] - Compa Mancia Notice Issued Date-Time: 07/01/2018 13:00 Notice Type: IM Discharge Notice Notice Delivered To: Patient Relationship to Patient: Procedure Writer Name: Delivery Method: HAND - Hand Delivered Alexandra Days: Prior Verbal Notification: Recipient Understood Notice: Yes Recipient Signature: Yes Med Rec Note Co-signed by Attending: Coverage Notice Comment: Last DP export: 07/02/18 1:33 p Patient Name: MO QUAN Page [id number] at 1606 All edits/amendments must be made on the electronic document DICTATION DATE: 07/02/181604 RN LABOR DELIVERY: SHAY 07/02/181604 RPT#: [id number] DC DATE: STATUS: ADM IN [facility] [address] [place] [address] END OF REPORT
--- NOTE | ~2018-06-25 | CN ---
PATIENT NAME:MO QUAN MEDICAL RECORD: [id number] : 32 LOCATION:D. D.2121 ADMIT DATE: 06/25/18 ACCOUNT: [id number] CONSULTING PHYSICIAN: LASHONDA DALEY MD REFERRING PHYSICIAN: CHAD REDDING MD DATE OF CONSULTATION: 06/25/2018 ADMITTING PHYSICIAN: Dr. Yessica Redding. CONSULTING PHYSICIAN: Dr. Ireland HISTORY OF PRESENT ILLNESS: The patient is an 88-year-old male with history of stage IV chronic renal insufficiency, dementia, status post CABG in April of this year. He states he lives at home with his , but began more short of breath recently. He was seen on routine exam, also office visit by Dr. Redding today and was felt to be in congestive heart failure, was hypoxic. For that reason, he was directly admitted to the hospital. He denies recent sputum production or fever, but he is demented. He denies chest pain. He states he has been on dialysis in the past, but not recently. 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 PAST SURGICAL HISTORY: CABG in April of 2018, right knee arthroscopy, TURP, sinus surgery in the 60s. ALLERGIES: None known. FAMILY HISTORY: Noncontributory. HOME MEDICATIONS: Aricept 10 mg daily, albuterol updrafts q.i.d., Neurontin 300 mg p.o. t.i.d., Zoloft 100 mg daily, Mucinex 600 mg b.i.d., Flonase nasal spray 2 nasal sprays each nostril daily, MiraLax 17 grams p.o. daily, Colace 100 mg p.o. b.i.d., Protonix 40 mg a day, Senokot 2 tabs at h.s., Megace 40 mg p.o. b.i.d., Vitamin C 1000 mg p.o. daily, finasteride 5 mg p.o. daily, Bactrim-DS 1 p.o. b.i.d. ALLERGIES: None known. REVIEW OF SYSTEMS: GENERAL: He has been generally fatigued, but denies fever. HEENT: No recent visual change, sinus congestion, or sore throat. RESPIRATORY: Admits to shortness of breath with rest or with activity. Denies cough or sputum production. CARDIAC: Denies palpitations, but admits to PND. He denies any recent peripheral edema or chest pain since his heart surgery. GASTROINTESTINAL: No nausea or vomiting. Denies change in stools, blood per rectum recently. Denies abdominal pain or postprandial fatty food intolerance. GENITOURINARY: He has nocturia twice nightly. No dysuria. MUSCULOSKELETAL: He has chronic arthralgias. ENDOCRINE: Denies polyuria, polydipsia, heat or cold intolerance. NEUROLOGIC: Denies history of stroke or seizures. PSYCHIATRIC: Admits to depressed mood in the past, said not so much now. CONSULT REPORT [id number] MO QUAN INTEGUMENT: No recent petechiae or increase in bruising. PHYSICAL EXAMINATION: VITAL SIGNS: Temperature 98.1, pulse 100 and regular, respirations are 17, blood pressure is 130/82, sat 100% on 3 liters. HEENT: Normocephalic. Eyes are clear. Oropharynx unremarkable. NECK: Supple, without JVD. CHEST: He has decreased breath sounds in the bases. No wheezes are appreciated. No crackles. ABDOMEN: Soft, nontender. NEUROLOGIC: The patient is oriented to person and place and time. No obvious sensory or motor gross deficits noted. PSYCH: The patient denies depressed mood. He is very upbeat and very glad to see me. INTEGUMENT: Some bruising is noted on his knees. HEART: Tachycardic without murmur. Peripheral pulses intact. LABORATORY DATA: Chest x-ray shows bibasilar airspace disease concerning for pneumonia with pleural thickening versus right small pleural effusion. INR is 1.07. White count is 11.8 thousand with left shift, H&H is 9.2 and 29.3. Potassium 4.8, BUN and creatinine are 70 and 4.9. Liver functions are normal. ProBNP is pending. ASSESSMENT: Zgqks-ss-ylvpaqx hypoxic respiratory failure, possible HAP with bibasilar infiltrates noted on chest x-ray today; remote history of ARDS post steroids; szoqf-zb-fvgpvgd renal insufficiency on HD Friday, Friday and [place]; history of CAD post CABG 04/08/2018; anemia; hypertension; osteoarthritis; BPH; dementia; history of arrhythmia, on amiodarone; allergic rhinitis. PLAN: Renal and pulmonary have seen the patient. Antibiotics have been started by Dr. Rivera. Bactrim is being held currently. We will follow him medically. TRANSINT:[id number] Voice Confirmation ID: [id number] DOCUMENT ID: [id number] LASHONDA DALEY MD at 1746 CC: [id number] DICTATION DATE: 06/25/181735 PHARMACY MESSENGER: 06/26/18 0052 DIS IN 07/03/18 [facility] [address] [place] [address]
--- NOTE | ~2018-06-25 | MORECARE ---
CASE MANAGEMENT DISCHARGE SUMMARY PATIENT: MO QUAN UNIT: [id number] ADM DATE: 06/25/18 AGE: 88 : 31 SEX: M ROOM/BED: D.2121 AUTHOR: TANIYA GUEVARA PHYSICIAN: REFERRING PHYSICIAN: CHAD REDDING MD DATE OF SERVICE: 06/30/18 Discharge Plan Patient Name: MO QUAN Facility: [facility]:[place] : 1930 Planned Disposition: Intermediate Facility Anticipated Discharge Date: Discharge Date: Expected LOS: Initial Reviewer: [email or web address] Initial Review Date: 06/30/2018 Generated: 06/30/18 3:32 pm DCPIA - Discharge Planning Initial Assessment Updated by [email or web address]: Compa Mancia on 06/30/18 2:27 pm * Is the patient Alert and Oriented? Yes * How many steps to enter\exit or inside your home? * PCP DR. LIRIANO * [facility]acy [facility] IN [place] * Preadmission Environment Intermediate Facility * Facility Name [facility] * ADLs Partial Dependent * Partial ADLs (Assistance needed) Ambulation Bathing Medication Management Toileting Transfers * Equipment Cane Walker * Other Equipment ALL MEDICAL EQUIPMENT PROVIDED BY THE [facility] * List name and contact numbers for known caregivers / representatives who currently or will assist patient after discharge: EVETTE QUAN, SPOUSE, HASEEB KADEEM, DTR, * Verbal permission to speak to the caregivers and representatives has been obtained from the patient. Yes * Community resources currently utilized None * Please name any agencies selected above. NONE * Additional services required to return to the preadmission environment? No * Can the patient safely return to the preadmission environment? Yes * Has this patient been hospitalized within the prior 30 days at any hospital? Yes External Providers External Provider: [facility] [place] Next Contact Date: 06/30/2018 Service Request Date: Service Type: Resolution: Reviewer: Comments: Last DP export: 06/30/18 1:25 Patient Name: MO QUAN Page [id number] at 1432 All edits/amendments must be made on the electronic document DICTATION DATE: 06/30/181430 TACK PULLER: SHAY 06/30/181430 RPT#: [id number] DC DATE: STATUS: ADM IN [facility] [address] [place] [address] END OF REPORT
--- NOTE | ~2018-06-25 | MORECARE ---
CASE MANAGEMENT DISCHARGE SUMMARY PATIENT: MO QUAN UNIT: [id number] ADM DATE: 06/25/18 AGE: 88 : 31 SEX: M ROOM/BED: D.2121 AUTHOR: PAOLADOC PHYSICIAN: REFERRING PHYSICIAN: CHAD REDDING MD DATE OF SERVICE: 07/02/18 Discharge Plan Patient Name: MO QUAN Facility: [facility]:[place] : 1930 Planned Disposition: Long Term Facility Anticipated Discharge Date: 07/03/18 Discharge Date: Expected LOS: 8 Initial Reviewer: [email or web address] Initial Review Date: 06/30/2018 Generated: 07/02/18 3:33 pm Comments DCP- Discharge Planning Updated by [email or web address]: Compa Mancia on 07/02/18 1:[address] Patient Name: MO QUAN Encounter No: [id number] : 1930 Primary Insurance: MEDICARE A & B Anticipated DC Date: 07-03-2018 Planned Disposition: Long Term Facility External Planned Provider: [facility]; MEDICARE REHAB BED DCP follow-up note: CM RECEIVED PHONE MESSAGE FROM NURSE TAYLOR WITH 'S PLAN FOR DISCHARGE TOMORROW, 07-03-18. CM CALLED JOELLE OF THE [facility], , WHO VEIFIED PT HAS REHAB BED HOLDING AT THE [facility] WHO WILL ACCEPT BACK FOR CONTINUED REHAB AT DISCHARGE. CM FAXED HOSPITAL UPDATE TO THE [facility] [employer]IA [employer] AT [phone]. FOR DISCHARGE TO [facility], FAX DISCHARGE INFORMATION TO THE [facility] AT [phone]; NURSE REPORT TO BE CALLED TO THE [facility] AT [phone]. THE [facility] TO ARRANGE VAN TRANSPORATION. Floor Technician: Compa Mancia DCP- Discharge Planning Updated by [id number]: Compa Mancia on 07/01/18 1:[address] Patient Name: MO QUAN Encounter No: [id number] : 1930 Primary Insurance: MEDICARE A & B Anticipated DC Date: Planned Disposition: Long Term Facility External Planned Provider: [facility]; MEDICARE REHAB BED DCP follow-up note: CM RECEIVED DISCHARGE PLANNING ORDER, MET WITH PT IN ROOM WHO REPORTS PLAN TO RETURN TO "[facility]" FOR CONTINUED REHAB. IMPORTANT MESSAGE FROM MEDICARE PROVIDED AND EXPLAINED. PT ASKED CM TO CALL HIS AND LET HER KNOW THAT HE MAY DISCHARGE SOON TO REHAB. CM CALLED EVETTE QUAN, , LEFT MESSAGE ASKING FOR RETURN CALL. CM CALLED AND SPOKE TO DAUGHTER, HASEEB, , WHO REPORTS FAMILY IN AGREEMENT WITH RETURN TO THE [facility] FOR CONTINUED REHAB. CM CALLED JOELLE [facility], , WHO VEIFIED PT HAS REHAB BED HOLDING AT THE [facility] WHO WILL ACCEPT BACK FOR CONTINUED REHAB AT DISCHARGE. CM FAXED HOSPITAL UPDATE TO THE [facility] VIA [employer] AT [phone]. FOR DISCHARGE TO THE [facility], FAX DISCHARGE INFORMATION TO THE [facility] AT [phone]; NURSE REPORT TO BE CALLED TO THE [facility] AT [phone]. THE [facility] TO ARRANGE VAN TRANSPORATION. Floor Technician: Compa Mancia DCP- Discharge Planning Updated by [email or web address]: Compa Mancia on 06/30/18 1:[address] Patient Name: MO QUAN Admission Status: Elective Accout number: [id number] Admission Date: 06-25-2018 : 1930 Admission Diagnosis:SHORTNESS OF BREATH Attending: CHAD REDDING Current LOS: 5 Anticipated DC Date: Planned Disposition: Long Term Facility Primary Insurance: MEDICARE A & B PLANNED EXTERNAL PROVIDER: [facility] - MEDICARE REHAB BED Discharge Planning Comments: CM MET WITH PT IN ROOM TO DISCUSS DISCHARGE PLANNING AND NEEDS. PT REPORTS LIVING AT HOME INDEPENDENTLY WITH SPOUSE [facility]. PT HAS CANE AND WALKER WITH NO MEDICAL EQUIPMENT PROVIDER PREFERENCE AND NO OUTSIDE SERVICES ASSISTING IN THE HOME. CM DISCUSSED AVAILABILITY OF HOME HEALTH, REHAB SERVICES AND MEDICAL EQUIPMENT. PT REPORTS HE WILL RETURN TO [facility] AT DISCHARGE. CM CALLED JOELLE [facility], , WHO VEIFIED PT HAS REHAB BED HOLDING AT THE [facility] WHO WILL ACCEPT BACK FOR CONTINUED REHAB AT DISCHARGE. CM FAXED HOSPITAL UPDATE TO THE [facility] [employer]IA [employer] AT [phone]. FOR DISCHARGE TO THE [facility], FAX DISCHARGE INFORMATION TO THE [facility] AT [phone]; NURSE REPORT TO BE CALLED TO THE [facility] AT [phone]. [facility] TO ARRANGE VAN TRANSPORATION. Floor Technician: Compa Mancia DCPIA - Discharge Planning Initial Assessment Updated by [id number]: Compa Mancia on 06/30/18 2:27 pm * Is the patient Alert and Oriented? Yes * How many steps to enter\\exit or inside your home? * PCP DR. LIRIANO * Pharmacy [facility] IN [place] * Preadmission Environment Long Term Facility * Facility Name [facility] * ADLs Partial Dependent * Partial ADLs (Assistance needed) Ambulation Bathing Medication Management Toileting Transfers * Equipment Cane Walker * Other Equipment ALL MEDICAL EQUIPMENT PROVIDED BY THE [facility] * List name and contact numbers for known caregivers / representatives who currently or will assist patient after discharge: EVETTE QUAN, SPOUSE, HASEEB QUAN, DTR, * Verbal permission to speak to the caregivers and representatives has been obtained from the patient. Yes * Community resources currently utilized None * Please name any agencies selected above. NONE * Additional services required to return to the preadmission environment? No * Can the patient safely return to the preadmission environment? Yes * Has this patient been hospitalized within the prior 30 days at any hospital? Yes Coverage Notice Reviewer: [id number] - Compa Mancia Notice Issued Date-Time: 07/01/2018 13:00 Notice Type: IM Discharge Notice Notice Delivered To: Patient Relationship to Patient: Space Engineer Name: Delivery Method: HAND - Hand Delivered Alexandra Days: Prior Verbal Notification: Recipient Understood Notice: Yes Recipient Signature: Yes Med Rec Note Co-signed by Attending: Coverage Notice Comment: Last DP export: 07/02/18 1:25 p Patient Name: MO QUAN Page 67030 at 1433 All edits/amendments must be made on the electronic document DICTATION DATE: 07/02/181431 SEISMOGRAPH RECORDER: SHAY 07/02/181431 RPT#: [id number] DC DATE: STATUS: ADM IN [facility] [address] [place] [address] END OF REPORT
--- NOTE | ~2018-06-25 | MORECARE ---
CASE MANAGEMENT DISCHARGE SUMMARY PATIENT: MO QUAN UNIT: [id number] ADM DATE: 06/25/18 AGE: 88 : 31 SEX: M ROOM/BED: D.2121 AUTHOR: PAOLADOC PHYSICIAN: REFERRING PHYSICIAN: CHAD REDDING MD DATE OF SERVICE: 07/03/18 Discharge Plan Patient Name: MO QUAN Facility: [facility]:[place] : 1930 Planned Disposition: Long-Term Facility Anticipated Discharge Date: 07/03/18 Discharge Date: Expected LOS: 8 Initial Reviewer: [id number] Initial Review Date: 06/30/2018 Generated: 07/03/18 1:39 pm Comments DCP- Discharge Planning Updated by [email or web address]: Compa Mancia on 07/02/18 2:[address] Patient Name: MO QUAN Encounter No: [id number] : 1930 Primary Insurance: MEDICARE A & B Anticipated DC Date: 07-03-2018 Planned Disposition: Long-Term Facility External Planned Provider: [facility]; MEDICARE REHAB BED DCP follow-up note: CM RECEIVED PHONE MESSAGE FROM NURSE TAYLOR WITH 'S PLAN FOR DISCHARGE TOMORROW, 07-03-18. CM CALLED [facility], , WHO VEIFIED PT HAS REHAB BED HOLDING AT THE [facility] WHO WILL ACCEPT BACK FOR CONTINUED REHAB AT DISCHARGE. CM FAXED HOSPITAL UPDATE TO THE [facility] VIA [employer] AT [phone]. FOR DISCHARGE TO THE [facility], FAX DISCHARGE INFORMATION TO [facility] AT [phone]; NURSE REPORT TO BE CALLED TO [facility] AT [phone]. [facility] TO ARRANGE VAN TRANSPORATION. Hr Manager: Compa Mancia Appended by Compa Mancia on 07/02/2018 15:57 CDT: CM RECEIVED MESSAGE FROM JOELLE [facility], VAN CUSTOMER RELATIONS CONSULTANT SCHEDULED FOR 07-03-18, 11:00AM. CM TO FOLLOW AND ASSIST NEEDED. EDEL RUVALCABA DCP- Discharge Planning Updated by [email or web address]: Compa Mancia on 07/01/18 1:[address] Patient Name: MO QUAN Encounter No: [id number] : 1930 Primary Insurance: MEDICARE A & B Anticipated DC Date: Planned Disposition: Long-Term Facility External Planned Provider: [facility]; MEDICARE REHAB BED DCP follow-up note: CM RECEIVED DISCHARGE PLANNING ORDER, MET WITH PT IN ROOM WHO RE[facility]. IMPORTANT MESSAGE FROM MEDICARE PROVIDED AND EXPLAINED. PT ASKED CM TO CALL HIS AND LET HER KNOW THAT HE MAY DISCHARGE SOON TO REHAB. CM CALLED EVETTE QUAN, , LEFT MESSAGE ASKING FOR RETURN CALL. CM CALLED AND SPOKE TO DAUGHTER, HASEEB, , WHO REPORTS FAMILY IN AGREEMENT WITH RETURN TO [facility] FOR CONTINUED REHAB. CM CALLED JOELLE OF [facility], , WHO VEIFIED PT HAS REHAB BED HOLDING AT THE [facility] WHO WILL ACCEPT BACK FOR CONTINUED REHAB AT DISCHARGE. CM FAXED HOSPITAL UPDATE TO THE [facility] VIA [facility] AT [phone]. FOR DISCHARGE TO THE [facility], FAX DISCHARGE INFORMATION TO [facility] AT [phone]; NURSE REPORT TO BE CALLED TO THE [facility] AT [phone]. [facility] TO ARRANGE VAN TRANSPORATION. Hr Manager: Compa Mancia DCP- Discharge Planning Updated by [id number]: Compa Mancia on 06/30/18 1:[address] Patient Name: MO QUAN Admission Status: Elective Accout number: [id number] Admission Date: 06-25-2018 : 1930 Admission Diagnosis:SHORTNESS OF BREATH Attending: CHAD REDDING Current LOS: 5 Anticipated DC Date: Planned Disposition: Long-Term Facility Primary Insurance: MEDICARE A & B PLANNED EXTERNAL PROVIDER: [facility] - MEDICARE REHAB BED Discharge Planning Comments: CM MET WITH PT IN ROOM TO DISCUSS DISCHARGE PLANNING AND NEEDS. PT REPORTS LIVING AT HOME INDEPENDENTLY WITH SPOUSE BUT HAS BEEN IN THE [facility] REHAB AFTER REHAB AT THE HOSPITAL. PT HAS CANE AND WALKER WITH NO MEDICAL EQUIPMENT PROVIDER PREFERENCE AND NO OUTSIDE SERVICES ASSISTING IN THE HOME. CM DISCUSSED AVAILABILITY OF HOME HEALTH, REHAB SERVICES AND MEDICAL EQUIPMENT. PT REPORTS HE WILL RETURN TO [facility] REHAB AT DISCHARGE. CM CALLED JOELLE OF [facility], , WHO VEIFIED PT HAS REHAB BED HOLDING AT THE [facility] WHO WILL ACCEPT BACK FOR CONTINUED REHAB AT DISCHARGE. CM FAXED HOSPITAL UPDATE TO THE [facility] VIA [facility] AT [phone]. FOR DISCHARGE TO THE [facility], FAX DISCHARGE INFORMATION TO [facility] AT [phone]; NURSE REPORT TO BE CALLED TO THE [facility] AT [phone]. [facility] TO ARRANGE VAN TRANSPORATION. Hr Manager: Compa Mancia DCPIA - Discharge Planning Initial Assessment Updated by [email or web address]: Compa Mancia on 06/30/18 2:27 pm * Is the patient Alert and Oriented? Yes * How many steps to enter\\exit or inside your home? * PCP DR. LIRIANO * Pharmacy [facility] IN [place] * Preadmission Environment Long-Term Facility * Facility Name [facility] * ADLs Partial Dependent * Partial ADLs (Assistance needed) Ambulation Bathing Medication Management Toileting Transfers * Equipment Cane Walker * Other Equipment ALL MEDICAL EQUIPMENT PROVIDED BY [facility] * List name and contact numbers for known caregivers / representatives who currently or will assist patient after discharge: EVETTE ARREOLAEMAN, SPOUSE, HASEEB QUAN, DTR, * Verbal permission to speak to the caregivers and representatives has been obtained from the patient. Yes * Community resources currently utilized None * Please name any agencies selected above. NONE * Additional services required to return to the preadmission environment? No * Can the patient safely return to the preadmission environment? Yes * Has this patient been hospitalized within the prior 30 days at any hospital? Yes Coverage Notice Reviewer: [id number] - Compa Mancia Notice Issued Date-Time: 07/01/2018 13:00 Notice Type: IM Discharge Notice Notice Delivered To: Patient Relationship to Patient: Saturator Operator Name: Delivery Method: HAND - Hand Delivered Alexandra Days: Prior Verbal Notification: Recipient Understood Notice: Yes Recipient Signature: Yes Med Rec Note Co-signed by Attending: Coverage Notice Comment: Last DP export: 07/02/18 3:06 p Patient Name: MO QUAN Page 00171 at 1239 All edits/amendments must be made on the electronic document DICTATION DATE: 07/03/18 1239 ASSOCIATE PRODUCT MANAGER: SHAY 07/03/18 1239 RPT#: [id number] DC DATE: STATUS: ADM IN [facility] [address] [place] [address] END OF REPORT
--- NOTE | ~2018-06-25 | MORECARE ---
CASE MANAGEMENT DISCHARGE SUMMARY PATIENT: MO QUAN UNIT: [id number] ADM DATE: 06/25/18 AGE: 88 : 31 SEX: M ROOM/BED: D.2121 AUTHOR: PAOLA,DOC PHYSICIAN: REFERRING PHYSICIAN: CHAD REDDING MD DATE OF SERVICE: 07/01/18 Discharge Plan Patient Name: MO QUAN Facility: [facility]:[place] : 1930 Planned Disposition: Shelter Facility Anticipated Discharge Date: Discharge Date: Expected LOS: Initial Reviewer: [id number] Initial Review Date: 06/30/2018 Generated: 07/01/18 3:40 pm Comments DCP- Discharge Planning Updated by [id number]: Compa Mancia on 07/01/18 1:[address] Patient Name: MO QUAN Encounter No: [id number] : 1930 Primary Insurance: MEDICARE A & B Anticipated DC Date: Planned Disposition: Shelter Facility External Planned Provider: [facility]; MEDICARE REHAB BED DCP follow-up note: CM RECEIVED DISCHARGE PLANNING ORDER, MET WITH PT IN ROOM WHO REPORTS PLAN TO RETURN TO "THE REHAB" FOR CONTINUED REHAB. IMPORTANT MESSAGE FROM MEDICARE PROVIDED AND EXPLAINED. PT ASKED CM TO CALL HIS AND LET HER KNOW THAT HE MAY DISCHARGE SOON TO REHAB. CM CALLED EVETTE QUAN, , LEFT MESSAGE ASKING FOR RETURN CALL. CM CALLED AND SPOKE TO DAUGHTER, HASEEB, , WHO REPORTS FAMILY IN AGREEMENT WITH RETURN TO THE [facility] FOR CONTINUED REHAB. CM CALLED JOELLE OF THE [facility], , WHO VEIFIED PT HAS REHAB BED HOLDING AT THE [facility] WHO WILL ACCEPT BACK FOR CONTINUED REHAB AT DISCHARGE. CM FAXED HOSPITAL UPDATE TO THE [facility] VIA JOELLE AT [phone]. FOR DISCHARGE TO THE [facility], FAX DISCHARGE INFORMATION TO THE [facility] AT [phone]; NURSE REPORT TO BE CALLED TO THE [facility] AT [phone]. THE [facility] TO ARRANGE VAN TRANSPORATION. Databases Software Consultant: Compa Mancia DCP- Discharge Planning Updated by [id number]: Compa Mancia on 06/30/18 1:[address] Patient Name: MO QUAN Admission Status: Elective Accout number: [id number] Admission Date: 06-25-2018 : 1930 Admission Diagnosis:SHORTNESS OF BREATH Attending: CHAD REDDING Current LOS: 5 Anticipated DC Date: Planned Disposition: Shelter Facility Primary Insurance: MEDICARE A & B PLANNED EXTERNAL PROVIDER: [facility] [place] [facility] Discharge Planning Comments: CM MET WITH PT IN ROOM TO DISCUSS DISCHARGE PLANNING AND NEEDS. PT REPORTS LIVING AT HOME INDEPENDENTLY WITH SPOUSE BUT HAS BEEN IN THE [facility] REHAB AFTER REHAB AT THE HOSPITAL. PT HAS CANE AND WALKER WITH NO MEDICAL EQUIPMENT PROVIDER PREFERENCE AND NO OUTSIDE SERVICES ASSISTING IN THE HOME. CM DISCUSSED AVAILABILITY OF HOME HEALTH, REHAB SERVICES AND MEDICAL EQUIPMENT. PT REPORTS HE WILL RETURN TO [facility] AT DISCHARGE. CM CALLED JOELLE OF THE [facility], , WHO VEIFIED PT HAS REHAB BED HOLDING AT THE [facility] WHO WILL ACCEPT BACK FOR CONTINUED REHAB AT DISCHARGE. CM FAXED HOSPITAL UPDATE TO THE [facility] VIA JOELLE AT [phone]. FOR DISCHARGE TO THE [facility], FAX DISCHARGE INFORMATION TO THE [facility] AT [phone]; NURSE REPORT TO BE CALLED TO THE [facility] AT [phone]. THE [facility] TO ARRANGE VAN TRANSPORATION. Databases Software Consultant: Compa Mancia DCPIA - Discharge Planning Initial Assessment Updated by [id number]: Compa Mancia on 06/30/18 2:27 pm * Is the patient Alert and Oriented? Yes * How many steps to enter\\exit or inside your home? * PCP DR. LIRIANO * [facility] [place] * Preadmission Environment Shelter Facility * Facility Name [facility] * ADLs Partial Dependent * Partial ADLs (Assistance needed) Ambulation Bathing Medication Management Toileting Transfers * Equipment Cane Walker * Other Equipment ALL MEDICAL EQUIPMENT PROVIDED BY THE [facility] * List name and contact numbers for known caregivers / representatives who currently or will assist patient after discharge: EVETTE QUAN, SPOUSE, HASEEB QUAN, DTR, * Verbal permission to speak to the caregivers and representatives has been obtained from the patient. Yes * Community resources currently utilized None * Please name any agencies selected above. NONE * Additional services required to return to the preadmission environment? No * Can the patient safely return to the preadmission environment? Yes * Has this patient been hospitalized within the prior 30 days at any hospital? Yes Coverage Notice Reviewer: [id number] Elisa Mancia Notice Issued Date-Time: 07/01/2018 13:00 Notice Type: IM Discharge Notice Notice Delivered To: Patient Relationship to Patient: Internal Combustion Engineer Name: Delivery Method: HAND - Hand Delivered Alexandra Days: Prior Verbal Notification: Recipient Understood Notice: Yes Recipient Signature: Yes Med Rec Note Co-signed by Attending: Coverage Notice Comment: Last DP export: 06/30/18 2:00 Patient Name: MO QUAN Page 65044 at 1440 All edits/amendments must be made on the electronic document DICTATION DATE: 07/01/181438 FIREARMS EXPERT: SHAY 07/01/181438 RPT#: [id number] DC DATE: STATUS: ADM IN [facility] [address] [place] [address] END OF REPORT
--- NOTE | ~2018-06-25 | MORECARE ---
CASE MANAGEMENT DISCHARGE SUMMARY PATIENT: MO QUAN UNIT: [id number] ADM DATE: 06/25/18 AGE: 88 : 31 SEX: M ROOM/BED: D.3252 AUTHOR: PAOLA,DOC PHYSICIAN: REFERRING PHYSICIAN: CHAD REDDING MD DATE OF SERVICE: 06/30/18 Discharge Plan Patient Name: MO QUAN Facility: [facility]:[place] : 1930 Planned Disposition: Group Home Facility Anticipated Discharge Date: Discharge Date: Expected LOS: Initial Reviewer: [id number] Initial Review Date: 06/30/2018 Generated: 06/30/18 3:40 pm Comments DCP- Discharge Planning Updated by [email or web address]: Compa Mancia on 06/30/18 1:[address] Patient Name: MO QUAN Admission Status: Elective Accout number: [id number] Admission Date: 06-25-2018 : 1930 Admission Diagnosis:SHORTNESS OF BREATH Attending: CHAD REDDING Current LOS: 5 Anticipated DC Date: Planned Disposition: Group Home Facility Primary Insurance: MEDICARE A & B PLANNED EXTERNAL PROVIDER: [facility] [place] [facility] Discharge Planning Comments: CM MET WITH PT IN ROOM TO DISCUSS DISCHARGE PLANNING AND NEEDS. PT REPORTS LIVING AT HOME INDEPENDENTLY WITH SPOUSE BUT HAS BEEN IN THE [facility] REHAB AFTER REHAB AT THE HOSPITAL. PT HAS CANE AND WALKER WITH NO MEDICAL EQUIPMENT PROVIDER PREFERENCE AND NO OUTSIDE SERVICES ASSISTING IN THE HOME. CM DISCUSSED AVAILABILITY OF HOME HEALTH, REHAB SERVICES AND MEDICAL EQUIPMENT. PT REPORTS HE WILL RETURN TO [facility] AT DISCHARGE. CM CALLED JOELLE OF THE [facility], , WHO VEIFIED PT HAS REHAB BED HOLDING AT THE [facility] WHO WILL ACCEPT BACK FOR CONTINUED REHAB AT DISCHARGE. CM FAXED HOSPITAL UPDATE TO THE [facility] VIA JOELLE AT [phone]. FOR DISCHARGE TO THE [facility], FAX DISCHARGE INFORMATION TO THE [facility] AT [phone]; NURSE REPORT TO BE CALLED TO THE [facility] AT [phone]. THE [facility] TO ARRANGE VAN TRANSPORATION. Porcelain Enamel Repairer: Compa Mancia DCPIA - Discharge Planning Initial Assessment Updated by [id number]: Compa Mancia on 06/30/18 2:27 pm * Is the patient Alert and Oriented? Yes * How many steps to enter\exit or inside your home? * PCP DR. LIRIANO * Pharmacy [facility] IN [place] * Preadmission Environment Group Home Facility * Facility Name [facility] * ADLs Partial Dependent * Partial ADLs (Assistance needed) Ambulation Bathing Medication Management Toileting Transfers * Equipment Cane Walker * Other Equipment ALL MEDICAL EQUIPMENT PROVIDED BY THE [facility] * List name and contact numbers for known caregivers / representatives who currently or will assist patient after discharge: EVETTE KADEEM, SPOUSE, HASEEB QUAN, DTR, * Verbal permission to speak to the caregivers and representatives has been obtained from the patient. Yes * Community resources currently utilized None * Please name any agencies selected above. NONE * Additional services required to return to the preadmission environment? No * Can the patient safely return to the preadmission environment? Yes * Has this patient been hospitalized within the prior 30 days at any hospital? Yes Last DP export: 06/30/18 1:32 Patient Name: MO QUAN Page 82116 at 1441 All edits/amendments must be made on the electronic document DICTATION DATE: 06/30/18 144 CRYPTOGRAPHY TEACHER: SHAY 06/30/18 1440 RPT#: [id number] SD DATE: STATUS: ADM IN [facility] [address] [place] [address] END OF REPORT
--- NOTE | ~2018-06-25 | MORECARE ---
CASE MANAGEMENT DISCHARGE SUMMARY PATIENT: MO QUAN UNIT: [id number] ADM DATE: 06/25/18 AGE: 88 : 31 SEX: M ROOM/BED: D.3205 AUTHOR: PAOLA,DOC PHYSICIAN: REFERRING PHYSICIAN: CHAD REDDING MD DATE OF SERVICE: 07/03/18 Discharge Plan Patient Name: MO QUAN Facility: [facility]:[place] : 1930 Planned Disposition: Intermediate Facility Anticipated Discharge Date: 07/03/18 Discharge Date: Expected LOS: 8 Initial Reviewer: [id number] Initial Review Date: 06/30/2018 Generated: 07/03/18 1:57 pm Comments DCP- Discharge Planning Updated by [email or web address]: Compa Mancia on 07/03/18 11:[address] Patient Name: MO QUAN Encounter No: [id number] : 1930 Primary Insurance: MEDICARE A & B Anticipated DC Date: 07-03-2018 Planned Disposition: Intermediate Facility External Planned Provider: [facility]; MEDICARE REHAB BED DCP follow-up note: CM SPOKE TO NURSE BRANDON WITH [facility] WHO ASKED IF PROCRIT CAN BE PROVIDED AT NURSING FACILITY. CM CALLED GRAZYNA OF [facility], WHO ADVISED IT CANNOT. CM SPOKE TO BRANDON WHO HAS INFORMED DR. REDDING, THE MEDICATION HAS BEEN CALLED IN, ASSISTED TO NOT PICK IT UP AND CM TO CHECK WITH RENAL FOR FURHTER INSTRUCTIONS. CM CALLED AND SPOKE TO MARIAN RICKS RENAL ARCHIVES TECHNICIAN WHO INFORMED CM THAT PT WILL NOT NEED PROCRIT OR IRON SUPPLEMENT AT THIS TIME AND ORDERED LABS TO BE DRAWN AND FAXED TO RENAL OFFICE WELL FOLLOW UP WITH RENAL DOCTOR. DIGITAL CONTENT SPECIALIST NURSE NOTIFIED. PT NOTIFIED AND IN AGREEMENT WITH DISCHARGE BACK TO REHAB TODAY. CM CALLED AND NOTIFIED PT'S [facility] WHO INFORMED CM THAT PT'S SPOUSE WAS AWARE ALREADY AND WAITING VAN HUMAN RESOURCES ADVISOR TODAY. CM CALLED GRAZYNA OF [facility], WHO VEIFIED PT HAS REHAB BED HOLDING AT THE [facility] WHO WILL ACCEPT BACK FOR CONTINUED REHAB AT DISCHARGE TODAY. CM RECEIVED DISCHARGE ORDERS, FAXED DISCHARGE INFORMATION TO THE [facility] AT [phone]. NURSE REPORT TO BE CALLED TO THE [facility] AT [phone]. CM RECEIVED MESSAGE FROM GRAZYNA OF THE [facility] [phone], VAN HUMAN RESOURCES ADVISOR SCHEDULED FOR 07-03-18, 1500 HOURS TODAY. DIGITAL CONTENT SPECIALIST NURSE NOTIFIED. EDEL RUVALCABA DCP- Discharge Planning Updated by [email or web address]: Compa Mancia on 07/02/18 2:[address] Patient Name: MO QUAN Encounter No: [id number] : 1930 Primary Insurance: MEDICARE A & B Anticipated DC Date: 07-03-2018 Planned Disposition: Intermediate Facility External Planned Provider: [facility]; MEDICARE REHAB BED DCP follow-up note: CM RECEIVED PHONE MESSAGE FROM NURSE TAYLOR WITH 'S PLAN FOR DISCHARGE TOMORROW, 07-03-18. CM CALLED JOELLE OF [facility], , WHO VEIFIED PT HAS REHAB BED HOLDING AT THE [facility] WHO WILL ACCEPT BACK FOR CONTINUED REHAB AT DISCHARGE. CM FAXED HOSPITAL UPDATE TO THE [facility] VIA [place] AT [phone]. FOR DISCHARGE TO THE [facility], FAX DISCHARGE INFORMATION TO THE [facility] AT [phone]; NURSE REPORT TO BE CALLED TO THE [facility] AT [phone]. THE [facility] TO ARRANGE VAN TRANSPORATION. Advisory Application Developer: Compa Mancia Appended by Compa Mancia on 07/02/2018 15:57 CDT: CM RECEIVED MESSAGE FROM JOELLE OF [facility], VAN HUMAN RESOURCES ADVISOR SCHEDULED FOR 07-03-18, 11:00AM. CM TO FOLLOW AND ASSIST NEEDED. EDEL RUVALCABA DCP- Discharge Planning Updated by [email or web address]: Compa Mancia on 07/01/18 1:[address] Patient Name: MO QUAN Encounter No: [id number] : 1930 Primary Insurance: MEDICARE A & B Anticipated DC Date: Planned Disposition: Intermediate Facility External Planned Provider: [facility] [place]; MEDICARE REHAB BED DCP follow-up note: CM RECEIVED DISCHARGE PLANNING ORDER, MET WITH PT IN ROOM WHO REPORTS PLAN TO RETURN TO "THE REHAB" FOR CONTINUED REHAB. IMPORTANT MESSAGE FROM MEDICARE PROVIDED AND EXPLAINED. PT ASKED CM TO CALL HIS AND LET HER KNOW THAT HE MAY DISCHARGE SOON TO REHAB. CM CALLED EVETTE QUAN, , LEFT MESSAGE ASKING FOR RETURN CALL. CM CALLED AND SPOKE TO DAUGHTER, HASEEB, , WHO REPORTS FAMILY IN AGREEMENT WITH RETURN TO THE [facility] FOR CONTINUED REHAB. CM CALLED JOELLE [facility], , WHO VEIFIED PT HAS REHAB BED HOLDING AT THE [facility] WHO WILL ACCEPT BACK FOR CONTINUED REHAB AT DISCHARGE. CM FAXED HOSPITAL UPDATE TO THE [facility] VIA [employer] AT [phone]. FOR DISCHARGE TO THE [facility], FAX DISCHARGE INFORMATION TO [facility] AT [phone]; NURSE REPORT TO BE CALLED TO THE [facility] AT [phone]. THE [facility] TO ARRANGE VAN TRANSPORATION. Advisory Application Developer: Compa Mancia DCP- Discharge Planning Updated by [id number]: Compa Mancia on 06/30/18 1:[address] Patient Name: MO QUAN Admission Status: Elective Accout number: [id number] Admission Date: 06-25-2018 : 1930 Admission Diagnosis:SHORTNESS OF BREATH Attending: CHAD REDDING Current LOS: 5 Anticipated DC Date: Planned Disposition: Intermediate Facility Primary Insurance: MEDICARE A & B PLANNED EXTERNAL PROVIDER: [facility] - MEDICARE REHAB BED Discharge Planning Comments: CM MET WITH PT IN ROOM TO DISCUSS DISCHARGE PLANNING AND NEEDS. PT REPORTS LIVING AT HOME INDEPENDENTLY WITH SPOUSE BUT HAS BEEN IN THE [facility] REHAB AFTER REHAB AT THE HOSPITAL. PT HAS CANE AND WALKER WITH NO MEDICAL EQUIPMENT PROVIDER PREFERENCE AND NO OUTSIDE SERVICES ASSISTING IN THE HOME. CM DISCUSSED AVAILABILITY OF HOME HEALTH, REHAB SERVICES AND MEDICAL EQUIPMENT. PT REPORTS HE WILL RETURN TO [facility] AT DISCHARGE. CM CALLED JOELLE [facility], , WHO VEIFIED PT HAS REHAB BED HOLDING AT THE [facility] WHO WILL ACCEPT BACK FOR CONTINUED REHAB AT DISCHARGE. CM FAXED HOSPITAL UPDATE TO THE [facility] VIA [employer] AT [phone]. FOR DISCHARGE TO THE [facility], FAX DISCHARGE INFORMATION TO THE [facility] AT [phone]; NURSE REPORT TO BE CALLED TO THE [facility] AT [phone]. THE [facility] TO ARRANGE VAN TRANSPORATION. Advisory Application Developer: Compa Mancia DCPIA - Discharge Planning Initial Assessment Updated by [id number]: Compa Mancia on 06/30/18 2:27 pm * Is the patient Alert and Oriented? Yes * How many steps to enter\\exit or inside your home? * PCP DR. LIRIANO * Pharmacy [facility] IN [place] * Preadmission Environment Intermediate Facility * Facility Name [facility] * ADLs Partial Dependent * Partial ADLs (Assistance needed) Ambulation Bathing Medication Management Toileting Transfers * Equipment Cane Walker * Other Equipment ALL MEDICAL EQUIPMENT PROVIDED [facility] * List name and contact numbers for known caregivers / representatives who currently or will assist patient after discharge: EVETTE QUAN, SPOUSE, HASEEB KADEEM, DTR, * Verbal permission to speak to the caregivers and representatives has been obtained from the patient. Yes * Community resources currently utilized None * Please name any agencies selected above. NONE * Additional services required to return to the preadmission environment? No * Can the patient safely return to the preadmission environment? Yes * Has this patient been hospitalized within the prior 30 days at any hospital? Yes Coverage Notice Reviewer: [id number] - Compa Mancia Notice Issued Date-Time: 07/01/2018 13:00 Notice Type: IM Discharge Notice Notice Delivered To: Patient Relationship to Patient: Body Shop Technician Name: Delivery Method: HAND - Hand Delivered Alexandra Days: Prior Verbal Notification: Recipient Understood Notice: Yes Recipient Signature: Yes Med Rec Note Co-signed by Attending: Coverage Notice Comment: Last DP export: 07/03/18 11:39 a Patient Name: MO QUAN Page 67290 at 1258 All edits/amendments must be made on the electronic document DICTATION DATE: 07/03/18 1257 EMT I/85: SHAY 07/03/18 1257 RPT#: [id number] DC DATE: STATUS: ADM IN [facility] [address] [place] [address] END OF REPORT
--- NOTE | ~2018-06-25 | HP ---
PATIENT: MO QUAN MEDICAL RECORD: [id number] ACCOUNT: [id number] LOCATION:[address] : [birth year] ADMISSION DATE: 06/25/18 PCP: CHAD REDDING MD HISTORY AND PHYSICAL EXAMINATION MO Jerome (88yo, M) ID# [id number]. Date/Time06/25/2018 11:[id number] Dept.NPP_[facility] ClinicProviderEDBETHANY REDDING MDInsuranceMed Primary: [place] ([place]) Insurance # : [id number] Employer Name : RETIRED Med Secondary: [place] Insurance # : [id number] Policy/Group # : [id number] Prescription: INFRX - Member is eligible. Chief Complaint Post op s/p CABG x 3, 04/07/18 one month rehab f/u Patient's Care Team Primary Care Provider: SEBASTIAN LIRIANO MD: [address] [place] [address], , Property Adjuster: LASHONDA WELLS MD: [address] [place] [address], , Patient's Pharmacies [facility] ([facility]): [address] [place] [address], , Vitals BP:112/60 sitting L arm 06/25/2018 11:48 amBP Cuff Size:adult 06/25/2018 11:48 amHR:96,irreg 06/25/2018 11:48 amHt:5 ft 6 in 06/25/2018 11:42 amWt:113 lbs 06/25/2018 11:49 amNotes:still in [place] doing rehab off HD but has creatinine elevated still, 4.7 on 06/1506/25/2018 11:52 amBMI:18.2 06/25/2018 11:49 amAllergies Reviewed Allergies NKDAMedications Reviewed Medications ascorbic acid (vitamin C) 1,000 mg tablet Take by oral route.[facility] Wilsoncalcium carbonate 250 mg calcium (625 mg) tablet Take by oral route.03/23/[facility] Wilsondonepezil 10 mg tablet start filledKat WilsonENALAPRIL MALEATE 10 MG TABS04/23/18 filledUPREHS MEDICARE FORMULARYFINASTERIDE 5 MG TABS01/02/18 [facility] FOR[facility]ARYlabetalol 200 mg tablet TK 1 T PO BID02/24/18 filledsurescriptsLABETALOL HCL 200 MG TABS03/23/18 filledUPREHS MEDICARE FORMULARYLABETALOL HYDROCHLORIDE 200 MG TABS02/24/18 [facility] MED[facility] FORMULARYloratadine 10 mg capsule Take by oral route.03/23/18 [facility] WilsonSERTRALINE HCL 100 MG TABS01/02/18 [facility]UP[facility] MEDIC[facility] FORMULARYsulfamethoxazole 800 mg-trimethoprim 160 mg tablet TK 1 T PO BID05/29/18 filledsurescriptsVaccines Reviewed Vaccines Some vaccines listed in Documents: #[id number], #[id number] could not be added to this patient's chart. Please review these documents and add these vaccines to the patient's chart manually as needed. Problems Reviewed Problems HISTORY AND PHYSICAL [id number] MO QUAN Hypertensive disorder Coronary arteriosclerosis Benign prostatic hyperplasia - Onset: 06/20/2018 Knee pain Dyspnea Current tear of medial cartilage AND/OR meniscus of knee Family History Reviewed Family History Father- Cerebrovascular accident - Emphsemia (previously recorded as Stroke) - Coronary arteriosclerosisMother- Cerebrovascular accident - previously recorded as StrokeSocial History Reviewed Social History General Occupation: Retired Marital status: Exercise level: Occasional Smoking Status: Former smoker (Notes: quit 1962) Non-smoker Alcohol intake: None Caffeine intake: None Is blood transfusion acceptable in an emergency?: Y Surgical History Reviewed Surgical History Other - 04/07/2018 - triple bipass Knee arthroscopy - 01/08/2012 Knee arthroscopy - 12/19/2011 Past Medical History Reviewed Past Medical History Angina: Y Chest Pain: Y Coronary Artery Disease: Y Depression: Y Heart Rhythm Disorder: Y Hyperlipidemia: Y Hypertension: Y Joint Pain or Swelling: Y - hip pain when walking Pain in legs when walking: Y Prostate Problems: Y Rubella, Mauritian Measles: Y Shortness of Breath: Y Documents for Discussion N/A Screening None recorded. HPI Post-Op Visit Reported by patient. Onset/Timing: date of surgery: (04/07/18) Quality: procedure: (cabg x 3) Associated Symptoms: incision healing well; normal appetite; normal bowel function; no constipation; no nausea; no emesis; pain improving; no pain; no fever; no HISTORY AND PHYSICAL [id number] MO QUAN bleeding; no lower extremity edema/pain; no dysuria/urinary symptoms; fatigue; SOB which has worsened over the past two weeks, and has developed tremors over the past couple of weeks History of coronary bypass Congestive heart failure Shortness of breath ROS Patient reports exercise intolerance but reports no fever, no night sweats, no significant weight gain, and no significant weight loss. He reports shortness of breath when walking and known heart murmur but reports no chest pain, no arm pain on exertion, no shortness of breath when lying down, and no palpitations. He reports shortness of breath but reports no cough, no wheezing, and no coughing up blood. He reports muscle aches, muscle weakness, and arthralgias/joint pain but reports no back pain and no swelling in the ext remities. He reports no dry eyes, no irritation, and no vision change. He reports no difficulty hearing and no ear pain. He reports no frequent nosebleeds and no nose/sinus problems. He reports no sore throat, no bleeding gums, no snoring, no dry mouth, n o mouth ulcers, no oral abnormalities, and no teeth problems. He reports no jugular vein distension and no swollen glands. He reports no abdominal pain, no vomiting, normal appetite, no diarrhea, not vomiting blood, no nausea, and no constipation. He repor t s no incontinence, no difficulty urinating, no hematuria, and no increased frequency. He reports no abnormal mole, no jaundice, and no rashes. He reports no loss of consciousness, no weakness, no numbness, no seizures, no dizziness, and no headaches. He r e ports no depression, no sleep disturbances, feeling safe in relationship, and no alcohol abuse. He reports no fatigue. He reports no swollen glands and no bruising. He reports no runny nose, no sinus pressure, no itching, no hives, and no frequent sneezin g. ROS as noted in the HPI Physical Exam Patient is an 88-year-old male. Constitutional: General Appearance well nourished and developed and healthy-appearing. Level of Distress NAD. Ambulation in wheelchair. Cardiovascular: Apical Impulse not displaced or no thrill. Heart Auscultation normal s1 and s2, no rubs or gallops, and RRR and murmur. Arterial Pulses no abdominal aorta bruits, femoral bruits, or popliteal bruits and 2+ bilateral, carotid 2+ bilateral, femoral 2+ bilateral, popliteal 2+ bilateral, and dorsalis pedis 2+ bilateral. Edema no varicosities and edema. Lungs: Repiratory Effort no dyspnea. Percussion no dullness or flatness and hyperresonance . Auscultation no wheezing, rhonchi, or rales / crackles and breathing sounds normal, good air movement, and CTA except as noted. Abdomen: Bowl Sounds normal. Inspection and Palpation no tenderness, guarding, masses, or rebound tenderness and soft and non-distended. Liver non-tender and no hepatomegaly. Spleen non-tender and no splenomegaly. Hernia none palpable. Musculoskeletal System: Gait And Stance normal gait and stance. Digits and Nails normal nails and no cyanosis. Joints, Bones, and Muscles limited ROM and abnormal strength. Neurologic: Cranial Nerves grossly intact. Reflexes DTRs 2+ bilaterally throughout. Sensation grossly intact. HISTORY AND PHYSICAL [id number] MO QUAN Lymph Nodes: Lymph Nodes no cervical LAD, supraclavicular LAD, axillary LAD, or inguinal LAD. Eyes: Lids and Conjunctivae no discharge or pallor and non-injected. Pupils PERRLA. Cornea grossly intact. EOM EOMI. Lens clear. Sclerae non-icteric. Neck: Neck no masses, enlarged lymph nodes, or carotid bruits and supple and trachea midline. Thyroid no enlargement or nodules and non-tender. Skin: Inspection and Palpation no rash, lesions, ulcers, jaundice, or abnormal nevi. Assessment / Plan Congestive heart failure Dyspnea Renal failure Respiratory failure Supplemental oxygen 1. 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
--- NOTE | ~2018-06-25 | MORECARE ---
CASE MANAGEMENT DISCHARGE SUMMARY PATIENT: MO QUAN UNIT: [id number] ADM DATE: 06/25/18 AGE: 88 : 31 SEX: M ROOM/BED: D.2121 AUTHOR: TANIYA GUEVARA PHYSICIAN: REFERRING PHYSICIAN: CHAD REDDING MD DATE OF SERVICE: 06/30/18 Discharge Plan Patient Name: MO QUAN Facility: [facility]:[place] : 1930 Planned Disposition: Residential Facility Anticipated Discharge Date: Discharge Date: Expected LOS: Initial Reviewer: [email or web address] Initial Review Date: 06/30/2018 Generated: 06/30/18 3:25 pm Patient Name: MO QUAN Page [id number] at 1425 All edits/amendments must be made on the electronic document DICTATION DATE: 06/30/181423 COTTON EXPERT: SHAY 06/30/181423 RPT#: [id number] [place] DATE: STATUS: ADM IN [facility] [address] [place] [address] END OF REPORT
--- NOTE | ~2018-06-25 | MORECARE ---
CASE MANAGEMENT DISCHARGE SUMMARY PATIENT: MO QUAN UNIT: [id number] ADM DATE: 06/25/18 AGE: 88 : 31 SEX: M ROOM/BED: D.3627 AUTHOR: PAOLA,DOC PHYSICIAN: REFERRING PHYSICIAN: CHAD REDDING MD DATE OF SERVICE: 06/30/18 Discharge Plan Patient Name: MO QUAN Facility: [facility]:[place] : 1930 Planned Disposition: Nursing Home Facility Anticipated Discharge Date: Discharge Date: Expected LOS: Initial Reviewer: [email or web address] Initial Review Date: 06/30/2018 Generated: 06/30/18 4:00 pm Comments DCP- Discharge Planning Updated by [email or web address]: Compa Mancia on 06/30/18 1:[address] Patient Name: MO QUAN Admission Status: Elective Accout number: [id number] Admission Date: 06-25-2018 : 1930 Admission Diagnosis:SHORTNESS OF BREATH Attending: CHAD REDDING Current LOS: 5 Anticipated DC Date: Planned Disposition: Nursing Home Facility Primary Insurance: MEDICARE A & B PLANNED EXTERNAL PROVIDER: [facility] [place] [facility] Discharge Planning Comments: CM MET WITH PT IN ROOM TO DISCUSS DISCHARGE PLANNING AND NEEDS. PT REPORTS LIVING AT HOME INDEPENDENTLY WITH SPOUSE BUT HAS BEEN IN THE [facility] REHAB AFTER REHAB AT THE HOSPITAL. PT HAS CANE AND WALKER WITH NO MEDICAL EQUIPMENT PROVIDER PREFERENCE AND NO OUTSIDE SERVICES ASSISTING IN THE HOME. CM DISCUSSED AVAILABILITY OF HOME HEALTH, REHAB SERVICES AND MEDICAL EQUIPMENT. PT REPORTS HE WILL RETURN TO [facility] AT DISCHARGE. CM CALLED JOELLE OF THE [facility], , WHO VEIFIED PT HAS REHAB BED HOLDING AT THE [facility] WHO WILL ACCEPT BACK FOR CONTINUED REHAB AT DISCHARGE. CM FAXED HOSPITAL UPDATE TO THE [facility] VIA JOELLE AT [phone]. FOR DISCHARGE TO THE [facility], FAX DISCHARGE INFORMATION TO THE [facility] AT [phone]; NURSE REPORT TO BE CALLED TO THE [facility] AT [phone]. THE [facility] TO ARRANGE VAN TRANSPORATION. Senior Grant Writer: Compa Mancia DCPIA - Discharge Planning Initial Assessment Updated by [email or web address]: Compa Mancia on 06/30/18 2:27 pm * Is the patient Alert and Oriented? Yes * How many steps to enter\exit or inside your home? * PCP DR. LIRIANO * [facility]acy [facility] IN [place] * Preadmission Environment Nursing Home Facility * Facility Name [facility] * ADLs Partial Dependent * Partial ADLs (Assistance needed) Ambulation Bathing Medication Management Toileting Transfers * Equipment Cane Walker * Other Equipment ALL MEDICAL EQUIPMENT PROVIDED BY [facility] * List name and contact numbers for known caregivers / representatives who currently or will assist patient after discharge: EVETTE KADEEM, SPOUSE, HASEEB QUAN, DTR, * Verbal permission to speak to the caregivers and representatives has been obtained from the patient. Yes * Community resources currently utilized None * Please name any agencies selected above. NONE * Additional services required to return to the preadmission environment? No * Can the patient safely return to the preadmission environment? Yes * Has this patient been hospitalized within the prior 30 days at any hospital? Yes Last DP export: 06/30/18 1:41 Patient Name: MO QUAN Page 86899 at 1500 All edits/amendments must be made on the electronic document DICTATION DATE: 06/30/18 1500 ASSEMBLER WIRE MESH GATE: SHAY 06/30/18 1500 RPT#: [id number] DC DATE: STATUS: ADM IN [facility] [address] [place] [address] END OF REPORT
--- NOTE | ~2018-06-25 | MORECARE ---
CASE MANAGEMENT DISCHARGE SUMMARY PATIENT: MO QUAN UNIT: [id number] ADM DATE: 06/25/18 AGE: 88 : 31 SEX: M ROOM/BED: D.2121 AUTHOR: PAOLA,DOC PHYSICIAN: REFERRING PHYSICIAN: CHAD REDDING MD DATE OF SERVICE: 07/02/18 Discharge Plan Patient Name: MO QUAN Facility: [facility]:[place] : 1930 Planned Disposition: Senior Living Facility Anticipated Discharge Date: 07/03/18 Discharge Date: Expected LOS: 8 Initial Reviewer: [email or web address] Initial Review Date: 06/30/2018 Generated: 07/02/18 3:25 pm Comments DCP- Discharge Planning Updated by [email or web address]: Compa Mancia on 07/01/18 1:[address] Patient Name: MO QUAN Encounter No: [id number] : 1930 Primary Insurance: MEDICARE A & B Anticipated DC Date: Planned Disposition: Senior Living Facility External Planned Provider: [facility]; MEDICARE REHAB BED DCP follow-up note: CM RECEIVED DISCHARGE PLANNING ORDER, MET WITH PT IN ROOM WHO REPORTS PLAN TO RETURN TO "THE REHAB" FOR CONTINUED REHAB. IMPORTANT MESSAGE FROM MEDICARE PROVIDED AND EXPLAINED. PT ASKED CM TO CALL HIS AND LET HER KNOW THAT HE MAY DISCHARGE SOON TO REHAB. CM CALLED EVETTE QUAN, , LEFT MESSAGE ASKING FOR RETURN CALL. CM CALLED AND SPOKE TO DAUGHTER, HASEEB, , WHO REPORTS FAMILY IN AGREEMENT WITH RETURN TO [facility] FOR CONTINUED REHAB. CM CALLED JOELLE OF [facility], , WHO VEIFIED PT HAS REHAB BED HOLDING AT THE [facility] WHO WILL ACCEPT BACK FOR CONTINUED REHAB AT DISCHARGE. CM FAXED HOSPITAL UPDATE TO THE [facility] VIA JOELLE AT [phone]. FOR DISCHARGE TO THE [facility], FAX DISCHARGE INFORMATION TO THE [facility] AT [phone]; NURSE REPORT TO BE CALLED TO THE [facility] AT [phone]. THE [facility] TO ARRANGE VAN TRANSPORATION. Home Appliance Washing Machine Mechanic: Compa Manica DCP- Discharge Planning Updated by [email or web address]: Compa Mancia on 06/30/18 1:[address] Patient Name: MO QUAN Admission Status: Elective Accout number: [id number] Admission Date: 06-25-2018 : 1930 Admission Diagnosis:SHORTNESS OF BREATH Attending: CHAD REDDING Current LOS: 5 Anticipated DC Date: Planned Disposition: Senior Living Facility Primary Insurance: MEDICARE A & B PLANNED EXTERNAL PROVIDER: [facility] [place] [facility] Discharge Planning Comments: CM MET WITH PT IN ROOM TO DISCUSS DISCHARGE PLANNING AND NEEDS. PT REPORTS LIVING AT HOME INDEPENDENTLY WITH SPOUSE BUT HAS BEEN IN [facility] REHAB AFTER REHAB AT THE HOSPITAL. PT HAS CANE AND WALKER WITH NO MEDICAL EQUIPMENT PROVIDER PREFERENCE AND NO OUTSIDE SERVICES ASSISTING IN THE HOME. CM DISCUSSED AVAILABILITY OF HOME HEALTH, REHAB SERVICES AND MEDICAL EQUIPMENT. PT REPORTS HE WILL RETURN TO [facility] AT DISCHARGE. CM CALLED JOELLE OF THE [facility], , WHO VEIFIED PT HAS REHAB BED HOLDING AT THE [facility] WHO WILL ACCEPT BACK FOR CONTINUED REHAB AT DISCHARGE. CM FAXED HOSPITAL UPDATE TO THE [facility] VIA JOELLE AT [phone]. FOR DISCHARGE TO [facility], FAX DISCHARGE INFORMATION TO THE [facility] AT [phone]; NURSE REPORT TO BE CALLED TO THE [facility] AT [phone]. [facility] TO ARRANGE VAN TRANSPORATION. Home Appliance Washing Machine Mechanic: Compa Mancia DCPIA - Discharge Planning Initial Assessment Updated by [email or web address]: Compa Mancia on 06/30/18 2:27 pm * Is the patient Alert and Oriented? Yes * How many steps to enter\\exit or inside your home? * PCP DR. LIRIANO * [facility] [place] * Preadmission Environment Senior Living Facility * Facility Name [facility] * ADLs Partial Dependent * Partial ADLs (Assistance needed) Ambulation Bathing Medication Management Toileting Transfers * Equipment Cane Walker * Other Equipment ALL MEDICAL EQUIPMENT PROVIDED BY THE [facility] * List name and contact numbers for known caregivers / representatives who currently or will assist patient after discharge: EVETTE QUAN, SPOUSE, HASEEB QUAN, DTR, * Verbal permission to speak to the caregivers and representatives has been obtained from the patient. Yes * Community resources currently utilized None * Please name any agencies selected above. NONE * Additional services required to return to the preadmission environment? No * Can the patient safely return to the preadmission environment? Yes * Has this patient been hospitalized within the prior 30 days at any hospital? Yes Coverage Notice Reviewer: [email or web address] Elisa Mancia Notice Issued Date-Time: 07/01/2018 13:00 Notice Type: IM Discharge Notice Notice Delivered To: Patient Relationship to Patient: Bean Viner Name: Delivery Method: HAND - Hand Delivered Alexandra Days: Prior Verbal Notification: Recipient Understood Notice: Yes Recipient Signature: Yes Med Rec Note Co-signed by Attending: Coverage Notice Comment: Last DP export: 07/01/18 1:40 Patient Name: MO QUAN Page 71182 at 1425 All edits/amendments must be made on the electronic document DICTATION DATE: 07/02/181424 GOGGLES ASSEMBLER: SHAY 07/02/18 142 RPT#: [id number] DC DATE: STATUS: ADM IN [facility] [address] [place] [address] END OF REPORT
--- NOTE | ~2018-06-25 | EC ---
PATIENT:MO QUAN DATE OF SERVICE: 06/25/18 SEX: M MEDICAL RECORD: [id number] DATE OF : [birth year] LOCATION:D. D.212 AGE OF PATIENT: 88 ADMISSION DATE: 06/25/18 REFERRING PHYSICIAN: INTERPRETING PHYSICIAN: JHON AYOUB MD ECHOCARDIOGRAM REPORT ECHO CHARGES 4 ECHO COMPLETE Date: 06/25/18 CLINICAL DIAGNOSIS: CHF HX OF CAD/CABG ECHOCARDIOGRAPHIC MEASUREMENTS (adult normal given) AC root (d.<3.7cm) 3.5 cm LV Septum d (<1.2 cm> 1.6 cm Valve Excursion 1.9 cm LV Septum (systole) 1.7 cm Left Atria (s.<4.0cm> 3.6 cm LVPW d(<1.2cm) 1.4 cm RV (d.<2.3cm) 2.8 cm LVPW (sytole) 1.6 cm LV diastole(<5.6CM) 4.2 cm MV E-F(>70mm/sec) cm LV systole 2.8 cm LVOT Diameter 1.9 cm MV exc.(>10mm) 1.6 cm Est.ejection fraction (50-75%) % DOPPLER: LVIT cm/sec A 57.0 cm/sec E 78.0 cm/sec LA cm/sec RVSP 44 mmHg LVOT 86 cm/sec AOP1/2T 336 m/s Asc. Ao 107 cm/sec RVOT 107 cm/sec RA cm/sec PA 126 cm/sec AV Gradient Peak 4.56 mmHg AV Mean 2.81 mmHg AV Area 1.9 cm MV Gradient Peak 2.75 mmHg MV Mean 1.09 mmHg MV Area cm COMMENTS: Abattoir Supervisor: 2 CK ROJAS Manufacturing Job Titles: 3 Dr. Field TAPE# PACS Pericardial Effusion N DATE OF SERVICE: Adequate 2D, color flow, Spectral Doppler, and M-Mode. LVH is present. LV internal dimensions are normal, wall motion normal. EF is greater than or equal to 55%. Aortic valve sclerosis without stenosis by Doppler interrogation. Left atrium is normal at 3.6 cm. Mitral valve shows no prolapse. Mild MR. Right-sided chamber is grossly normal. Mild TR. TRANSINT:[id number] Voice Confirmation ID: [id number] DOCUMENT ID: [id number] ECHOCARDIOGRAM REPORT [id number] MO QUAN,JHON Cullen MD at 1418 CC: [id number] DICTATION DATE: 06/25/18 161 SUGAR COATING HAND: 06/25/18 2252 DIS IN 07/03/18 [place] [address] [place] [id number]
[~2018-06-25 12:58] MED LIST changes: +BACTRIM DS PO; +C-500500 MG PO; +MYLANTA / MAALO30 ML; +PROTONIX40 MG
[2018-06-25] MEDS ORDERED: ASCORBIC ACID500 MG PO (13:49)
[2018-06-25 13:54] VITALS: BP 140/89; BMI 22.6
[2018-06-25 15:15] VITALS: BP 138/82
[2018-06-25 16:02] LABS: BASOPHILS 0.3 % (0-2); EOSINOPHILS 1.9 % (0-7); HEMATOCRIT 29.3 % (42.0-54.0); HEMOGLOBIN 9.2 g/dL (13.5-17.5); IMMATURE GRANULOCYTES 3.2 % (0-5); LYMPHOCYTES 17.6 % (15-50); MCH 30.6 pg (26.0-34.0); MCHC 31.4 g/dL (31.0-37.0); MCV 97.3 fL (80.0-100.0); MEAN PLATELET VOLUME 9.8 fL (7.4-10.4); MONOCYTES 4.6 % (2-11); NEUTROPHILS 72.4 % (40-80); PLATELET COUNT 300 10x3/uL (130-400); RBC 3.01 10x6/uL (4.20-6.10); RDW 17.4 % (11.5-14.5); WBC 11.8 10x3/uL (4.8-10.8)
[2018-06-25 16:12] LABS: APTT 26.8 SECONDS (22.8-39.4); INR 1.07 (0.85-1.17); PROTIME 13.5 SECONDS (11.6-15.0)
[2018-06-25 16:21] LABS: ALBUMIN 2.7 g/dL (3.4-5.0); ANION GAP 21.3 mmol/L (8-16); BILIRUBIN - TOTAL 0.26 mg/dL (0.2-1.3); CALCIUM 9.1 mg/dL (8.5-10.1); CARBON DIOXIDE 20.5 mmol/L (21.0-32.0); CREATININE - SERUM 4.9 mg/dL (0.6-1.3); POTASSIUM - SERUM 4.8 mmol/L (3.5-5.1)
[2018-06-25 19:55] LABS: APPEARANCE HAZY (CLEAR); BILIRUBIN NEGATIVE (NEGATIVE); COLOR YELLOW (YELLOW); GLUCOSE NEGATIVE (NEGATIVE); KETONE NEGATIVE (NEGATIVE); NITRITE NEGATIVE (NEGATIVE); PROTEIN TRACE mg/dL (NEGATIVE); SPECIFIC GRAVITY 1.015 (1.005-1.020); UROBILINOGEN NORMAL (NORMAL)
[2018-06-25 19:59] LABS: AMORPHOUS SEDIMENT >1+ /lpf (NONE SEEN); BACTERIA FEW /hpf (NONE SEEN); EPITHELIAL CELLS OCC /hpf (0-5); GRANULAR CAST 0-5 /lpf (NONE SEEN); HYALINE CAST OCC /lpf (NONE SEEN); RED CELLS - URINE RARE /hpf (0-5); WHITE CELLS - URINE 0-5 /hpf (0-5)
[2018-06-25 20:49] VITALS: BP 117/62
[2018-06-26 01:18] VITALS: BP 128/68
[2018-06-26 06:08] LABS: HEMATOCRIT 25.4 % (42.0-54.0); HEMOGLOBIN 8.3 g/dL (13.5-17.5); MCH 31.1 pg (26.0-34.0); MCHC 32.7 g/dL (31.0-37.0); MEAN PLATELET VOLUME 9.4 fL (7.4-10.4); NEUTROPHILS 76.6 % (40-80); PLATELET COUNT 276 10x3/uL (130-400); RBC 2.67 10x6/uL (4.20-6.10); RDW 15.9 % (11.5-14.5)
[2018-06-26 06:10] LABS: MCV 95.1 fL (80.0-100.0); WBC 8.6 10x3/uL (4.8-10.8)
[2018-06-26 06:15] VITALS: BP 124/63
[2018-06-26 06:23] LABS: ALBUMIN 2.3 g/dL (3.4-5.0); ANION GAP 17.6 mmol/L (8-16); BILIRUBIN - TOTAL 0.29 mg/dL (0.2-1.3); CALCIUM 8.6 mg/dL (8.5-10.1); CARBON DIOXIDE 23.1 mmol/L (21.0-32.0); CREATININE - SERUM 4.8 mg/dL (0.6-1.3); POTASSIUM - SERUM 4.7 mmol/L (3.5-5.1); PROTEIN - SERUM 6.1 g/dL (6.4-8.2); URIC ACID 6.7 mg/dL (2.6-7.2)
[2018-06-26 08:27] VITALS: BP 125/76
[2018-06-26 11:59] VITALS: BP 117/66
[2018-06-26 13:01] VITALS: BMI 22.6
[2018-06-26 15:29] VITALS: BP 117/70
[2018-06-26 20:00] VITALS: BP 105/52
[2018-06-27] VITALS: BP 109/59
[2018-06-27 04:00] VITALS: BP 120/74
[2018-06-27 05:46] LABS: BASOPHILS 0.2 % (0-2); EOSINOPHILS 1.9 % (0-7); HEMATOCRIT 27.3 % (42.0-54.0); HEMOGLOBIN 8.7 g/dL (13.5-17.5); LYMPHOCYTES 16.9 % (15-50); MCHC 31.9 g/dL (31.0-37.0); MEAN PLATELET VOLUME 9.9 fL (7.4-10.4); MONOCYTES 5.6 % (2-11); NEUTROPHILS 72.4 % (40-80); PLATELET COUNT 289 10x3/uL (130-400); RBC 2.81 10x6/uL (4.20-6.10); RDW 16.9 % (11.5-14.5); WBC 9.9 10x3/uL (4.8-10.8)
[2018-06-27 05:47] LABS: MCV 97.2 fL (80.0-100.0)
[2018-06-27 06:12] LABS: TOTAL IRON BIND CAPACITY 204 ug/dl (260-445)
[2018-06-27 06:15] LABS: ANION GAP 19.5 mmol/L (8-16); CALCIUM 8.7 mg/dL (8.5-10.1); CREATININE - SERUM 4.7 mg/dL (0.6-1.3); POTASSIUM - SERUM 4.5 mmol/L (3.5-5.1)
[2018-06-27 07:07] LABS: % SATURATION 32 % (15-55); IRON 66 ug/dl (35-150); UNSAT IRON BIND CAPACITY 139 ug/dl (150-375)
[2018-06-27 08:00] VITALS: BP 98/63
[2018-06-27 13:05] VITALS: BP 101/61
[2018-06-27 20:00] VITALS: BP 101/67
[2018-06-28 04:00] VITALS: BP 103/59
[2018-06-28 05:18] LABS: BASOPHILS 0.2 % (0-2); EOSINOPHILS 2.2 % (0-7); HEMATOCRIT 25.5 % (42.0-54.0); HEMOGLOBIN 8.2 g/dL (13.5-17.5); IMMATURE GRANULOCYTES 2.4 % (0-5); LYMPHOCYTES 15.7 % (15-50); MCH 30.9 pg (26.0-34.0); MCHC 32.2 g/dL (31.0-37.0); MCV 96.2 fL (80.0-100.0); NEUTROPHILS 74.5 % (40-80); PLATELET COUNT 291 10x3/uL (130-400); RBC 2.65 10x6/uL (4.20-6.10); RDW 17.1 % (11.5-14.5)
[2018-06-28 05:34] LABS: ANION GAP 17.6 mmol/L (8-16); CALCIUM 8.9 mg/dL (8.5-10.1); CARBON DIOXIDE 21.1 mmol/L (21.0-32.0); CREATININE - SERUM 5.2 mg/dL (0.6-1.3); POTASSIUM - SERUM 4.7 mmol/L (3.5-5.1); VANCOMYCIN - RANDOM 14.9 ug/mL (10.0-20.0)
[2018-06-28 07:53] VITALS: BP 96/59
[2018-06-28 12:02] VITALS: BP 111/61
[2018-06-28 15:35] VITALS: BP 96/59
[2018-06-29 04:00] VITALS: BP 126/81
[2018-06-29 05:23] LABS: BASOPHILS 0.1 % (0-2); EOSINOPHILS 1.2 % (0-7); HEMATOCRIT 24.5 % (42.0-54.0); HEMOGLOBIN 7.8 g/dL (13.5-17.5); IMMATURE GRANULOCYTES 1.6 % (0-5); LYMPHOCYTES 12.2 % (15-50); MCH 30.7 pg (26.0-34.0); MCHC 31.8 g/dL (31.0-37.0); MCV 96.5 fL (80.0-100.0); MEAN PLATELET VOLUME 9.9 fL (7.4-10.4); MONOCYTES 3.7 % (2-11); NEUTROPHILS 81.2 % (40-80); PLATELET COUNT 308 10x3/uL (130-400); RBC 2.54 10x6/uL (4.20-6.10); RDW 17.4 % (11.5-14.5)
[2018-06-29 05:26] LABS: WBC 16.3 10x3/uL (4.8-10.8)
[2018-06-29 05:37] LABS: ANION GAP 21.2 mmol/L (8-16); CALCIUM 8.7 mg/dL (8.5-10.1); CARBON DIOXIDE 19.4 mmol/L (21.0-32.0); CREATININE - SERUM 5.2 mg/dL (0.6-1.3); POTASSIUM - SERUM 4.6 mmol/L (3.5-5.1); VANCOMYCIN - RANDOM 21.5 ug/mL (10.0-20.0)
[2018-06-29 08:15] VITALS: BP 110/60
[2018-06-29 12:29] VITALS: BP 108/70
[2018-06-29 15:49] VITALS: BP 104/64
[2018-06-29 20:27] VITALS: BP 106/63
[2018-06-30] VITALS: BP 109/61
[2018-06-30 05:47] LABS: BASOPHILS 0.2 % (0-2); EOSINOPHILS 1.2 % (0-7); HEMATOCRIT 23.4 % (42.0-54.0); IMMATURE GRANULOCYTES 3.5 % (0-5); LYMPHOCYTES 12.7 % (15-50); MCH 30.9 pg (26.0-34.0); MCHC 32.1 g/dL (31.0-37.0); MCV 96.3 fL (80.0-100.0); MEAN PLATELET VOLUME 9.8 fL (7.4-10.4); MONOCYTES 5.2 % (2-11); NEUTROPHILS 77.2 % (40-80); PLATELET COUNT 286 10x3/uL (130-400); RBC 2.43 10x6/uL (4.20-6.10); RDW 17.5 % (11.5-14.5)
[2018-06-30 05:57] VITALS: BP 100/64
[2018-06-30 05:59] LABS: ANION GAP 18.7 mmol/L (8-16); CALCIUM 8.7 mg/dL (8.5-10.1); CARBON DIOXIDE 18.6 mmol/L (21.0-32.0); CREATININE - SERUM 5.6 mg/dL (0.6-1.3); POTASSIUM - SERUM 4.3 mmol/L (3.5-5.1); VANCOMYCIN - RANDOM 17.9 ug/mL (10.0-20.0)
[2018-06-30 06:08] LABS: HEMOGLOBIN 7.5 g/dL (13.5-17.5); WBC 11.5 10x3/uL (4.8-10.8)
[2018-06-30 11:47] VITALS: BP 120/70
[2018-06-30 16:04] VITALS: BP 102/55
[2018-06-30 17:32] VITALS: Ht 167.6 cm; Wt 62.7 kg
[2018-06-30 21:30] VITALS: BP 104/71
[2018-07-01 00:49] VITALS: BP 120/77
[2018-07-01 05:43] LABS: BASOPHILS 0.3 % (0-2); EOSINOPHILS 2.3 % (0-7); IMMATURE GRANULOCYTES 4.5 % (0-5); LYMPHOCYTES 15.6 % (15-50); MCH 31.1 pg (26.0-34.0); MCHC 32.9 g/dL (31.0-37.0); MCV 94.6 fL (80.0-100.0); MEAN PLATELET VOLUME 10.1 fL (7.4-10.4); MONOCYTES 4.9 % (2-11); NEUTROPHILS 72.4 % (40-80); PLATELET COUNT 302 10x3/uL (130-400); RDW 17.9 % (11.5-14.5); WBC 10.8 10x3/uL (4.8-10.8)
[2018-07-01 05:50] LABS: HEMATOCRIT 28.3 % (42.0-54.0); HEMOGLOBIN 9.3 g/dL (13.5-17.5); RBC 2.99 10x6/uL (4.20-6.10)
[2018-07-01 05:59] LABS: ANION GAP 19.7 mmol/L (8-16); CALCIUM 8.6 mg/dL (8.5-10.1); CARBON DIOXIDE 18.6 mmol/L (21.0-32.0); CREATININE - SERUM 5.3 mg/dL (0.6-1.3); POTASSIUM - SERUM 4.3 mmol/L (3.5-5.1); VANCOMYCIN - RANDOM 19.3 ug/mL (10.0-20.0)
[2018-07-01 06:23] VITALS: BP 125/76
[2018-07-01 08:45] VITALS: BP 139/76
[2018-07-01 20:00] VITALS: BP 117/69; BP 142/86
[2018-07-02] VITALS: BP 142/86
[2018-07-02 04:00] VITALS: BP 136/82
[2018-07-02 16:56] VITALS: BP 116/72
[2018-07-02 20:45] VITALS: BP 141/82
[2018-07-03] VITALS: BP 132/84
[2018-07-03 04:00] VITALS: BP 142/91
[2018-07-03 08:07] VITALS: BP 107/70
[2018-07-03 10:21] LABS: HEMATOCRIT 29.7 % (42.0-54.0); HEMOGLOBIN 9.8 g/dL (13.5-17.5); MCH 31.5 pg (26.0-34.0); MCV 95.5 fL (80.0-100.0); MEAN PLATELET VOLUME 9.7 fL (7.4-10.4); RBC 3.11 10x6/uL (4.20-6.10); RDW 17.6 % (11.5-14.5)
[2018-07-03 10:34] LABS: ALBUMIN 2.3 g/dL (3.4-5.0); ANION GAP 20.4 mmol/L (8-16); BILIRUBIN - TOTAL 0.34 mg/dL (0.2-1.3); CALCIUM 8.8 mg/dL (8.5-10.1); CARBON DIOXIDE 17.6 mmol/L (21.0-32.0); CREATININE - SERUM 4.8 mg/dL (0.6-1.3)
[2018-07-03] MEDS ORDERED: FLOMAX0.4 MG PO (10:54)
[2018-07-03] MEDS ORDERED: PROCRIT/EP10000 UNIT SC (10:55)
[2018-07-03] MEDS ORDERED: TOPROL XL25 MG PO (10:56)
[2018-07-03] MEDS ORDERED: COZAAR25 MG PO (10:56)
[2018-07-03] MEDS ORDERED: LEVAQUIN250 MG PO (10:58)
[2018-07-03 11:44] VITALS: BP 113/71
== END 2018-07-03 16:37 | DRG 177 ==
LOC: D.M2 12:58
PROVIDERS: Internal Medicine Cardiovascular Disease; Internal Medicine Nephrology
DX: J69.0 Pneumonitis due to inhalation of food and vomit (principal); I50.33 Acute on chronic diastolic (congestive) heart failure; J96.21 Acute and chronic respiratory failure with hypoxia; I13.0 Hypertensive heart and chronic kidney disease with heart failure and stage 1 through stage 4 chronic kidney disease, or unspecified chronic kidney disease; N18.4 Chronic kidney disease, stage 4 (severe); N17.9 Acute kidney failure, unspecified; J98.11 Atelectasis; G72.81 Critical illness myopathy; J15.6 Pneumonia due to other Gram-negative bacteria; J15.212 Pneumonia due to Methicillin resistant Staphylococcus aureus; I25.10 Atherosclerotic heart disease of native coronary artery without angina pectoris; E78.5 Hyperlipidemia, unspecified; M19.90 Unspecified osteoarthritis, unspecified site; F32.9 Major depressive disorder, single episode, unspecified; N40.0 Benign prostatic hyperplasia without lower urinary tract symptoms; D63.1 Anemia in chronic kidney disease; M54.5 Low back pain; W19.XXXA Unspecified fall, initial encounter; Z95.1 Presence of aortocoronary bypass graft

== ENCOUNTER 2018-07-30 10:50 | Emergency (ER) | payer MEDICARE, BC ==
[~2018-07-30] VITALS: Ht 167.6 cm; Wt 51.7 kg
[~2018-07-30 10:50] MED LIST changes: +ASCORBIC ACID500 MG PO; +COZAAR25 MG PO; +FLOMAX0.4 MG PO; +LEVAQUIN250 MG PO; +PROCRIT/EP10000 UNIT SC; +TOPROL XL25 MG PO
[2018-07-30 11:03] VITALS: Ht 167.6 cm; Wt 51.7 kg
[2018-07-30 12:08] LABS: BASOPHILS 0.2 % (0-2); EOSINOPHILS 0.4 % (0-7); HEMOGLOBIN 8.6 g/dL (13.5-17.5); IMMATURE GRANULOCYTES 0.9 % (0-5); LYMPHOCYTES 17.7 % (15-50); MCH 32.3 pg (26.0-34.0); MCHC 31.9 g/dL (31.0-37.0); MCV 101.5 fL (80.0-100.0); MEAN PLATELET VOLUME 10.2 fL (7.4-10.4); MONOCYTES 5.9 % (2-11); NEUTROPHILS 74.9 % (40-80); RBC 2.66 10x6/uL (4.20-6.10); RDW 16.1 % (11.5-14.5); WBC 11.3 10x3/uL (4.8-10.8)
[2018-07-30 12:09] LABS: PLATELET COUNT 224 10x3/uL (130-400)
[2018-07-30 12:12] LABS: ALBUMIN 2.7 g/dL (3.4-5.0); ANION GAP 16.2 mmol/L (8-16); BILIRUBIN - TOTAL 0.35 mg/dL (0.2-1.3); CALCIUM 8.4 mg/dL (8.5-10.1); CARBON DIOXIDE 21.5 mmol/L (21.0-32.0); CREATININE - SERUM 5.5 mg/dL (0.6-1.3); POTASSIUM - SERUM 4.7 mmol/L (3.5-5.1)
[2018-07-30 15:32] LABS: APPEARANCE CLEAR (CLEAR); BILIRUBIN NEGATIVE (NEGATIVE); COLOR YELLOW (YELLOW); GLUCOSE NEGATIVE (NEGATIVE); KETONE NEGATIVE (NEGATIVE); NITRITE NEGATIVE (NEGATIVE); PROTEIN NEGATIVE (NEGATIVE); UROBILINOGEN NORMAL (NORMAL)
[2018-07-30 20:09] VITALS: BP 111/68
== END 2018-07-30 20:10 ==
LOC: D.ER 10:50
PROVIDERS: Family Medicine
DX: R53.1 Weakness (principal); R06.09 Other forms of dyspnea; I10 Essential (primary) hypertension

== ENCOUNTER 2018-08-17 23:36 | Inpatient (IN) | payer MEDICARE, BC ==
[~2018-08-17] VITALS: Ht 167.6 cm; Wt 65.8 kg
--- NOTE | ~2018-08-17 | MORECARE ---
CASE MANAGEMENT DISCHARGE SUMMARY PATIENT: MO QUAN UNIT: [id number] ADM DATE: 08/18/18 AGE: 88 : 31 SEX: M ROOM/BED: D.2237 AUTHOR: TANIYA GUEVARA PHYSICIAN: REFERRING PHYSICIAN: SEBASTIAN LIRIANO MD DATE OF SERVICE: 08/19/18 Discharge Plan Patient Name: MO QUAN Facility: [facility]:[place] : 1930 Planned Disposition: SNF w Planned Readmission Anticipated Discharge Date: Discharge Date: Expected LOS: Initial Reviewer: [email or web address] Initial Review Date: 08/19/2018 Generated: 08/19/18 10:23 am Coverage Notice Reviewer: [email or web address] - Caitlin Gibbs Notice Issued Date-Time: 08/18/2018 15:30 Notice Type: Medicare Outpatient Observation Notice Notice Delivered To: Patient Relationship to Patient: Self Slide Maker Name: Delivery Method: HAND - Hand Delivered Alexandra Days: Prior Verbal Notification: Recipient Understood Notice: Yes Recipient Signature: Yes Med Rec Note Co-signed by Attending: Coverage Notice Comment: TOBIN explained, signed, copy given, original placed in MR Patient Name: MO QUAN Page 94813 at 0923 All edits/amendments must be made on the electronic document DICTATION DATE: 08/19/18921 BRUSH FILLER HAND: SHAY 08/19/18921 RPT#: [id number] DC DATE: STATUS: ADM IN [facility] [address] [place] [address] END OF REPORT
--- NOTE | ~2018-08-17 | MORECARE ---
CASE MANAGEMENT DISCHARGE SUMMARY PATIENT: MO QUAN UNIT: [id number] ADM DATE: 08/19/18 AGE: 88 : 31 SEX: M ROOM/BED: D.2237 AUTHOR: TANIYA GUEVARA PHYSICIAN: REFERRING PHYSICIAN: SEBASTIAN LIRIANO MD DATE OF SERVICE: 08/20/18 Discharge Plan Patient Name: MO QUAN Facility: [facility]:[place] : 1930 Planned Disposition: SNF w Planned Readmission Anticipated Discharge Date: Discharge Date: Expected LOS: Initial Reviewer: [email or web address] Initial Review Date: 08/19/2018 Generated: 08/20/18 11:01 am Comments DCP- Discharge Planning Updated by [email or web address]: Caitlin Gibbs on 08/19/18 8:[address] Patient Name: MO QUAN Admission Status: ER Accout number: [id number] Admission Date: 08-18-2018 : 1930 Admission Diagnosis: Attending: SEBASTIAN LIRIANO Current LOS: 1 Anticipated DC Date: Planned Disposition: SNF w Planned Readmission Primary Insurance: MEDICARE A & B Discharge Planning Comments: CM met with patient to discuss discharge planning, he is alone in the room. States he has been in rehab at [facility] since his heart surgery. States he plans on returning to [facility]. States prior to that, he was living with his in a one story home. I called Anisha Yoseph to verify that he has skilled days available and she will call me back. CM will continue to follow and assist with discharge planning/needs. Production Team Member: Caitlin Gibbs DCPIA - Discharge Planning Initial Assessment Updated by [email or web address]: Caitlin Gibbs on 08/19/18 9:24 am * Is the patient Alert and Oriented? Yes * How many steps to enter\exit or inside your home? 2/0 * PCP Dr. Liriano * Pharmacy [facility] * Preadmission Environment [facility] * Facility Name [facility] * ADLs Partial Dependent * Partial ADLs (Assistance needed) Ambulation Bathing Dressing Medication Management Transfers * Equipment Walker Wheelchair * List name and contact numbers for known caregivers / representatives who currently or will assist patient after discharge: May [facility] - [phone] * Verbal permission to speak to the caregivers and representatives has been obtained from the patient. Yes * Community resources currently utilized None * Additional services required to return to the preadmission environment? No * Can the patient safely return to the preadmission environment? Yes * Has this patient been hospitalized within the prior 30 days at any hospital? No External Providers External Provider: [facility] Next Contact Date: Service Request Date: Service Type: Resolution: Reviewer: Comments: Coverage Notice Reviewer: [email or web address] Elisa Gibbs Notice Issued Date-Time: 08/18/2018 15:30 Notice Type: Medicare Outpatient Observation Notice Notice Delivered To: Patient Relationship to Patient: Self Yeast Pusher Name: Delivery Method: HAND - Hand Delivered Alexandra Days: Prior Verbal Notification: Recipient Understood Notice: Yes Recipient Signature: Yes Med Rec Note Co-signed by Attending: Coverage Notice Comment: CRISTA explained, signed, copy given, original placed in MR Last DP export: 08/19/18 8:38 Patient Name: MO QUAN Page [id number] at 1002 All edits/amendments must be made on the electronic document DICTATION DATE: 08/20/18 1001 WINDOW GLAZIER HELPER: SHAY 08/20/18 1001 RPT#: [id number] DC DATE: STATUS: ADM IN [facility] [address] [place] [address] END OF REPORT
--- NOTE | ~2018-08-17 | MORECARE ---
CASE MANAGEMENT DISCHARGE SUMMARY PATIENT: MO QUAN UNIT: [id number] ADM DATE: 08/18/18 AGE: 88 : 31 SEX: M ROOM/BED: D.2237 AUTHOR: TANIYA GUEVARA PHYSICIAN: REFERRING PHYSICIAN: SEBASTIAN LIRIANO MD DATE OF SERVICE: 08/19/18 Discharge Plan Patient Name: MO QUAN Facility: [facility]:[place] : 1930 Planned Disposition: SNF w Planned Readmission Anticipated Discharge Date: Discharge Date: Expected LOS: Initial Reviewer: [email or web address] Initial Review Date: 08/19/2018 Generated: 08/19/18 10:30 am DCPIA - Discharge Planning Initial Assessment Updated by [email or web address]: Caitlin Gibbs on 08/19/18 9:24 am * Is the patient Alert and Oriented? Yes * How many steps to enter\exit or inside your home? 2/0 * PCP Dr. Liriano * Pharmacy [facility] Preadmission Environment [facility] * Facility Name [facility] * ADLs Partial Dependent * Partial ADLs (Assistance needed) Ambulation Bathing Dressing Medication Management Transfers * Equipment Walker Wheelchair * List name and contact numbers for known caregivers / representatives who currently or will assist patient after discharge: May [facility] - [phone] * Verbal permission to speak to the caregivers and representatives has been obtained from the patient. Yes * Community resources currently utilized None * Additional services required to return to the preadmission environment? No * Can the patient safely return to the preadmission environment? Yes * Has this patient been hospitalized within the prior 30 days at any hospital? No Coverage Notice Reviewer: [id number] - Caitlin Gibbs Notice Issued Date-Time: 08/18/2018 15:30 Notice Type: Medicare Outpatient Observation Notice Notice Delivered To: Patient Relationship to Patient: Self Flume Worker Name: Delivery Method: HAND - Hand Delivered Alexandra Days: Prior Verbal Notification: Recipient Understood Notice: Yes Recipient Signature: Yes Med Rec Note Co-signed by Attending: Coverage Notice Comment: TOBIN explained, signed, copy given, original placed in MR Last DP export: 08/19/18 8:23 Patient Name: MO QUAN Page 73619 at 0930 All edits/amendments must be made on the electronic document DICTATION DATE: 08/19/18929 TEXTILE COLORIST FORMULATOR: SHAY 08/19/18929 RPT#: [id number] DC DATE: STATUS: ADM IN [facility] [address] [place] [address] END OF REPORT
--- NOTE | ~2018-08-17 | MORECARE ---
CASE MANAGEMENT DISCHARGE SUMMARY PATIENT: MO QUAN UNIT: [id number] ADM DATE: 08/18/18 AGE: 88 : 31 SEX: M ROOM/BED: D.2237 AUTHOR: TANIYA GUEVARA PHYSICIAN: REFERRING PHYSICIAN: SEBASTIAN LIRIANO MD DATE OF SERVICE: 08/19/18 Discharge Plan Patient Name: MO QUAN Facility: [facility]:[place] : 1930 Planned Disposition: SNF w Planned Readmission Anticipated Discharge Date: Discharge Date: Expected LOS: Initial Reviewer: [email or web address] Initial Review Date: 08/19/2018 Generated: 08/19/18 10:38 am Comments DCP- Discharge Planning Updated by [email or web address]: Caitlin Gibbs on 08/19/18 8:[address] Patient Name: MO QUAN Admission Status: ER Accout number: [id number] Admission Date: 08-18-2018 : 1930 Admission Diagnosis: Attending: SEBASTIAN LIRIANO Current LOS: 1 Anticipated DC Date: Planned Disposition: SNF w Planned Readmission Primary Insurance: MEDICARE A & B Discharge Planning Comments: CM met with patient to discuss discharge planning, he is alone in the room. States he has been in rehab at [facility] since his heart surgery. States he plans on returning to [facility]. States prior to that, he was living with his in a one story home. I called Anisha Yoseph to verify that he has skilled days available and she will call me back. CM will continue to follow and assist with discharge planning/needs. Marine Electrician: Caitlin Gibbs DCPIA - Discharge Planning Initial Assessment Updated by [email or web address]: Caitlin Gibbs on 08/19/18 9:24 am * Is the patient Alert and Oriented? Yes * How many steps to enter\exit or inside your home? 2/0 * PCP Dr. Liriano * Pharmacy [facility] * Preadmission Environment Intermediate Facility * Facility Name [facility] * ADLs Partial Dependent * Partial ADLs (Assistance needed) Ambulation Bathing Dressing Medication Management Transfers * Equipment Walker Wheelchair * List name and contact numbers for known caregivers / representatives who currently or will assist patient after discharge: May - [facility] [phone] * Verbal permission to speak to the caregivers and representatives has been obtained from the patient. Yes * Community resources currently utilized None * Additional services required to return to the preadmission environment? No * Can the patient safely return to the preadmission environment? Yes * Has this patient been hospitalized within the prior 30 days at any hospital? No Coverage Notice Reviewer: [email or web address] Elisa Gibbs Notice Issued Date-Time: 08/18/2018 15:30 Notice Type: Medicare Outpatient Observation Notice Notice Delivered To: Patient Relationship to Patient: Self Patient Access Registrar Name: Delivery Method: HAND - Hand Delivered Alexandra Days: Prior Verbal Notification: Recipient Understood Notice: Yes Recipient Signature: Yes Med Rec Note Co-signed by Attending: Coverage Notice Comment: CRISTA explained, signed, copy given, original placed in MR Last DP export: 08/19/18 8:30 Patient Name: MO QUAN Page 12121 at 0938 All edits/amendments must be made on the electronic document DICTATION DATE: 08/19/18937 SHEAR OPERATOR AUTOMATIC: SHAY 08/19/18937 RPT#: [id number] DC DATE: STATUS: ADM IN [facility] [address] [place] [address] END OF REPORT
--- NOTE | ~2018-08-17 | HP ---
PATIENT: MO QUAN MEDICAL RECORD: [id number] ACCOUNT: [id number] LOCATION:D.MS [address] : [birth year] ADMISSION DATE: 08/18/18 PCP: No PCP HISTORY AND PHYSICAL EXAMINATION DATE OF ADMISSION: 08/18/2018 CHIEF COMPLAINT: Hip pain. HISTORY OF PRESENT ILLNESS: This is an 88-year-old white male who is currently at the [facility] getting rehab for generalized weakness. He reportedly fell transferring the wheelchair, he is complaining of pain in his back and hip. He denies loss of consciousness. He states that he did not hit his head and said he is having some pain in the posterior neck area as well. He was brought to the ER, had plain x-ray of the pelvis. A CT of the C-spine, left hip, and lumbar spine showing no acute fractures; however, there was possibly a mild acute compression fracture of T11 and L1 with his age and osteoporosis and pain, he is admitted, will have MRIs done to better delineate the damage. PAST MEDICAL HISTORY: He has chronic kidney disease stage IV, coronary artery disease status post CABG on 04/07/2018. He has essential hypertension, osteoarthritis, memory impairment, hyperlipidemia, depression, BPH, anemia, since his bypass surgery he has had weakness and has had a difficult time recovering, hence he is in the [facility] for that. PAST SURGICAL HISTORY: CABG in April 2018, has had right knee arthroplasty, TURP, sinus surgery remotely. ALLERGIES: No known drug allergies. FAMILY HISTORY: Noncontributory. HOME MEDICATIONS: Flomax 0.4 mg once a day, Cordarone 200 mg once a day, losartan 25 mg once a day, metoprolol XL 25 once a day, gabapentin 300 mg t.i.d. p.r.n. pain, Zoloft 100 mg once a day, Flonase nasal spray daily, Colace 100 mg twice a day p.r.n. constipation, Protonix 40 mg twice a day, vitamin C 1000 mg daily, Proscar 5 mg daily, donepezil 10 mg daily. 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 REVIEW OF SYSTEMS: GENERAL: No major weight changes. HEENT: He does have some sinus congestion at times. CARDIAC: History of coronary artery disease with bypass. RESPIRATORY: No known diagnosis of COPD or asthma. GASTROINTESTINAL: He has had some heartburn. GENITOURINARY: Enlarged prostate. MUSCULOSKELETAL: Has some chronic arthritis and back pains. NEUROLOGIC: He has had some memory loss. No migraines. No seizures. PSYCHIATRIC: He has had some depression. PHYSICAL EXAMINATION: VITAL SIGNS: Temperature 98.6, pulse 90, respirations 18, blood pressure 157/88, O2 sat 98%. GENERAL: He is awake. He is alert. He does not appear in distress. HISTORY AND PHYSICAL [id number] MO QUAN HEENT: Grossly within normal limits. NECK: Supple. HEART: Regular rate and rhythm. LUNGS: Fairly clear. ABDOMEN: Soft. EXTREMITIES: He has tenderness in the lower back and the left hip area to palpation. There is no lower extremity edema. LABORATORY DATA: No blood work was done. X-ray of the pelvis showed no acute abnormality. CT of the cervical spine showed no acute abnormality. CT of the left hip showed no acute abnormality. CT of the lumbar spine showed possible mild acute compression fracture noted at T11 and L1. ASSESSMENT: Fall with back and hip pain. PLAN: We will admit. Pain control, will do MRI of the lumbar spine and left hip. Other tests or procedures as warranted. TRANSINT:[id number] Voice Confirmation ID: [id number] DOCUMENT ID: [id number] SEBASTIAN LIRINAO MD at 2332 CC: [id number] DICTATION DATE: 08/18/18 09 RESEARCH ENVIRONMENTAL SCIENTIST: 08/18/18 1105 ADM IN [facility] [id number] [place] [address]
--- NOTE | ~2018-08-17 | MORECARE ---
CASE MANAGEMENT DISCHARGE SUMMARY PATIENT: MO QUAN UNIT: [id number] ADM DATE: 08/19/18 AGE: 88 : 31 SEX: M ROOM/BED: D.2237 AUTHOR: TANIYA GUEVARA PHYSICIAN: REFERRING PHYSICIAN: SEBASTIAN LIRIANO MD DATE OF SERVICE: 08/20/18 Discharge Plan Patient Name: MO QUAN Facility: [facility]:[place] : 1930 Planned Disposition: SNF w Planned Readmission Anticipated Discharge Date: Discharge Date: Expected LOS: Initial Reviewer: [email or web address] Initial Review Date: 08/19/2018 Generated: 08/20/18 12:17 pm Comments DCP- Discharge Planning Updated by [id number]: Caitlin Gibbs on 08/20/18 10:[address] Freed has held discharge for now due to his BUN/CR being more elevated today. I called and left a message with his that his discharge is on hold for now. I also notified Anisha Hameed with [facility]. CM will continue to follow and assist with discharge planning/needs. DCP- Discharge Planning Updated by [email or web address]: Caitlin Gibbs on 08/20/18 9:[address] Received orders for discharge. I spoke with his May, she is in agreement to discharge to the [facility]. He will be going back to a skilled (Medicare) bed at the [facility]. I have notified Anisha Hameed and she will call me with a hop picker time. I talked to Alex about ambulating him this morning with his back brace on. He states he will see him after lunch. CM will continue to follow and assist with discharge planning/needs. DCP- Discharge Planning Updated by [email or web address]: Caitlin Duboistameka on 08/19/18 8:[address] Patient Name: MO QUAN Admission Status: ER Accout number: [id number] Admission Date: 08-18-2018 : 1930 Admission Diagnosis: Attending: SEBASTIAN LIRIANO Current LOS: 1 Anticipated DC Date: Planned Disposition: SNF w Planned Readmission Primary Insurance: MEDICARE A & B Discharge Planning Comments: CM met with patient to discuss discharge planning, he is alone in the room. 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 States he plans on returning to [facility]. States prior to that, he was living with his in a one story home. I called Anisha Hameed to verify that he has skilled days available and she will call me back. CM will continue to follow and assist with discharge planning/needs. Talent Development Specialist: Caitlin Gibbs DCPIA - Discharge Planning Initial Assessment Updated by [email or web address]: Caitlin Gibsb on 08/19/18 9:24 am * Is the patient Alert and Oriented? Yes * How many steps to enter\exit or inside your home? 2/0 * PCP Dr. Liriano * Pharmacy [facility] on [facility] * Preadmission Environment [facility] * Facility Name [facility] * ADLs Partial Dependent * Partial ADLs (Assistance needed) Ambulation Bathing Dressing Medication Management Transfers * Equipment Walker Wheelchair * List name and contact numbers for known caregivers / representatives who currently or will assist patient after discharge: May aguilar - [phone] * Verbal permission to speak to the caregivers and representatives has been obtained from the patient. Yes * Community resources currently utilized None * Additional services required to return to the preadmission environment? No * Can the patient safely return to the preadmission environment? Yes * Has this patient been hospitalized within the prior 30 days at any hospital? No Coverage Notice Reviewer: [id number] - Caitlin Gibbs Notice Issued Date-Time: 08/18/2018 15:30 Notice Type: Medicare Outpatient Observation Notice Notice Delivered To: Patient Relationship to Patient: Self Cut Plug Packer Name: Delivery Method: HAND - Hand Delivered Alexandra Days: Prior Verbal Notification: Recipient Understood Notice: Yes Recipient Signature: Yes Med Rec Note Co-signed by Attending: Coverage Notice Comment: CRISTA explained, signed, copy given, original placed in MR Last DP export: 08/20/18 10:00 Patient Name: MO QUAN Page 03134 at 1117 All edits/amendments must be made on the electronic document DICTATION DATE: 08/20/187 CORE JAVA SOFTWARE ENGINEER: SHAY 08/20/187 RPT#: [id number] [place] DATE: STATUS: ADM IN [facility] [address] [facility] END OF REPORT
--- NOTE | ~2018-08-17 | MORECARE ---
CASE MANAGEMENT DISCHARGE SUMMARY PATIENT: MO QUAN UNIT: [id number] ADM DATE: 08/19/18 AGE: 88 : 31 SEX: M ROOM/BED: D.2237 AUTHOR: TANIYA GUEVARA PHYSICIAN: REFERRING PHYSICIAN: SEBASTIAN LIRIANO MD DATE OF SERVICE: 08/20/18 Discharge Plan Patient Name: MO QUAN Facility: [facility]:[place] : 1930 Planned Disposition: SNF w Planned Readmission Anticipated Discharge Date: Discharge Date: Expected LOS: Initial Reviewer: [id number] Initial Review Date: 08/19/2018 Generated: 08/20/18 5:10 pm Comments DCP- Discharge Planning Updated by [id number]: Caitlin Gibbs on 08/20/18 2:[address] had called me stating that she would like patient to return to [facility] today. His primary nurse notified Dr. Freed and states he is ok with discharging back to [facility] skilled bed. Anisha Hameed notified and will give us a grape picker time. DCP- Discharge Planning Updated by [email or web address]: Caitlin Gibbs on 08/20/18 10:[address] Freed has held discharge for now due to his BUN/CR being more elevated today. I called and left a message with his that his discharge is on hold for now. I also notified Anisha Hameed with [facility]. CM will continue to follow and assist with discharge planning/needs. DCP- Discharge Planning Updated by [email or web address]: Caitlin Gibbs on 08/20/18 9:[address] Received orders for discharge. I spoke with his May, she is in agreement to discharge to the [facility]. He will be going back to a skilled (Medicare) bed at the [facility]. I have notified Anisha Hameed and she will call me with a grape picker time. I talked to Alex about ambulating him this morning with his back brace on. He states he will see him after lunch. CM will continue to follow and assist with discharge planning/needs. DCP- Discharge Planning Updated by [email or web address]: Caitlin Gibbs on 08/19/18 8:[address] Patient Name: MO QUAN Admission Status: ER Accout number: [id number] Admission Date: 08-18-2018 : 1930 Admission Diagnosis: Attending: SEBASTIAN LIRIANO Current LOS: 1 Anticipated DC Date: Planned Disposition: SNF w Planned Readmission Primary Insurance: MEDICARE A & B Discharge Planning Comments: CM met with patient to discuss discharge planning, he is alone in the room. 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 States he plans on returning to [facility]. States prior to that, he was living with his in a one story home. I called Anisha Hameed to verify that he has skilled days available and she will call me back. CM will continue to follow and assist with discharge planning/needs. Flavor Tank Tender: Caitlin Gibbs DCPIA - Discharge Planning Initial Assessment Updated by [email or web address]: Caitlin Gibbs on 08/19/18 9:24 am * Is the patient Alert and Oriented? Yes * How many steps to enter\exit or inside your home? 2/0 * PCP Dr. Liriano * Pharmacy [facility] * Preadmission Environment [facility] Facility * Facility Name [facility] * ADLs Partial Dependent * Partial ADLs (Assistance needed) Ambulation Bathing Dressing Medication Management Transfers * Equipment Walker Wheelchair * List name and contact numbers for known caregivers / representatives who currently or will assist patient after discharge: May aguilar - [phone] * Verbal permission to speak to the caregivers and representatives has been obtained from the patient. Yes * Community resources currently utilized None * Additional services required to return to the preadmission environment? No * Can the patient safely return to the preadmission environment? Yes * Has this patient been hospitalized within the prior 30 days at any hospital? No Coverage Notice Reviewer: [id number] - Caitlin Gibbs Notice Issued Date-Time: 08/18/2018 15:30 Notice Type: Medicare Outpatient Observation Notice Notice Delivered To: Patient Relationship to Patient: Self Print Room Worker Name: Delivery Method: HAND - Hand Delivered Alexandra Days: Prior Verbal Notification: Recipient Understood Notice: Yes Recipient Signature: Yes Med Rec Note Co-signed by Attending: Coverage Notice Comment: TOBIN explained, signed, copy given, original placed in MR Last DP export: 08/20/18 10:17 Patient Name: MO QUAN Page 55921 at 1610 All edits/amendments must be made on the electronic document DICTATION DATE: 08/20/181608 REINFORCING STEEL WORKER: SHAY 08/20/181608 RPT#: [id number] [place] DATE: STATUS: ADM IN [facility] [address] [place] [address] END OF REPORT
--- NOTE | ~2018-08-17 | MORECARE ---
CASE MANAGEMENT DISCHARGE SUMMARY PATIENT: MO QUAN UNIT: [id number] ADM DATE: 08/19/18 AGE: 88 : 31 SEX: M ROOM/BED: D.2237 AUTHOR: TANIYA GUEVARA PHYSICIAN: REFERRING PHYSICIAN: SEBASTIAN LIRIANO MD DATE OF SERVICE: 08/20/18 Discharge Plan Patient Name: MO QUAN Facility: [facility]:[place] : 1930 Planned Disposition: SNF w Planned Readmission Anticipated Discharge Date: Discharge Date: Expected LOS: Initial Reviewer: Initial Review Date: 08/19/2018 Generated: 08/20/18 12:00 pm Comments DCP- Discharge Planning Updated by [email or web address]: Caitlin Gibbs on 08/20/18 9:[address] Received orders for discharge. I spoke with his May, she is in agreement to discharge to the [facility]. He will be going back to a skilled (Medicare) bed at the [facility]. I have notified Anisha Hameed and she will call me with a poultry picker time. I talked to Alex about ambulating him this morning with his back brace on. He states he will see him after lunch. CM will continue to follow and assist with discharge planning/needs. DCP- Discharge Planning Updated by [email or web address]: Caitlin Gibbs on 08/19/18 8:[address] Patient Name: MO QUAN Admission Status: ER Accout number: [id number] Admission Date: 08-18-2018 : 1930 Admission Diagnosis: Attending: SEBASTIAN LIRIANO Current LOS: 1 Anticipated DC Date: Planned Disposition: SNF w Planned Readmission Primary Insurance: MEDICARE A & B Discharge Planning Comments: CM met with patient to discuss discharge planning, he is alone in the room. 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 States he plans on returning to [facility]. States prior to that, he was living with his in a one story home. I called Anisha Hameed to verify that he has skilled days available and she will call me back. CM will continue to follow and assist with discharge planning/needs. Cotton Converter: Caitlin Gibbs DCPIA - Discharge Planning Initial Assessment Updated by [email or web address]: Caitlin Gibbs on 08/19/18 9:24 am * Is the patient Alert and Oriented? Yes * How many steps to enter\exit or inside your home? 2/0 * PCP Dr. Liriano * Pharmacy [facility] [address] * Preadmission Environment Longterm Facility * Facility Name [facility] * ADLs Partial Dependent * Partial ADLs (Assistance needed) Ambulation Bathing Dressing Medication Management Transfers * Equipment Walker Wheelchair * List name and contact numbers for known caregivers / representatives who currently or will assist patient after discharge: May aguilar - [phone] * Verbal permission to speak to the caregivers and representatives has been obtained from the patient. Yes * Community resources currently utilized None * Additional services required to return to the preadmission environment? No * Can the patient safely return to the preadmission environment? Yes * Has this patient been hospitalized within the prior 30 days at any hospital? No Coverage Notice Reviewer: [email or web address] - Caitlin Gibbs Notice Issued Date-Time: 08/18/2018 15:30 Notice Type: Medicare Outpatient Observation Notice Notice Delivered To: Patient Relationship to Patient: Self Clay Miner Name: Delivery Method: HAND - Hand Delivered Alexandra Days: Prior Verbal Notification: Recipient Understood Notice: Yes Recipient Signature: Yes Med Rec Note Co-signed by Attending: Coverage Notice Comment: CRISTA explained, signed, copy given, original placed in MR Last DP export: 08/20/18 9:01 Patient Name: MO QUAN Page [id number] at 1100 All edits/amendments must be made on the electronic document DICTATION DATE: 08/20/18 1100 REVIEW SPECIALIST: SHAY 08/20/18 1100 RPT#: [id number] DC DATE: STATUS: ADM IN [facility] [address] [place] [address] END OF REPORT
--- NOTE | ~2018-08-17 | MORECARE ---
CASE MANAGEMENT DISCHARGE SUMMARY PATIENT: MO QUAN UNIT: [id number] ADM DATE: 08/19/18 AGE: 88 : 31 SEX: M ROOM/BED: D.2237 AUTHOR: TANYIA GUEVARA PHYSICIAN: REFERRING PHYSICIAN: SEBASTIAN LIRIANO MD DATE OF SERVICE: 08/21/18 Discharge Plan Patient Name: MO QUAN Facility: [facility]:[place] : 1930 Planned Disposition: SNF w Planned Readmission Anticipated Discharge Date: Discharge Date: 08/20/2018 Expected LOS: Initial Reviewer: [email or web address] Initial Review Date: 08/19/2018 Generated: 08/21/18 9:09 am Comments DCP- Discharge Planning Updated by [email or web address]: Caitlin Gibbs on 08/20/18 2:[address] had called me stating that she would like patient to return to [facility] today. His primary nurse notified Dr. Freed and states he is ok with discharging back to [facility] skilled bed. Anisha Hameed notified and will give us a picker and packer time. DCP- Discharge Planning Updated by [email or web address]: Caitlin Gibbs on 08/20/18 10:[address] Freed has held discharge for now due to his BUN/CR being more elevated today. I called and left a message with his that his discharge is on hold for now. I also notified Anisha Hameed with [facility]. CM will continue to follow and assist with discharge planning/needs. DCP- Discharge Planning Updated by [email or web address]: Caitlin Gibbs on 08/20/18 9:[address] Received orders for discharge. I spoke with his May, she is in agreement to discharge to the [facility]. He will be going back to a skilled (Medicare) bed at the [facility]. I have notified Anisha Hameed and she will call me with a picker and packer time. I talked to Alex about ambulating him this morning with his back brace on. He states he will see him after lunch. CM will continue to follow and assist with discharge planning/needs. DCP- Discharge Planning Updated by [email or web address]: Caitlin Gibbs on 08/19/18 8:[address] Patient Name: MO QUAN Admission Status: ER Accout number: [id number] Admission Date: 08-18-2018 : 1930 Admission Diagnosis: Attending: SEBASTIAN LIRIANO Current LOS: 1 Anticipated DC Date: Planned Disposition: SNF w Planned Readmission Primary Insurance: MEDICARE A & B Discharge Planning Comments: CM met with patient to discuss discharge planning, he is alone in the room. States he has been in rehab at 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 States he plans on returning to [facility]. States prior to that, he was living with his in a one story home. I called Anisha Hameed to verify that he has skilled days available and she will call me back. CM will continue to follow and assist with discharge planning/needs. Taxation Inspector: Caitlin Gibbs DCPIA - Discharge Planning Initial Assessment Updated by [email or web address]: Caitlin Gibbs on 08/19/18 9:24 am * Is the patient Alert and Oriented? Yes * How many steps to enter\exit or inside your home? 2/0 * PCP Dr. Liriano * Pharmacy [facility] * Preadmission Environment Snf Facility * Facility Name [facility] * ADLs Partial Dependent * Partial ADLs (Assistance needed) Ambulation Bathing Dressing Medication Management Transfers * Equipment Walker Wheelchair * List name and contact numbers for known caregivers / representatives who currently or will assist patient after discharge: May aguilar - [phone] * Verbal permission to speak to the caregivers and representatives has been obtained from the patient. Yes * Community resources currently utilized None * Additional services required to return to the preadmission environment? No * Can the patient safely return to the preadmission environment? Yes * Has this patient been hospitalized within the prior 30 days at any hospital? No Coverage Notice Reviewer: [id number] - Caitlin Gibbs Notice Issued Date-Time: 08/18/2018 15:30 Notice Type: Medicare Outpatient Observation Notice Notice Delivered To: Patient Relationship to Patient: Self Resource Management Specialist Name: Delivery Method: HAND - Hand Delivered Alexandra Days: Prior Verbal Notification: Recipient Understood Notice: Yes Recipient Signature: Yes Med Rec Note Co-signed by Attending: Coverage Notice Comment: TOBIN explained, signed, copy given, original placed in MR Last DP export: 08/20/18 3:10 Patient Name: MO QUAN Page [id number] at 0809 All edits/amendments must be made on the electronic document DICTATION DATE: 08/21/18808 LABOR ECONOMIST: SHAY 08/21/18808 RPT#: [id number] DC DATE:08/20/18 STATUS: DIS IN [facility] [address] [place] [address] END OF REPORT
[2018-08-18] VITALS (8 sets, daily range): BP systolic 126–157; BP diastolic 66–88; BMI 23.4
[2018-08-18] MEDS ORDERED: AMIODARONE HCL200 MG PO (04:07)
[2018-08-18] MEDS ORDERED: COLACE100 MG PO (04:08)
[2018-08-18] MEDS ORDERED: MUCUS RELIEF400 MG PO (04:10)
[2018-08-18 11:11] LABS: BASOPHILS 0.2 % (0-2); EOSINOPHILS 1.3 % (0-7); HEMATOCRIT 29.7 % (42.0-54.0); HEMOGLOBIN 9.5 g/dL (13.5-17.5); IMMATURE GRANULOCYTES 1.1 % (0-5); LYMPHOCYTES 11.7 % (15-50); MCH 32.3 pg (26.0-34.0); MEAN PLATELET VOLUME 10.5 fL (7.4-10.4); MONOCYTES 6.2 % (2-11); NEUTROPHILS 79.5 % (40-80); PLATELET COUNT 251 10x3/uL (130-400); RBC 2.94 10x6/uL (4.20-6.10); RDW 14.7 % (11.5-14.5); WBC 11.1 10x3/uL (4.8-10.8)
[2018-08-18 11:27] LABS: ALBUMIN 2.7 g/dL (3.4-5.0); ANION GAP 17.3 mmol/L (8-16); BILIRUBIN - TOTAL 0.45 mg/dL (0.2-1.3); CALCIUM 8.5 mg/dL (8.5-10.1); CARBON DIOXIDE 21.9 mmol/L (21.0-32.0); CREATININE - SERUM 5.6 mg/dL (0.6-1.3); POTASSIUM - SERUM 4.2 mmol/L (3.5-5.1); PROTEIN - SERUM 6.2 g/dL (6.4-8.2)
[2018-08-19] VITALS: BP 144/86
[2018-08-19 04:00] VITALS: BP 158/75
[2018-08-19 08:37] VITALS: BP 149/77
[2018-08-19 12:45] VITALS: BP 140/81
[2018-08-19 16:18] VITALS: BP 142/71
[2018-08-19 20:54] VITALS: BP 151/86
[2018-08-20 01:05] VITALS: BP 124/80
[2018-08-20 06:29] VITALS: BP 134/74
[2018-08-20 08:43] VITALS: BP 143/85
[2018-08-20 09:07] VITALS: Ht 167.6 cm; Wt 65.8 kg
[2018-08-20 10:39] LABS: ANION GAP 19.4 mmol/L (8-16); CALCIUM 8.4 mg/dL (8.5-10.1); CREATININE - SERUM 5.9 mg/dL (0.6-1.3); POTASSIUM - SERUM 4.4 mmol/L (3.5-5.1)
[2018-08-20 12:10] VITALS: BP 125/79
[2018-08-20 16:12] VITALS: BP 125/70
[2018-08-21 00:43] VITALS: BP 108/64
== END 2018-08-20 18:30 | DRG 552 ==
LOC: D.ER 23:36 → D.EDHOLD 08-18 01:38 → OBSVTIME 08-18 01:38 → D.MS 08-18 01:38
PROVIDERS: Family Medicine; Internal Medicine Nephrology
DX: S32.019A Unspecified fracture of first lumbar vertebra, initial encounter for closed fracture (principal); S22.029A Unspecified fracture of second thoracic vertebra, initial encounter for closed fracture; I12.0 Hypertensive chronic kidney disease with stage 5 chronic kidney disease or end stage renal disease; N18.5 Chronic kidney disease, stage 5; M25.552 Pain in left hip; W05.0XXA Fall from non-moving wheelchair, initial encounter; F03.90 Unspecified dementia, unspecified severity, without behavioral disturbance, psychotic disturbance, mood disturbance, and anxiety; M54.2 Cervicalgia

== ENCOUNTER 2018-08-24 17:36 | Emergency (ER) | payer MEDICARE, BC ==
[~2018-08-24] VITALS: Ht 167.6 cm; Wt 65.9 kg
[~2018-08-24 17:36] MED LIST changes: +AMIODARONE HCL200 MG PO; +MUCUS RELIEF400 MG PO
[2018-08-24 17:45] VITALS: Ht 167.6 cm; Wt 65.9 kg
[2018-08-24 18:20] LABS: BASOPHILS 0.1 % (0-2); EOSINOPHILS 9.6 % (0-7); HEMATOCRIT 34.7 % (42.0-54.0); HEMOGLOBIN 10.8 g/dL (13.5-17.5); IMMATURE GRANULOCYTES 1.1 % (0-5); LYMPHOCYTES 12.5 % (15-50); MCH 32.3 pg (26.0-34.0); MCHC 31.1 g/dL (31.0-37.0); MCV 103.9 fL (80.0-100.0); MEAN PLATELET VOLUME 11.2 fL (7.4-10.4); MONOCYTES 5.8 % (2-11); NEUTROPHILS 70.9 % (40-80); PLATELET COUNT 201 10x3/uL (130-400); RBC 3.34 10x6/uL (4.20-6.10); RDW 15.1 % (11.5-14.5); WBC 13.1 10x3/uL (4.8-10.8)
[2018-08-24 18:47] LABS: ALBUMIN 2.7 g/dL (3.4-5.0); BILIRUBIN - TOTAL 0.32 mg/dL (0.2-1.3); CALCIUM 8.9 mg/dL (8.5-10.1); CARBON DIOXIDE 17.8 mmol/L (21.0-32.0); CREATININE - SERUM 9.4 mg/dL (0.6-1.3); POTASSIUM - SERUM 5.1 mmol/L (3.5-5.1); PROTEIN - SERUM 6.6 g/dL (6.4-8.2)
[2018-08-24 18:51] LABS: ANION GAP 26.3 mmol/L (8-16)
[2018-08-24 23:13] VITALS: BP 137/73
== END 2018-08-24 23:13 ==
LOC: D.ER 17:36
PROVIDERS: Family Medicine
DX: I95.9 Hypotension, unspecified (principal); E86.0 Dehydration; I12.9 Hypertensive chronic kidney disease with stage 1 through stage 4 chronic kidney disease, or unspecified chronic kidney disease; N18.9 Chronic kidney disease, unspecified; Z95.1 Presence of aortocoronary bypass graft; I44.7 Left bundle-branch block, unspecified

== ENCOUNTER 2018-08-30 07:33 | Inpatient (IN) | payer MEDICARE, BC ==
[~2018-08-30] VITALS: Ht 167.6 cm; Wt 62.7 kg
[2018-08-30] VITALS (9 sets, daily range): BP systolic 68–110; BP diastolic 42–65; Ht 167.6 cm; Wt 62.7 kg
[2018-08-30 08:22] LABS: BASOPHILS 0.1 % (0-2); EOSINOPHILS 0 % (0-7); HEMATOCRIT 34.4 % (42.0-54.0); HEMOGLOBIN 10.4 g/dL (13.5-17.5); IMMATURE GRANULOCYTES 0.9 % (0-5); MCH 32.7 pg (26.0-34.0); MCHC 30.2 g/dL (31.0-37.0); MCV 108.2 fL (80.0-100.0); MEAN PLATELET VOLUME 11.9 fL (7.4-10.4); MONOCYTES 3.6 % (2-11); NEUTROPHILS 90.4 % (40-80); RBC 3.18 10x6/uL (4.20-6.10); RDW 15.3 % (11.5-14.5); WBC 19.1 10x3/uL (4.8-10.8)
[2018-08-30 08:27] LABS: PLATELET COUNT 155 10x3/uL (130-400)
[2018-08-30 08:34] LABS: APPEARANCE TURBID (CLEAR); BILIRUBIN NEGATIVE (NEGATIVE); COLOR YELLOW (YELLOW); GLUCOSE NEGATIVE (NEGATIVE); KETONE NEGATIVE (NEGATIVE); NITRITE NEGATIVE (NEGATIVE); PROTEIN TRACE mg/dL (NEGATIVE); UROBILINOGEN NORMAL (NORMAL)
[2018-08-30 08:46] LABS: AMORPHOUS SEDIMENT >1+ /lpf (NONE SEEN); BACTERIA MANY /hpf (NONE SEEN); EPITHELIAL CELLS 0-5 /hpf (0-5); HYALINE CAST RARE /lpf (NONE SEEN); RED CELLS - URINE 0-5 /hpf (0-5); WHITE CELLS - URINE 0-5 /hpf (0-5)
[2018-08-30 08:54] LABS: ALBUMIN 2.1 g/dL (3.4-5.0); ALKALINE PHOSPHATASE 150 U/L (46-116); ALT (SGPT) 13 U/L (10-68); BILIRUBIN - TOTAL 0.46 mg/dL (0.2-1.3); CARBON DIOXIDE 14.7 mmol/L (21.0-32.0); CKMB 1.5 U/L (0.0-3.6); CREATININE - SERUM 13.7 mg/dL (0.6-1.3); GLUCOSE 110 mg/dL (74-106); PROTEIN - SERUM 5.9 g/dL (6.4-8.2); eGFR NON AFRICAN AMERICAN 4 mL/min (90-120)
[2018-08-30 08:57] LABS: PRO BNP 1 pg/mL (0-450)
[2018-08-30 08:58] LABS: TROPONIN-I 0.072 ng/mL (0.000-0.060)
[2018-08-30 09:08] LABS: CREATINE KINASE 36 UL (21-232)
[2018-08-30 09:09] LABS: CALC OSMOLALITY 399 mosm/kg (275-300); UREA NITROGEN 192 mg/dL (7-18)
[2018-08-30 09:10] LABS: CHLORIDE - SERUM 130 mmol/L (98-107); POTASSIUM - SERUM 6.4 mmol/L (3.5-5.1); SODIUM 170 mmol/L (136-145)
--- NOTE | 2018-08-30 14:24 | MORECARE ---
CASE MANAGEMENT DISCHARGE SUMMARY PATIENT: MO QUAN UNIT: [id number] ADM DATE: 08/30/18 AGE: 88 : 31 SEX: M ROOM/BED: D.2136 AUTHOR: TANIYA GUEVARA PHYSICIAN: REFERRING PHYSICIAN: YOLY MCCLOUD MD DATE OF SERVICE: 08/30/18 Discharge Plan Patient Name: MO QUAN Facility: [facility]:[place] : 1930 Planned Disposition: Anticipated Discharge Date: Discharge Date: Expected LOS: Initial Reviewer: [email or web address] Initial Review Date: 08/30/2018 Generated: 08/30/18 3:24 pm Patient Name: MO QUAN Page [id number] at 1424 All edits/amendments must be made on the electronic document DICTATION DATE: 08/30/181422 WIRE PHOTO OPERATOR: SHAY 08/30/18 1423 RPT#: [id number] DC DATE: STATUS: ADM IN [facility] [address] [place] [address] END OF REPORT
--- NOTE | 2018-08-30 14:56 | MORECARE ---
CASE MANAGEMENT DISCHARGE SUMMARY PATIENT: MO QUAN UNIT: [id number] ADM DATE: 08/30/18 AGE: 88 : 31 SEX: M ROOM/BED: D.2136 AUTHOR: TANIYA GUEVARA PHYSICIAN: REFERRING PHYSICIAN: YOLY MCCLOUD MD DATE OF SERVICE: 08/30/18 Discharge Plan Patient Name: MO QUAN Facility: [facility]:[place] : 1930 Planned Disposition: Anticipated Discharge Date: Discharge Date: Expected LOS: Initial Reviewer: [email or web address] Initial Review Date: 08/30/2018 Generated: 08/30/18 3:56 pm DCP- Discharge Planning Updated by [email or web address]: Torrie Martinez on 08/30/18 1:[address] CM RECEIVED A CM CONSULT FOR HOSPICE EVAL AND TREAT. CM WENT TO THE BEDSIDE. HIS DAUGHTER, KULWINDER, AND SON IN LAW, AMBROCIO WERE AT THE BEDSIDE. THEY STATE DR MCCLOUD SPOKE WITH THEM REGARDING HOSPICE. MATTHEW STATES SHE SPOKE WITH HER MOTHER AND SISTER, WHO ARE BOTH NURSES, ABOUT HOSPICE CONSULT. EVERYONE IS IN AGREEMENT TO NOT PLACE THE PATIENT IN HOSPICE.. KULWINDER STATES HE IS COMFORTABLE NOW. SHE DOES NOT WANT TO MOVE HIM. CM EXPLAINED [facility] HOSPICE. JULISA ALSO ADVISED THAT [facility] IS OUR CONTRACTED PROVIDER FOR HOSPICE. THE DAUGHTER LISTEN BUT STILL DECLINES HOSPICE CONSULT. CM EXPLAINED A MANAGER ASSISTED LIVING IS AVAILABLE TO ASSIST IF NEEDED. Last DP export: 08/30/18 1:24 Patient Name: MO QUAN Page [id number] at 1456 All edits/amendments must be made on the electronic document DICTATION DATE: 08/30/18 1450 HOUSE MOVER: SHAY 08/30/18 1450 RPT#: [id number] DC DATE: STATUS: ADM IN [facility] [address] [place] [address] END OF REPORT
[2018-08-31 00:45] VITALS: BP 102/45
--- NOTE | 2018-08-31 11:34 | MORECARE ---
CASE MANAGEMENT DISCHARGE SUMMARY PATIENT: MO QUAN UNIT: [id number] ADM DATE: 08/30/18 AGE: 88 : 31 SEX: M ROOM/BED: D.2136 AUTHOR: TANIYA GUEVARA PHYSICIAN: REFERRING PHYSICIAN: YOLY MCCLOUD MD DATE OF SERVICE: 08/31/18 Discharge Plan Patient Name: MO QUAN Facility: [facility]:[place] : 1930 Planned Disposition: Anticipated Discharge Date: 08/31/18 Discharge Date: 08/31/2018 Expected LOS: 1 Initial Reviewer: [email or web address] Initial Review Date: 08/30/2018 Generated: 08/31/18 12:34 pm DCP- Discharge Planning Updated by [email or web address]: Torrie Martinez on 08/30/18 1:[address] CM RECEIVED A CM CONSULT FOR HOSPICE EVAL AND TREAT. CM WENT TO THE BEDSIDE. HIS DAUGHTER, KULWINDER, AND SON IN LAW, AMBROCIO WERE AT THE BEDSIDE. THEY STATE DR MCCLOUD SPOKE WITH THEM REGARDING HOSPICE. MATTHEW STATES SHE SPOKE WITH HER MOTHER AND SISTER, WHO ARE BOTH NURSES, ABOUT HOSPICE CONSULT. EVERYONE IS IN AGREEMENT TO NOT PLACE THE PATIENT IN HOSPICE.. KULWINDER STATES HE IS COMFORTABLE NOW. SHE DOES NOT WANT TO MOVE HIM. CM EXPLAINED [facility]IP HOSPICE. CM ALSO ADVISED THAT [facility] IS OUR CONTRACTED PROVIDER FOR HOSPICE. THE DAUGHTER LISTEN BUT STILL DECLINES HOSPICE CONSULT. CM EXPLAINED A BAKERY AND [employer] SALES MANAGER IS AVAILABLE TO ASSIST IF NEEDED. Last DP export: 08/30/18 1:56 Patient Name: MO QUAN Page [id number] at 1134 All edits/amendments must be made on the electronic document DICTATION DATE: 08/31/18 1133 ASSISTANT PROFESSOR OF ANTHROPOLOGY: SHAY 08/31/18 1133 RPT#: [id number] DC DATE:08/31/18 STATUS: DIS IN [facility] [address] [place] [address] END OF REPORT
== END 2018-08-31 05:00 | DRG 871 ==
LOC: D.ER 07:33 → D.EDHOLD 10:00 → D.M2 10:56
PROVIDERS: Family Medicine; ADMIT Family Medicine
DX: A41.9 Sepsis, unspecified organism (principal); J18.9 Pneumonia, unspecified organism; N18.6 End stage renal disease; I50.31 Acute diastolic (congestive) heart failure; G93.41 Metabolic encephalopathy; J96.90 Respiratory failure, unspecified, unspecified whether with hypoxia or hypercapnia; I13.2 Hypertensive heart and chronic kidney disease with heart failure and with stage 5 chronic kidney disease, or end stage renal disease; R65.20 Severe sepsis without septic shock; F03.90 Unspecified dementia, unspecified severity, without behavioral disturbance, psychotic disturbance, mood disturbance, and anxiety; Z66 Do not resuscitate; K21.9 Gastro-esophageal reflux disease without esophagitis; I25.10 Atherosclerotic heart disease of native coronary artery without angina pectoris